=== PATIENT | female | born 1955 | race Caucasian/White ===

== ENCOUNTER 2017-05-30 00:23 | Inpatient (IN) | payer MEDICAID ==
[~2017-05-30] VITALS: Ht 160 cm; Wt 41.1 kg
[2017-05-30] MEDS ORDERED: traMADol 50 MG TAB PO ONE (02:30)
[2017-05-30] MEDS ORDERED: ALPRAZOLAM 1 MG TAB PO ONE (02:30)
--- NOTE | 2017-05-30 02:49 | RADRPT ---
PROCEDURE: CT L-Spine. CLINICAL INDICATION: Back pain TECHNIQUE: Section spiral CT images through the lumbar spine without contrast. Multiplanar recons tructions. .The CTDIvol is 6.56 mGy and the DLP is 194.55 mGycm. One or more of the following dose reduction techniques were used: automated exposure control, adjustment of the mA and/or kV accordin g to patient size, or use of iterative reconstruction technique. COMPARISON: None FINDINGS: Alignment anatomic. There is mottled mixed lytic and sclerotic density of multiple vertebral bodies . Most notable is T10 with associated probable pathologic compression fracture and approximately 55 % loss of vertebral body height. Minimal retropulsion. Mixed lytic and sclerotic density is seen t hroughout all visualized vertebral bodies, however. Minimal endplate depressions of T12 and L1 as w ell as L3-L5 but no other significant compression fracture is seen. Old left 10th rib fracture is s een. Lytic lesion of the left eleventh rib could be metastatic in nature. Slight mottled sclerotic density of the upper sacrum. No gross disk protrusion or extrusion. Small central disk bulges at L4-5 and L5-S1 with bilateral foraminal narrowing. Large staghorn calculus in the inferior left nicole al collecting system extending to the left renal pelvis is seen, measuring 3.2 x 1.1 cm. Slight vas cular calcification. IMPRESSION: Probable widespread bony metastatic disease with minor endplate depressions at multiple levels and a pproximate 55% probable pathologic compression fracture of T10. Large left renal staghorn calculus. RPTAT: [facility] Physician Shaniqua Date Time Electronically viewed and signed by Sima Becker Physician on 05/30/2017 02:48 JANINE/
--- NOTE | 2017-05-30 02:53 | RADRPT ---
PROCEDURE: Left knee. CLINICAL INDICATION: Pain. TECHNIQUE: Three views including AP, lateral and oblique views of the left knee were obtained. T he images reviewed on a PACS workstation. COMPARISON: None. FINDINGS: There is no fracture, dislocation or bone destruction. There is no significant joint space narrowin g or effusion. Bone mineralization is within normal limits. There is no radiopaque foreign body or abnormal calcification. IMPRESSION: No evidence of fracture. .Nazario Sheppard MD, Date Time Electronically viewed and signed by .Nazario Sheppard MD, on 05/30/2017 02:53 .T/
--- NOTE | 2017-05-30 03:03 | ERA ---
ER Documentation Chief Complaint Date/Time DATE: 05/30/17 TIME: 03:03 Chief Complaint Right hip pain and left knee pain HPI The patient is a 61-year-old female, presenting to the ER because of right hip pain and left knee pain for 2 weeks, denies any trauma, denies previous similar symptoms. She denies any fever, chills, chest pain, dyspnea, abdominal pain, vomiting, dysuria, diarrhea. She denies smoking or drinking or using any illicit drug On further questioning, she has had right breast lump and nipple discharge for about a year but did not seek medical attention Past medical/surgical history: None ROS All systems reviewed and are negative except as per history of present illness. Allergies Allergies: Coded Allergies: Penicillins (Verified Allergy, Unknown, 05/30/17) PMhx/Soc History of Surgery: No Hx Neurological Disorder: No Hx Respiratory Disorders: No Hx Cardiac Disorders: No Hx Psychiatric Problems: No Hx Miscellaneous Medical Probl: No Hx Alcohol Use: No Hx Substance Use: No Hx Tobacco Use: No Smoking Status: Current every day smoker Physical Exam Vitals Vital Signs Date Time Temp Pulse Resp B/P Pulse Ox O2 Delivery O2 Flow Rate FiO2 05/30/17 00:29 99.0 122 20 142/67 99 Physical Exam Const: No acute distress. Head: Atraumatic. Eyes: Normal Conjunctiva. ENT: Normal External Ears, Nose and Mouth. Neck: Full range of motion. No meningismus. Breast: Right breast is harden with discoloration, no nipple discharge Resp: Clear to auscultation bilaterally. Cardio: Regular tachycardia Abd: Soft, non distended, normal bowel sounds, non tender. Skin: No petechiae or rashes. Back: No midline or flank tenderness. Ext: Vague and mild left knee tenderness, no effusion, no edema. Mild left calf tenderness Neur: Awake and alert. No focal deficit Psych: Normal Mood and Affect. Result Diagram: 05/30/17 0320 05/30/17 0320 Results 24 hrs Laboratory Tests Test 05/30/17 03:20 White Blood Count 7.010^3/ul Red Blood Count 4.6710^6/ul Hemoglobin 12.7g/dl Hematocrit 38.8% Mean Corpuscular Volume 83.1fl Mean Corpuscular Hemoglobin 27.2pg Mean Corpuscular Hemoglobin Concent 32.7g/dl Red Cell Distribution Width 13.9% Platelet Count 32536^3/UL Mean Platelet Volume 9.0fl Neutrophils % 53.2% Lymphocytes % 32.8% Monocytes % 9.1% Eosinophils % 3.1% Basophils % 0.7% Nucleated Red Blood Cells % 0.0/100WBC Neutrophils # 3.710^3/ul Lymphocytes # 2.310^3/ul Monocytes # 0.610^3/ul Eosinophils # 0.210^3/ul Basophils # 0.110^3/ul Nucleated Red Blood Cells # 0.010^3/ul Prothrombin Time 13.2Sec Prothrombin Time Ratio 1.0 INR International Normalized Ratio 1.00 Activated Partial Thromboplast Time 31.4Sec Sodium Level 145mmol/L Potassium Level 3.9mmol/L Chloride Level 100mmol/L Carbon Dioxide Level 27mmol/L Anion Gap 22 Blood Urea Nitrogen 21mg/dl Creatinine 0.90mg/dl Glucose Level 107mg/dl Calcium Level 10.0mg/dl Total Bilirubin 0.3mg/dl Direct Bilirubin 0.00mg/dl Indirect Bilirubin 0.3mg/dl Aspartate Amino Transf (AST/SGOT) 142IU/L Alanine Aminotransferase (ALT/SGPT) 127IU/L Alkaline Phosphatase 162IU/L Total Protein 8.3g/dl Albumin 4.7g/dl Globulin 3.60g/dl Albumin/Globulin Ratio 1.30 Lipase 160U/L Current Medications Medications (Trade) Dose Ordered Sig/Jonatan Route PRN Reason Start Time Stop Time Status Last Admin Dose Admin Alprazolam (Xanax) 1 mg ONCE ONCE PO 05/30/17 02:30 05/30/17 02:31 DC 05/30/17 02:26 Tramadol HCl (Ultram) 50 mg ONCE ONCE PO 05/30/17 02:30 05/30/17 02:31 DC 05/30/17 02:26 IV Flush 10 ml 10 ml STK-MED ONCE .ROUTE 05/30/17 04:07 05/30/17 04:08 DC 05/30/17 04:24 Sodium Chloride (NS) 100 ml @ ud STK-MED ONCE .ROUTE 05/30/17 04:07 05/30/17 04:08 DC 05/30/17 04:24 Iohexol (Omnipaque 300mg/ ml) 150 ml STK-MED ONCE .ROUTE 05/30/17 04:07 05/30/17 04:08 DC 05/30/17 04:24 Procedures/MDM [place] [id number] Radiology Main Line: [phone] DIAGNOSTIC IMAGING REPORT Patient: DAKOTA GRAHAM : 1955 Age: 61 Sex: F MR #: [id number] DOS: 05/30/17 0202 Ordering MD: AMANDA LUTZ NP Location: E/R Room/Bed: PROCEDURE: CT L-Spine. CLINICAL INDICATION: Back pain TECHNIQUE: Section spiral CT images through the lumbar spine without contrast. Multiplanar reconstructions. .The CTDIvol is 6.56 mGy and the DLP is 194.55 mGycm. One or more of the following dose reduction techniques were used: automated exposure control, adjustment of the mA and/or kV according to patient size, or use of iterative reconstruction technique. COMPARISON: None FINDINGS: Alignment anatomic. There is mottled mixed lytic and sclerotic density of multiple vertebral bodies. Most notable is T10 with associated probable pathologic compression fracture and approximately 55% loss of vertebral body height. Minimal retropulsion. Mixed lytic and sclerotic density is seen throughout all visualized vertebral bodies, however. Minimal endplate depressions of T12 and L1 as well as L3-L5 but no other significant compression fracture is seen. Old left 10th rib fracture is seen. Lytic lesion of the left eleventh rib could be metastatic in nature. Slight mottled sclerotic density of the upper sacrum. No gross disk protrusion or extrusion. Small central disk bulges at L4-5 and L5-S1 with bilateral foraminal narrowing. Large staghorn calculus in the inferior left renal collecting system extending to the left renal pelvis is seen, measuring 3.2 x 1.1 cm. Slight vascular calcification. IMPRESSION: Probable widespread bony metastatic disease with minor endplate depressions at multiple levels and approximate 55% probable pathologic compression fracture of T10. Large left renal staghorn calculus. RPTAT: [facility] Physician Shaniqua Date Time Electronically viewed and signed by Sima Becker Physician on 05/30/2017 02 :48 LE/ CC: AMANDA LUTZ [place] [address] Radiology Main Line: [phone] DIAGNOSTIC IMAGING REPORT Patient: DAKOTA GRAHAM : 1955 Age: 61 Sex: F MR #: [id number] DOS: 05/30/17 0202 Ordering MD: AMANDA LUTZ NP Location: E/R Room/Bed: PROCEDURE: Left knee. CLINICAL INDICATION: Pain. TECHNIQUE: Three views including AP, lateral and oblique views of the left knee were obtained. The images reviewed on a PACS workstation. COMPARISON: None. FINDINGS: There is no fracture, dislocation or bone destruction. There is no significant joint space narrowing or effusion. Bone mineralization is within normal limits. There is no radiopaque foreign body or abnormal calcification. IMPRESSION: No evidence of fracture. .Nazario Sheppard MD, Date Time Electronically viewed and signed by .Nazario Sheppard MD, on 05/30/2017 02:53 .T/ CC: AMANDA LUTZ [place] [address] Radiology Main Line: [phone] DIAGNOSTIC IMAGING REPORT Patient: DAKOTA GRAHAM : 1955 Age: 61 Sex: F MR #: [id number] DOS: 05/30/17 0308 Ordering MD: KENDAL QUAN MD Location: E/R Room/Bed: PROCEDURE: Ultrasound examination of the right lower extremity with Doppler. CLINICAL INDICATION: Right leg pain and swelling. TECHNIQUE: Multiple sonographic images of the right lower extremity were performed with arriola scale and color Doppler. COMPARISON: None. FINDINGS: The right common femoral, superficial femoral and popliteal veins demonstrate normal color flow, waveforms, compression and response augmentation. There is no evidence of deep venous thrombosis. IMPRESSION: No evidence of deep venous thrombosis within the right lower extremity. .Nazario Sheppard MD, Date Time Electronically viewed and signed by .Nazario Sheppard MD, MD on 05/30/2017 03:37 .T/ CC: KENDAL QUAN MD [place] [address] Radiology Main Line: [phone] DIAGNOSTIC IMAGING REPORT Patient: DAKOTA GRAHAM : 1955 Age: 61 Sex: F MR #: [id number] DOS: 05/30/17 0352 Ordering MD: KENDAL QUAN MD Location: E/R Room/Bed: PROCEDURE: CT chest, abdomen and pelvis with contrast. CLINICAL INDICATION: Injury and pain. TECHNIQUE: CT of the chest, abdomen and pelvis was performed on a multi- detector high-resolution CT scanner. Contiguous axial images were obtained after the administration of 90 cc of Omnipaque-300 intravenous contrast. Coronal and sagittal reformatted images were also obtained. Images were reviewed on the PACS workstation. One or more of the following dose reduction techniques were used: - Automated exposure control. - Adjustment of the mA and/or kV according to patient size. - Use of iterative reconstruction technique. Exam CTD/vol = 4.25 mGy. Total exam DLP = 277.13 mGy-cm. COMPARISON: None. FINDINGS: Chest: There is subcutaneous stranding within the right breast with a deep fluid collection measuring 4.7 x 1.2 cm. The visualized thyroid gland is unremarkable. There is an enlarged right axillary lymph node measuring 2.0 x 1.0 cm. There are no enlarged mediastinal or hilar lymph nodes. The heart is normal in size. There is no pericardial thickening or effusion. The aorta is of normal course and caliber. There is biapical scarring. There is mild bibasilar atelectasis. There is no pleural effusion. The central tracheobronchial tree is within normal limits. There is no pneumothorax. Abdomen: The liver is normal in size. There is a 6 mm hypodense lesion within the inferior right lobe of the liver which is too small to further characterize. There is no dilatation of the biliary tree. The gallbladder is not distended. The spleen, pancreas and bilateral adrenal glands are within normal limits. Bilateral kidneys are normal in size with symmetric enhancement. There is a staghorn calculus within the lower pole of the left kidney. There is scarring within the lower pole of the left kidney. There is no focal mass, hydronephrosis or hydroureter. There is no retroperitoneal adenopathy. The abdominal aorta is of normal caliber. There is no abnormal bowel wall thickening or distension. There is no bowel obstruction or free air. A normal appendix is partially visualized. There is no diverticulosis or diverticulitis. There is no ascites. Pelvis: The bladder is unremarkable. The uterus and adnexa are within normal limits. There is no significant pelvic adenopathy or free fluid. Evaluation of the osseous structures demonstrates sclerotic metastases throughout the bony skeleton. There are mild pathologic compression deformities of the C7, T2, T4, T8 and T10 vertebral bodies. IMPRESSION: Subcutaneous stranding within the right breast with a deep fluid collection measuring 4.7 x 1.2 cm. Clinically correlate for neoplastic disease. Diffuse sclerotic metastases throughout the bony skeleton. Mild pathologic compression deformities of C7, T2, T4, T8 and T10 vertebral bodies. Staghorn calculus within the lower pole of the left kidney with cortical scarring. Prominent right axillary lymph node. Biapical pulmonary scarring. .Nazario Sheppard MD, Date Time Electronically viewed and signed by .Nazario Sheppard MD, MD on 05/30/2017 04:43 .T/ CC: KENDAL QUAN MD EKG: Read by emergency physician Rate/Rhythm: Sinus tachycardia 119 beats/min QRS, ST, T-waves: No ST elevation, no T inversion, incomplete right bundle branch block, nonspecific T abnormality Impression: Abnormal EKG MEDICAL MAKING DECISION: The patient is a 61-year-old female, presenting with acute metastatic right breast cancer, acute pathologic fracture of C7, T2, T4, T8, T10, acute right hip pain/ acute left knee pain of unclear etiology The differential diagnoses considered include but are not limited to pneumonia, pulmonary embolism, right hip fracture, left knee fracture Departure Diagnosis: Primary Impression: Primary cancer of right breast with metastasis to other site Additional Impressions: Pathologic compression fracture of cervical vertebra Pathologic compression fracture of spine Right hip pain Left knee pain Condition: Stable Comments I discussed the findings with the patient. I discussed the patient with the on- call hospitalist Dr. Dejesus at who was made aware of the lab, the treatment, the patient condition. The patient is admitted to medical surgery bed The patient's blood pressure was elevated (>120/80) but appears stable without evidence of hypertension emergency or urgency. The patient was counseled about the risks of hypertension and urged to pursue outpatient monitoring and therapy within a week with their primary care physician. KENDAL QUAN MD May 30, 2017 03:03
--- NOTE | 2017-05-30 03:37 | RADRPT ---
PROCEDURE: Ultrasound examination of the right lower extremity with Doppler. CLINICAL INDICATION: Right leg pain and swelling. TECHNIQUE: Multiple sonographic images of the right lower extremity were performed with arriola scal e and color Doppler. COMPARISON: None. FINDINGS: The right common femoral, superficial femoral and popliteal veins demonstrate normal color flow, wav eforms, compression and response augmentation. There is no evidence of deep venous thrombosis. IMPRESSION: No evidence of deep venous thrombosis within the right lower extremity. .Nazario Sheppard MD, Date Time Electronically viewed and signed by .Nazario Sheppard MD, on 05/30/2017 03:37 .T/
[2017-05-30 03:52] LABS: PARTIAL THROMBOPLASTIN TIME 31.4 Sec (25.0-35.0); PROTIME 13.2 Sec (12.2-14.2)
[2017-05-30 03:55] LABS: ALBUMIN 4.7 g/dl (3.3-4.9); ALBUMIN/GLOBULIN RATIO 1.3; BILIRUBIN,INDIRECT 0.3 mg/dl (0-1.1); BILIRUBIN,TOTAL 0.3 mg/dl (0.2-1.3); CREATININE 0.9 mg/dl (0.44-1.00); POTASSIUM 3.9 mmol/L (3.5-5.1); TOTAL PROTEIN 8.3 g/dl (6.1-8.1)
[2017-05-30 04:07] LABS: BASOPHIL # 0.1 10^3/ul (0.0-0.1); BASOPHILS % 0.7 % (0.0-2.0); EOSINOPHILS # 0.2 10^3/ul (0.0-0.5); EOSINOPHILS % 3.1 % (0.0-7.0); HEMATOCRIT 38.8 % (37.0-47.0); HEMOGLOBIN 12.7 g/dl (12.0-16.0); LYMPHOCYTES # 2.3 10^3/ul (0.8-2.9); LYMPHOCYTES % 32.8 % (15.0-51.0); MEAN CORPUSCULAR HEMOGLOBIN 27.2 pg (29.0-33.0); MEAN CORPUSCULAR HGB CONC 32.7 g/dl (32.0-37.0); MEAN CORPUSCULAR VOLUME 83.1 fl (82.0-101.0); MONOCYTE # 0.6 10^3/ul (0.3-0.9); MONOCYTES % 9.1 % (0.0-11.0); NEUTROPHIL # 3.7 10^3/ul (1.6-7.5); NEUTROPHILS % 53.2 % (39.0-77.0); PLATELET COUNT 248 10^3/UL (140-415); RED BLOOD COUNT 4.67 10^6/ul (4.20-5.40); RED CELL DISTRIBUTION WIDTH 13.9 % (11.5-14.5)
[2017-05-30] MEDS ORDERED: SOD CHLORIDE 0.9% 100 ML ONE (04:07)
[2017-05-30] MEDS ORDERED: IOHEXOL 300MG/ML 150 ML BTL ONE (04:07)
--- NOTE | 2017-05-30 04:44 | RADRPT ---
PROCEDURE: CT chest, abdomen and pelvis with contrast. CLINICAL INDICATION: Injury and pain. TECHNIQUE: CT of the chest, abdomen and pelvis was performed on a multi-detector high-resolution CT scanner. Contiguous axial images were obtained after the administration of 90 cc of Omnipaque-30 0 intravenous contrast. Coronal and sagittal reformatted images were also obtained. Images were re viewed on the PACS workstation. One or more of the following dose reduction techniques were used: - Automated exposure control. - Adjustment of the mA and/or kV according to patient size. - Use of iterative reconstruction technique. Exam CTD/vol = 4.25 mGy. Total exam DLP = 277.13 mGy-cm. COMPARISON: None. FINDINGS: Chest: There is subcutaneous stranding within the right breast with a deep fluid collection measuri ng 4.7 x 1.2 cm. The visualized thyroid gland is unremarkable. There is an enlarged right axillary lymph node measuring 2.0 x 1.0 cm. There are no enlarged mediastinal or hilar lymph nodes. The hea rt is normal in size. There is no pericardial thickening or effusion. The aorta is of normal cours e and caliber. There is biapical scarring. There is mild bibasilar atelectasis. There is no pleur al effusion. The central tracheobronchial tree is within normal limits. There is no pneumothorax. Abdomen: The liver is normal in size. There is a 6 mm hypodense lesion within the inferior right l obe of the liver which is too small to further characterize. There is no dilatation of the biliary tree. The gallbladder is not distended. The spleen, pancreas and bilateral adrenal glands are with in normal limits. Bilateral kidneys are normal in size with symmetric enhancement. There is a stag horn calculus within the lower pole of the left kidney. There is scarring within the lower pole of the left kidney. There is no focal mass, hydronephrosis or hydroureter. There is no retroperitonea l adenopathy. The abdominal aorta is of normal caliber. There is no abnormal bowel wall thickening or distension. There is no bowel obstruction or free air . A normal appendix is partially visualized. There is no diverticulosis or diverticulitis. There is no ascites. Pelvis: The bladder is unremarkable. The uterus and adnexa are within normal limits. There is no significant pelvic adenopathy or free fluid. Evaluation of the osseous structures demonstrates sclerotic metastases throughout the bony skeleton. There are mild pathologic compression deformities of the C7, T2, T4, T8 and T10 vertebral bodies. IMPRESSION: Subcutaneous stranding within the right breast with a deep fluid collection measuring 4.7 x 1.2 cm. Clinically correlate for neoplastic disease. Diffuse sclerotic metastases throughout the bony skeleton. Mild pathologic compression deformities of C7, T2, T4, T8 and T10 vertebral bodies. Staghorn calculus within the lower pole of the left kidney with cortical scarring. Prominent right axillary lymph node. Biapical pulmonary scarring. .Nazario Sheppard MD, Date Time Electronically viewed and signed by .Nazario Sheppard MD, on 05/30/2017 04:43 .T/
[2017-05-30] MEDS ORDERED: HYDROCODONE/APAP (5/325) TAB PO PRN (06:00)
[2017-05-30] MEDS ORDERED: morphine 2 MG INJ IV PRN (06:00)
[2017-05-30] MEDS: DOCUSATE SODIUM 100 MG CAP PO SCH ×2 (06:00→17:49)
[2017-05-30] MEDS ORDERED: ACETAMINOPHEN 325 MG TAB PO PRN (06:00)
[2017-05-30] MEDS ORDERED: NACL 0.9% 3 ML SYG IV SCH (06:00)
[2017-05-30] MEDS: PANTOPRAZOLE 40 MG INJ IV SCH (06:13)
[2017-05-30 07:12] LABS: CANCER ANTIGEN 125 24.2 U/ml (0.0-35.0)
[2017-05-30 07:14] LABS: C-REACTIVE PROTEIN 0.6 mg/dl (0.0-0.9)
[2017-05-30 07:16] LABS: CANCER ANTIGEN 19-9 12.2 U/ml (0.0-37.0)
[2017-05-30 07:34] LABS: IRON 54 ug/dl (35-150)
[2017-05-30 07:44] LABS: TOTAL IRON BINDING CAPACITY 283 ug/dl (241-421)
[2017-05-30 08:22] VITALS: BP 130/72; RESP 18
[2017-05-30] MEDS: BISACODYL (EC) 5 MG TAB PO SCH (09:00)
[2017-05-30] MEDS: ENOXAPARIN 40 MG/0.4 ML SYG SC SCH (10:59)
[2017-05-30 11:27] VITALS: Ht 160 cm; Wt 41.1 kg
[2017-05-30] MEDS ORDERED: ALPRAZOLAM 0.25 MG TAB PO PRN (13:00)
--- NOTE | 2017-05-30 13:07 | HP ---
Date/Time of Note Date/Time of Note DATE: 05/30/17 TIME: 12:51 Assessment/Plan VTE Prophylaxis VTE Prophylaxis Intervention: SCD's Lines/Catheters Urinary Cath still in place: No Assessment/Plan Chief Complaint/Hosp Course Assessment and plan 1.Right breast mass. Imaging done suspicious for malignancy. Will get oncologist to follow as well as surgeon. Will get bone scan. 2. Spinal lesion. Patient was suspected metastatic process to spine. Will get pain management physician to follow. Noted with small compression fractures at this time no gross disc protrusion or extrusion. Will provide with analgesics. Will get physical therapy to follow. 3. Transaminitis. Ultrasound of the abdomen is pending. Follow-up on hepatitis panel. 4. Anxiety. Will provide with anxiolytics as needed. Admission process 40 minutes Discussed plan of care with Dr. England Problems: HPI/ROS Admit Date/Time Admit Date/Time May 30, 2017 at 05:17 Hx of Present Illness This is a 61-year-old female with no reported past medical history who came to [facility] due to reports of back pain. According to the patient has been having back pain for 1 month duration. She reported that she was carrying water and subsequently since then has been having worsening back pain making it harder for her to ambulate. She subsequently went to [facility]. She was also found to have a right breast mass with the patient that she has been having for 3 months duration. She reports that she had not had a checkup for biopsy in the past. She reports her last mammogram was 2 years ago which she reports was normal. She did have imaging done with abdominal pelvic ultrasound that did show her to have some cutaneous stranding within the right breast to the deep fluid collection measuring 4.7 x 1.2 cm suspect for neoplastic disease. On physical exam patient was seen with nurse patient noted with hardened right breast with darkish discoloration from bottom portion of right breast. Her back daily and lumbar CT scan that did show her to have probable widespread bony metastatic disease with minor end plate depressions at multiple levels of approximately 55% probable compression fracture of T10. She was also seen with some transaminitis however denies any abdominal pain. We will evaluate her for the aformentiond issues. ROS 12 point review of systems obtained and entirely negative except as mentioned in the history of present illness PMH/Family/Social Past Medical History Medical History: no pertinent history Family History Significant Family History: no pertinent family hx Social History Alcohol Use: none Smoking Status: Never smoker Drug Use: none Exam/Review of Systems Vital Signs Vitals Vital Signs Date Time Temp Pulse Resp B/P Pulse Ox O2 Delivery O2 Flow Rate FiO2 05/30/17 08:22 98.2 98 18 130/72 97 05/30/17 05:41 Room Air Exam Constitutional: alert Psych: anxiety Head: normocephalic Neck: No jvd Respiratory: clear to auscultation Cardiovascular: other (tachycardic) Gastrointestinal: non-tender, soft Extremities: normal pulses Neurological: RESEARCH MICROBIOLOGIST II-XII intact, nl mental status, nl speech Labs Result Diagram: 05/30/17 0320 05/30/17 0320 Medications Medications Current Medications Ondansetron HCl (Zofran Inj) 4 mg Q6H PRN IV NAUSEA AND/OR VOMITING; Start at 06:00 Acetaminophen (Tylenol Tab) 650 mg Q6H PRN PO PAIN LEVEL 1-3 OR FEVER; Start at 06:00 Acetaminophen/ Hydrocodone Bitart ([place]nam (5/325)) 1 tab Q6H PRN PO MODERATE PAIN LEVEL 4-6; Start 05/30/17 at 06:00 Morphine Sulfate (morphine) 2 mg Q4H PRN IV SEVERE PAIN LEVEL 7-10; Start 05/30 at 06:00 Docusate Sodium (Colace) 100 mg Q12H PO ; Start 05/30/17 at 06:00 Bisacodyl (Dulcolax) 5 mg DAILY PO ; Start 05/30/17 at 09:00 Pantoprazole (Protonix Iv) 40 mg DAILY@06 IV Last administered on 05/30/17 06: 13; Admin Dose 40 MG; Start 05/30/17 at 06:00 Enoxaparin Sodium (Lovenox) 40 mg DAILY SC Last administered on 05/30/17 10:59 ; Admin Dose 40 MG; Start 05/30/17 at 09:00 Alprazolam (Xanax) 0.25 mg Q8H PRN PO ANXIETY; Start 05/30/17 at 13:00 SEAN COX May 30, 2017 13:02
--- NOTE | 2017-05-30 13:11 | CONS ---
Date/Time of Note Date/Time of Note DATE: 05/30/17 TIME: 13:06 Assessment/Plan Assessment/Plan Chief Complaint/Hosp Course Female with likely metastatic carcinoma of the right breast * Will order ultrasound-guided core biopsy of right breast mass and right axillary lymph node * Recommend oncology evaluation * Fortunately, there is no indication for surgical intervention for this widely metastatic this point. * Patient will require chemotherapy * Recommend boost/Ensure shakes to help build nutrition The above was discussed with the patient, her son and niece at the bedside as well as her primary care team. Problems: Consultation Date/Type/Reason Admit Date/Time May 30, 2017 at 05:17 Date of Consultation: May 30, 2017 Type of Consultation: GENERAL SURGERY Hx of Present Illness Patient is an unfortunate 61-year-old female who presented to the emergency room complaining of right knee and back pain. She is found to have a large breast mass. Workup which was done showed metastases to the bone. Patient states she has had this mass for several months but is never had it worked up. She had been admitted for pain control. Family also reports significant weight loss. 13 point review of systems was conducted and was negative except for that which is mentioned in HPI Past Medical History Medical History: no pertinent history Past Surgical History Past Surgical Hx: no surgical history Family History Significant Family History: no pertinent family hx Social History Smoking Status: Never smoker Exam/Review of Systems Vital Signs Vitals Vital Signs Date Time Temp Pulse Resp B/P Pulse Ox O2 Delivery O2 Flow Rate FiO2 05/30/17 08:22 98.2 98 18 130/72 97 05/30/17 05:41 Room Air Exam GENERAL: Awake, alert, oriented x 3. No acute distress. Frail and cachectic SKIN: No jaundice. HEENT: PERRLA, EOMI, No Scleral Icterus NECK: Supple without JVD CARDIOVASCULAR: S1S2, regular rate and rhythm. No murmurs appreciated. RESPIRATORY: Clear to auscultation bilaterally. BREASTS: Right breast with large firm mass encompassing the entire lower breast with skin changes. Likely involving chest wall. There is palpable right axillary lymphadenopathy. There is no left breast mass or left axillary lymphadenopathy. ABDOMEN: Soft, bowel sounds present, nondistended, nontender to palpation. EXTREMITIES: Free range of motion x 4. No cyanosis, edema, or clubbing. NEUROLOGIC: Cranial nerves II-XII are intact. Sensation is intact grossly. Results Result Diagram: 05/30/17 0320 05/30/17 0320 Results 24 hrs Laboratory Tests Test 05/30/17 03:20 05/30/17 06:07 White Blood Count 7.0 Red Blood Count 4.67 Hemoglobin 12.7 Hematocrit 38.8 Mean Corpuscular Volume 83.1 Mean Corpuscular Hemoglobin 27.2 L Mean Corpuscular Hemoglobin Concent 32.7 Red Cell Distribution Width 13.9 Platelet Count 248 Mean Platelet Volume 9.0 Neutrophils % 53.2 Lymphocytes % 32.8 Monocytes % 9.1 Eosinophils % 3.1 Basophils % 0.7 Nucleated Red Blood Cells % 0.0 Neutrophils # 3.7 Lymphocytes # 2.3 Monocytes # 0.6 Eosinophils # 0.2 Basophils # 0.1 Nucleated Red Blood Cells # 0.0 Prothrombin Time 13.2 Prothrombin Time Ratio 1.0 INR International Normalized Ratio 1.00 Activated Partial Thromboplast Time 31.4 Sodium Level 145 H Potassium Level 3.9 Chloride Level 100 Carbon Dioxide Level 27 Anion Gap 22 H Blood Urea Nitrogen 21 H Creatinine 0.90 Glucose Level 107 Calcium Level 10.0 Total Bilirubin 0.3 Direct Bilirubin 0.00 Indirect Bilirubin 0.3 Aspartate Amino Transf (AST/SGOT) 142 H Alanine Aminotransferase (ALT/SGPT) 127 H Alkaline Phosphatase 162 H Total Protein 8.3 H Albumin 4.7 Globulin 3.60 H Albumin/Globulin Ratio 1.30 Lipase 160 Erythrocyte Sedimentation Rate 40 H Iron Level 54 Total Iron Binding Capacity 283 Percent Iron Saturation 19 L C-Reactive Protein 0.6 Carcinoembryonic Antigen 926.0 H CA 19-9 Antigen 12.2 CA 125 Antigen 24.2 Thyroid Stimulating Hormone (TSH) Pending Parathyroid Hormone (Intact) Medications Medications Current Medications Ondansetron HCl (Zofran Inj) 4 mg Q6H PRN IV NAUSEA AND/OR VOMITING; Start at 06:00 Acetaminophen (Tylenol Tab) 650 mg Q6H PRN PO PAIN LEVEL 1-3 OR FEVER; Start at 06:00 Acetaminophen/ Hydrocodone Bitart (Otis (5/325)) 1 tab Q6H PRN PO MODERATE PAIN LEVEL 4-6; Start 05/30/17 at 06:00 Morphine Sulfate (morphine) 2 mg Q4H PRN IV SEVERE PAIN LEVEL 7-10; Start 05/30 at 06:00 Docusate Sodium (Colace) 100 mg Q12H PO ; Start 05/30/17 at 06:00 Bisacodyl (Dulcolax) 5 mg DAILY PO ; Start 05/30/17 at 09:00 Pantoprazole (Protonix Iv) 40 mg DAILY@06 IV Last administered on 05/30/17 06: 13; Admin Dose 40 MG; Start 05/30/17 at 06:00 Enoxaparin Sodium (Lovenox) 40 mg DAILY SC Last administered on 05/30/17 10:59 ; Admin Dose 40 MG; Start 05/30/17 at 09:00 Alprazolam (Xanax) 0.25 mg Q8H PRN PO ANXIETY; Start 05/30/17 at 13:00 KENDAL ALEXIS MD May 30, 2017 13:11
--- NOTE | 2017-05-30 14:43 | RADRPT ---
PROCEDURE: US Abdomen. CLINICAL INDICATION: Abdominal pain. TECHNIQUE: Multiple real-time images were acquired of the patient's right upper quadrant utilizing a high resolution transducer. The images were reviewed on a high-resolution PACS workstation. COMPARISON: None FINDINGS: The liver demonstrates normal echogenicity and size and no focal lesions are seen. The liver measure s 13.7 cm in size. No gallstones are identified within the gallbladder. There is no pericholecystic fluid. The gallbladder wall measures 1.3 mm in size. No intrahepatic biliary dilatation is seen. The common bile duct measures 3.1 mm in maximal dimension. The visualized portions of the pancreas are unremarkable. No free fluid is identified. The right kidney is of normal size, and demonstrate normal echogenicity and morphology. The right k idney measures 10.7 cm. There are is no dilatation of the right collecting system. There are no pe rinephric fluid collections. There are no areas of increased echogenicity to suggest nephrolithiasi s. IMPRESSION: Unremarkable right upper quadrant ultrasound. RPTAT: HPNM Physician Corey Date Time Electronically viewed and signed by Physician Corey on 05/30/2017 14:43 /
[2017-05-30 15:18] VITALS: BP 126/69; RESP 19
[2017-05-30 19:20] VITALS: BP 111/56; RESP 18
[2017-05-31] MEDS: DOCUSATE SODIUM 100 MG CAP PO SCH ×2 (05:09→18:00)
[2017-05-31] MEDS: PANTOPRAZOLE 40 MG INJ IV SCH (05:09)
[2017-05-31 06:34] LABS: ALBUMIN 4.2 g/dl (3.3-4.9); ALBUMIN/GLOBULIN RATIO 1.27; BILIRUBIN,INDIRECT 0.5 mg/dl (0-1.1); BILIRUBIN,TOTAL 0.5 mg/dl (0.2-1.3); CREATININE 1.01 mg/dl (0.44-1.00); MAGNESIUM 2.1 mg/dl (1.7-2.5); POTASSIUM 4.3 mmol/L (3.5-5.1); TOTAL PROTEIN 7.5 g/dl (6.1-8.1)
[2017-05-31] MEDS: BISACODYL (EC) 5 MG TAB PO SCH (08:23)
--- NOTE | 2017-05-31 08:23 | CONS ---
Date/Time of Note Date/Time of Note DATE: 05/31/17 TIME: 08:18 Assessment/Plan Assessment/Plan Additional Assessment/Plan Metastatic cancer Breast mass Widespread pathological fractures of thoracic spine and lumbar sacral spine Profound weight loss Severe back pain secondary to metastasis She is very uncomfortable at this time but refused pain control medications yesterday . Today she is much more comfortable her son is at the bedside and is translating for me. Her pain is primarily located in her thoracic lumbar spine with minimal movement. Has had an extensive conversation with patient and her son at this time will begin a HAND STITCHER, steroids and Zometa. Have taken the liberty of ordering the MRI of the brain and CT of the chest. Suggest oncologic consultation. Consultation Date/Type/Reason Admit Date/Time May 30, 2017 at 05:17 Date of Consultation: May 31, 2017 Hx of Present Illness 61-year-old female who presented to emergency room [facility] in pain, primarily lumbosacral spine. Apparently this is been going on for a couple of months prior to his presentation, increase in severity associated with profound weight loss. Pain is described as 10/10 with minimal movement, throbbing pain that does not radiate into her chest wall.. Pain is interfering with her overall physical function and sleeping patterns. She is only received morphine up until this time but has not ask for as needed dosings for unclear reasons. When she does take morphine as needed she has some alleviation of pain but only moderately. Her son states that she is having periodic bouts of nausea but without vomiting. Patient has no past medical history of opioid use abuse smoking or alcohol consumption. Presumptive diagnosis is metastatic breast cancer with metastases to lumbar sacral spine, biopsy pending. MPRESSION: Subcutaneous stranding within the right breast with a deep fluid collection measuring 4.7 x 1.2 cm. Clinically correlate for neoplastic disease. Diffuse sclerotic metastases throughout the bony skeleton. Mild pathologic compression deformities of C7, T2, T4, T8 and T10 vertebral bodies. Staghorn calculus within the lower pole of the left kidney with cortical scarring. Prominent right axillary lymph node. Biapical pulmonary scarring. Eyes: no complaints ENT: no complaints Respiratory: no complaints Cardiovascular: no complaints Neurologic: no complaints Psychological: anxiety Past Medical History Medical History: no pertinent history Past Surgical History Past Surgical Hx: no surgical history Social History Alcohol Use: none Smoking Status: Never smoker Drug Use: none Exam/Review of Systems Vital Signs Vitals Vital Signs Date Time Temp Pulse Resp B/P Pulse Ox O2 Delivery O2 Flow Rate FiO2 05/30/17 19:20 99.2 18 111/56 99 05/30/17 15:18 116 05/30/17 05:41 Room Air Intake and Output 05/30/17 05/30/17 05/31/17 15:00 23:00 07:00 Intake Total 1260 ml 400 ml Output Total 850 ml Balance 410 ml 400 ml Exam Constitutional: distress Psych: nl mood/affect, no complaints Head: atraumatic, normocephalic Eyes: EOMI, PERRL, nl conjunctiva, nl lids, nl sclera ENMT: nl external ears & nose, nl lips & teeth, nl nasal mucosa & septum Respiratory: clear to auscultation, normal air movement Cardiovascular: nl pulses, regular rate and rhythm Neurological: INCIDENT RESPONSE LEAD II-XII intact, nl mental status, nl speech, nl strength Results Result Diagram: 05/30/17 0320 05/31/17 0427 Results 24 hrs Laboratory Tests Test 05/31/17 04:27 Sodium Level 143 Potassium Level 4.3 Chloride Level 99 Carbon Dioxide Level 29 Anion Gap 19 H Blood Urea Nitrogen 20 Creatinine 1.01 H Glucose Level 91 Calcium Level 10.0 Magnesium Level 2.1 Total Bilirubin 0.5 Direct Bilirubin 0.00 Indirect Bilirubin 0.5 Aspartate Amino Transf (AST/SGOT) 139 H Alanine Aminotransferase (ALT/SGPT) 136 H Alkaline Phosphatase 155 H Total Protein 7.5 Albumin 4.2 Globulin 3.30 H Albumin/Globulin Ratio 1.27 Thyroid Stimulating Hormone (TSH) Pending Medications Medications Current Medications Ondansetron HCl (Zofran Inj) 4 mg Q6H PRN IV NAUSEA AND/OR VOMITING; Start at 06:00 Acetaminophen (Tylenol Tab) 650 mg Q6H PRN PO PAIN LEVEL 1-3 OR FEVER; Start at 06:00 Acetaminophen/ Hydrocodone Bitart (Sutton (5/325)) 1 tab Q6H PRN PO MODERATE PAIN LEVEL 4-6 Last administered on 05/30/17 19:38; Admin Dose 1 TAB; Start at 06:00 Morphine Sulfate (morphine) 2 mg Q4H PRN IV SEVERE PAIN LEVEL 7-10; Start 05/30 at 06:00 Docusate Sodium (Colace) 100 mg Q12H PO Last administered on 05/31/17 05:09; Admin Dose 100 MG; Start 05/30/17 at 06:00 Bisacodyl (Dulcolax) 5 mg DAILY PO ; Start 05/30/17 at 09:00 Pantoprazole (Protonix Iv) 40 mg DAILY@06 IV Last administered on 05/31/17 05: 09; Admin Dose 40 MG; Start 05/30/17 at 06:00 Enoxaparin Sodium (Lovenox) 40 mg DAILY SC Last administered on 05/30/17 10:59 ; Admin Dose 40 MG; Start 05/30/17 at 09:00 Alprazolam (Xanax) 0.25 mg Q8H PRN PO ANXIETY Last administered on 05/30/17 14 :46; Admin Dose 0.25 MG; Start 05/30/17 at 13:00 HILLARY GALE May 31, 2017 08:23
[2017-05-31 08:35] VITALS: BP 124/67; RESP 18
[2017-05-31] MEDS: ENOXAPARIN 40 MG/0.4 ML SYG SC SCH (08:41)
[2017-05-31] MEDS ORDERED: morphine 4 MG/ML VIAL IV ONE (09:00)
[2017-05-31] MEDS: DEXAMETHASONE 10 MG/ML 1 ML INJ IV SCH ×2 (09:18→20:27)
[2017-05-31 09:43] LABS: THYROID STIMULATING HORMONE 4.08 MIU/L (0.465-4.680)
[2017-05-31] MEDS: ONDANSETRON 4 MG INJ IV PRN ×2 (10:09→16:46)
[2017-05-31] MEDS: HYDROmorphONE 0.2 MG/ML PCA IV SCH (10:15)
[2017-05-31] MEDS ORDERED: ZOLEDRONIC ACID 3 MG in SOD CHLORIDE 0.9% 100 ML IVPB ONE (10:30)
--- NOTE | 2017-05-31 11:53 | RADRPT ---
PROCEDURE: MRI Brain without and with contrast. CLINICAL INDICATION: Metastatic right breast cancer. TECHNIQUE: An MRI of the brain was performed utilizing the following sequences: Sagittal T1-weigh jesenia, axial T2-weighted, axial FLAIR, axial T1, coronal GRE axial diffusion-weighted with ADC mapping . Following the uneventful administration of 10 cc Magnevist, postcontrast axial and coronal T1-weig hted images axial FSPGR were obtained. Images were viewed on a PACS workstation. COMPARISON: No prior studies are available for comparison. FINDINGS: No diffusion weighted abnormalities are seen to suggest the presence of acute ischemia or recent inf arct. There is no intracranial hemorrhage, mass effect, or midline shift. No extra-axial fluid col lection is seen. The ventricles and sulci are mildly enlarged indicative of volume loss. There are mild scattered foci of T2 and FLAIR hyperintensity in the periventricular, deep, and subco rtical white matter, which are nonspecific in etiology but likely reflect chronic small vessel ische marybel changes. The gradient echo images reveal no areas of susceptibility artifact to suggest blood d egradation products or abnormal calcification. Multiple bilateral calvarial and upper cervical spine lesions, some of which demonstrate enhancement , with adjacent dural involvement and small soft tissue components, for example in the right paramed fito frontal lobe bone measures approximately 3.6 x 3.2 x 1.1 cm (AP x transverse x craniocaudal) and in the left parietal lobe measures 4.0 x 3.8 x 1.2 cm(AP x transverse x craniocaudal). These are mo st compatible with osseous metastasis. Otherwise no abnormal intraparenchymal or ependymal enhancement is seen. No abnormal intracranial vascular flow voids are noted. The pituitary and sella reveal no abnormali ty. The suprasellar cistern is clear. The visualized paranasal sinuses are clear. Focal opacificat ion of right mastoid air cells are noted. IMPRESSION: 1. Osseous metastasis involving bilateral calvarium and partially visualized upper cervical spine. 2. No acute intracranial hemorrhage or infarction. No intracranial parenchymal mass or enhancing le rogelio to suggest metastasis. 3. Mild chronic small vessel ischemic changes. 4. Mild generalized cerebral volume loss. RPTAT: JJ .Farbod Nasseri, MD, MD Date Time Electronically viewed and signed by .Troy Winslow MD, MD on 05/31/2017 11:53 .N/
--- NOTE | 2017-05-31 12:47 | RADRPT ---
PROCEDURE: Bilateral breast ultrasound. CLINICAL INDICATION: Breast pain and tenderness, fibrocystic disease of breast. Right breast mass. TECHNIQUE: Bilateral whole breast, 4 quadrant and retroareolar, and axillary sonography was perfor med. COMPARISON: None FINDINGS: At the right 6 o'clock position; there is a round, circumscribed, avascular, 14 x 13 x 10 mm sonogra phic nodule. There is a mildly prominent, 9 mm right axillary lymph node. Additional evaluation wi th right diagnostic mammography is needed. The left breast and left axilla are negative. IMPRESSION: 1. Right 6 o'clock position 14 mm circumscribed sonographic nodule with a mildly prominent 9 mm rig ht axillary lymph node. Additional evaluation with right diagnostic mammography is needed. 2. The left breast and left axilla are negative. ACR BIRADS 0: Incomplete. Need additional imaging evaluation. RPTAT: EE .Chloe Caldwell MD, Date Time Electronically viewed and signed by .Chloe Caldwell MD, on 05/31/2017 12:47 .F/
[2017-05-31] MEDS ORDERED: LIDOCAINE 1% (MPF) 5 ML VIAL ONE (12:51)
--- NOTE | 2017-05-31 13:13 | RADRPT ---
PROCEDURE: Ultrasound guided right breast biopsy. CLINICAL INDICATION: Right breast mass. TECHNIQUE: Prior to the procedure, informed consent was obtained. Risks including bleeding and in fection were explained to the patient. The patient understood was willing to proceed. A procedural pause was performed. The patient's name, date of , and procedure to be performed were verifie d. Using local anesthetic, sterile technique and ultrasound guidance, a 14-gauge automated core biopsy needle was used to biopsy the mass in the right breast at the 6 o'clock position. Multiple passes w ere made. Adequate tissue was obtained and sent for pathologic analysis. The patient tolerated the procedure well. COMPARISON: Bilateral breast ultrasound done earlier the same day. FINDINGS: Images demonstrate the needle within the mass in 6 o'clock position of the right breast. IMPRESSION: 1. Satisfactory ultrasound-guided right breast biopsy. RPTAT: QQ .Damion Christopher MD, Date Time Electronically viewed and signed by .Damion Christopher MD, on 05/31/2017 13:13 .R/
[2017-05-31] MEDS: D5W-0.45 NACL + KCL 20 MEQ 1,000 ML IV SCH (13:34)
[2017-05-31] MEDS: METOPROLOL (XL) 25 MG TAB PO SCH (13:36)
[2017-05-31 13:38] VITALS: BP 131/67; PULSE 113; RESP 16
--- NOTE | 2017-05-31 14:21 | PN ---
Date/Time of Note Date/Time of Note DATE: 05/31/17 TIME: 14:08 Assessment/Plan VTE Prophylaxis VTE Prophylaxis Intervention: SCD's Lines/Catheters IV Catheter Type (from Nrs): Peripheral IV Urinary Cath still in place: No Assessment/Plan Chief Complaint/Hosp Course Assessment and plan 1.Right breast mass. patient status post right breast biopsy. Follow-up with results. Continue with oncologist recommendations. Tentative plan for bone scan. 2. Spinal lesion. With likely metastasis. Continue with pain management physician regimen. Physical therapy to follow. 3. Osseous metastasis involving bilateral calvarium and partially visualized upper cervical spine per brain MRI. Follow-up with breast biopsy. Follow-up with oncologist recognitions 3. Transaminitis. Etiology unclear. Hepatitis panel pending. Will get interactive designer pending clinical course 4. Anxiety. Will provide with anxiolytics as needed. Disposition and plan: Follow-up on breast biopsy. Continue with analgesics. Follow-up with java consultant recommendations Discussed plan of care with Dr. Crocker Problems: Subjective 24 Hr Interval Summary Free Text/Dictation on test preparer drip. no reports of pain at this time. family at bedside Exam/Review of Systems Vital Signs Vitals Vital Signs Date Time Temp Pulse Resp B/P Pulse Ox O2 Delivery O2 Flow Rate FiO2 05/31/17 13:38 98.0 113 16 131/67 97 Room Air Intake and Output 05/30/17 05/30/17 05/31/17 14:59 22:59 06:59 Intake Total 1260 ml 400 ml Output Total 850 ml Balance 410 ml 400 ml Exam Constitutional: alert, frail, oriented Psych: anxiety Head: normocephalic Neck: No jvd Respiratory: clear to auscultation Cardiovascular: other (tachycardic) Gastrointestinal: non-tender, soft Neurological: PERFORMANCE IMPROVEMENT ANALYST II-XII intact, nl mental status, nl speech Results Result Diagram: 05/30/17 0320 05/31/17 0427 Results 24 hrs Laboratory Tests Test 05/31/17 04:27 Sodium Level 143 Potassium Level 4.3 Chloride Level 99 Carbon Dioxide Level 29 Anion Gap 19 H Blood Urea Nitrogen 20 Creatinine 1.01 H Glucose Level 91 Calcium Level 10.0 Magnesium Level 2.1 Total Bilirubin 0.5 Direct Bilirubin 0.00 Indirect Bilirubin 0.5 Aspartate Amino Transf (AST/SGOT) 139 H Alanine Aminotransferase (ALT/SGPT) 136 H Alkaline Phosphatase 155 H Total Protein 7.5 Albumin 4.2 Globulin 3.30 H Albumin/Globulin Ratio 1.27 Thyroid Stimulating Hormone (TSH) 4.080 Medications Medications Current Medications Ondansetron HCl (Zofran Inj) 4 mg Q6H PRN IV NAUSEA AND/OR VOMITING Last administered on 05/31/17 10:09; Admin Dose 4 MG; Start 05/30/17 at 06:00 Acetaminophen (Tylenol Tab) 650 mg Q6H PRN PO PAIN LEVEL 1-3 OR FEVER; Start at 06:00 Docusate Sodium (Colace) 100 mg Q12H PO Last administered on 05/31/17 05:09; Admin Dose 100 MG; Start 05/30/17 at 06:00 Bisacodyl (Dulcolax) 5 mg DAILY PO Last administered on 05/31/17 08:23; Admin Dose 5 MG; Start 05/30/17 at 09:00 Pantoprazole (Protonix Iv) 40 mg DAILY@06 IV Last administered on 05/31/17 05: 09; Admin Dose 40 MG; Start 05/30/17 at 06:00 Enoxaparin Sodium (Lovenox) 40 mg DAILY SC Last administered on 05/31/17 08:41 ; Admin Dose 40 MG; Start 05/30/17 at 09:00 Alprazolam (Xanax) 0.25 mg Q8H PRN PO ANXIETY Last administered on 05/30/17 14 :46; Admin Dose 0.25 MG; Start 05/30/17 at 13:00 Hydromorphone HCl (Dilaudid LAY OUT MACHINE OPERATOR) 0.2 MG/HR CONTINUOUS R... Q4PCA IV Last administered on 05/31/17 10:15; Admin Dose 6 MG; Start 05/31/17 at 08:30 Dexamethasone 6 mg 6 mg BID IV Last administered on 05/31/17 09:18; Admin Dose 6 MG; Start 05/31/17 at 09:00 Potassium Chloride/Dextrose/ Sod Cl (D5-1/2ns + KCl 20 Meq) 1,000 ml @ 75 mls/ hr [id number] IV Last administered on 05/31/17 13:34; Admin Dose 75 MLS/HR; Start 05/31/17 at 11:00 Metoprolol Succinate (Toprol Xl) 25 mg DAILY PO Last administered on 05/31/17t 13:36; Admin Dose 25 MG; Start 05/31/17 at 11:00 SEAN COX May 31, 2017 14:18
[2017-05-31 14:22] VITALS: BP 131/67; RESP 18
[2017-05-31 15:16] LABS: HAAIG REFLEX REFLEX FILED
--- NOTE | 2017-05-31 15:52 | CONS ---
Date/Time of Note Date/Time of Note DATE: 05/31/17 TIME: 15:32 Assessment/Plan Assessment/Plan Chief Complaint/Hosp Course 61 yo with L breast mass with widespread disease on CT scan which demonstrates subcutaneous stranding within the right breast with a deep fluid collection measuring 4.7 x 1.2 cm , as well as diffuse sclerotic mets, mild pathologic compression of C7, T2, T4, T8 and T10 vertebral bodies as well as a prominent R axillary LN #Breast mass -f/u Breast bx -given that this is likely breast cancer, will need to f/u ER/AR Her2 status to determine the course for treatment #Back Pain - secondary to T spine compression fracture -pt will likely need XRT to spine once a diagnosis has been made #Bone Mets -once a diagnosis has been established, will start bisphosphonate therapy Problems: (1) Left knee pain Status: Acute (2) Pathologic compression fracture of spine Status: Acute (3) Primary cancer of right breast with metastasis to other site Status: Acute Consultation Date/Type/Reason Admit Date/Time May 30, 2017 at 05:17 Date of Consultation: May 31, 2017 Type of Consultation: Oncology Reason for Consultation metastatic cancer Referring Provider: KE GOZNALEZ Hx of Present Illness 61-year-old female with no reported past medical history who presents to [facility] with L lower back pain and L leg pain x 2 months. Pt also endorses a growing L sided breast mass x 2 months as well. She has lost significant weight over this time. She does endorse decreased appetite and nausea. cShe reports her last mammogram was 2 years ago which she reports was normal. She did have imaging done with abdominal pelvic ultrasound that did show her to have some cutaneous stranding within the right breast to the deep fluid collection measuring 4.7 x 1.2 cm suspect for neoplastic disease. A lumbar CT scan that did show her to have probable widespread bony metastatic disease with minor end plate depressions at multiple levels of approximately 55% probable compression fracture of T10. She was also seen with some transaminitis however denies any abdominal pain. We have been consulted given the concern for underlying malignancy Constitutional: other (dizziness), poor po Eyes: no complaints ENT: no complaints Respiratory: no complaints Cardiovascular: no complaints Gastrointestinal: decreased appetite, nausea, pain Musculoskeletal: back pain, bone/joint pain Neurologic: no complaints Psychological: anxiety Past Medical History h/o left sided breast mass Past Surgical History Past Surgical Hx: no surgical history Family History Significant Family History: no pertinent family hx Social History Alcohol Use: none Smoking Status: Never smoker Drug Use: none Exam/Review of Systems Vital Signs Vitals Vital Signs Date Time Temp Pulse Resp B/P Pulse Ox O2 Delivery O2 Flow Rate FiO2 05/31/17 14:22 98.0 113 18 131/67 98 05/31/17 13:38 Room Air Intake and Output 05/30/17 05/30/17 05/31/17 15:00 23:00 07:00 Intake Total 1260 ml 400 ml Output Total 850 ml Balance 410 ml 400 ml Exam Constitutional: alert, frail, oriented Head: atraumatic, normocephalic Eyes: nl conjunctiva ENMT: nl external ears & nose Neck: non-tender, supple Respiratory: clear to auscultation Cardiovascular: nl pulses, regular rate and rhythm Gastrointestinal: soft Musculoskeletal: muscle weakness, nl extremities to inspection Extremities: normal pulses Results Result Diagram: 05/30/17 0320 05/31/17 0427 Results 24 hrs Laboratory Tests Test 05/31/17 04:27 05/31/17 14:30 Sodium Level 143 Potassium Level 4.3 Chloride Level 99 Carbon Dioxide Level 29 Anion Gap 19 H Blood Urea Nitrogen 20 Creatinine 1.01 H Glucose Level 91 Calcium Level 10.0 Magnesium Level 2.1 Total Bilirubin 0.5 Direct Bilirubin 0.00 Indirect Bilirubin 0.5 Aspartate Amino Transf (AST/SGOT) 139 H Alanine Aminotransferase (ALT/SGPT) 136 H Alkaline Phosphatase 155 H Total Protein 7.5 Albumin 4.2 Globulin 3.30 H Albumin/Globulin Ratio 1.27 Thyroid Stimulating Hormone (TSH) 4.080 Hepatitis B Surface Antigen Pending Hepatitis B Core Total Antibody Pending Hepatitis C Antibody Pending Medications Medications Current Medications Ondansetron HCl (Zofran Inj) 4 mg Q6H PRN IV NAUSEA AND/OR VOMITING Last administered on 05/31/17 10:09; Admin Dose 4 MG; Start 05/30/17 at 06:00 Acetaminophen (Tylenol Tab) 650 mg Q6H PRN PO PAIN LEVEL 1-3 OR FEVER; Start at 06:00 Docusate Sodium (Colace) 100 mg Q12H PO Last administered on 05/31/17 05:09; Admin Dose 100 MG; Start 05/30/17 at 06:00 Bisacodyl (Dulcolax) 5 mg DAILY PO Last administered on 05/31/17 08:23; Admin Dose 5 MG; Start 05/30/17 at 09:00 Pantoprazole (Protonix Iv) 40 mg DAILY@06 IV Last administered on 05/31/17 05: 09; Admin Dose 40 MG; Start 05/30/17 at 06:00 Enoxaparin Sodium (Lovenox) 40 mg DAILY SC Last administered on 05/31/17 08:41 ; Admin Dose 40 MG; Start 05/30/17 at 09:00 Alprazolam (Xanax) 0.25 mg Q8H PRN PO ANXIETY Last administered on 05/30/17 14 :46; Admin Dose 0.25 MG; Start 05/30/17 at 13:00 Hydromorphone HCl (Dilaudid PSYCHOLOGIST DEVELOPMENTAL) 0.2 MG/HR CONTINUOUS R... Q4PCA IV Last administered on 05/31/17 10:15; Admin Dose 6 MG; Start 05/31/17 at 08:30 Dexamethasone 6 mg 6 mg BID IV Last administered on 05/31/17 09:18; Admin Dose 6 MG; Start 05/31/17 at 09:00 Potassium Chloride/Dextrose/ Sod Cl (D5-1/2ns + KCl 20 Meq) 1,000 ml @ 75 mls/ hr [id number] IV Last administered on 05/31/17 13:34; Admin Dose 75 MLS/HR; Start 05/31/17 at 11:00 Metoprolol Succinate (Toprol Xl) 25 mg DAILY PO Last administered on 05/31/17 13:36; Admin Dose 25 MG; Start 05/31/17 at 11:00 ZELDA ASHTON M.D. May 31, 2017 15:44
[2017-05-31] MEDS ORDERED: METOCLOPRAMIDE 10 MG INJ IV PRN (16:00)
[2017-05-31 16:44] LABS: HEPATITIS B CORE ANTIBODY NEGATIVE (NEGATIVE)
[2017-05-31] MEDS ORDERED: IOHEXOL 300MG/ML 150 ML BTL ONE (17:31)
[2017-05-31] MEDS ORDERED: SOD CHLORIDE 0.9% 100 ML ONE (17:31)
--- NOTE | 2017-05-31 17:31 | RADRPT ---
PROCEDURE: CT Chest with contrast. CLINICAL INDICATION: Breast cancer. Evaluate for metastases. TECHNIQUE: CT scan of the chest with contrast was performed following the uncomplicated intravenou s administration of 75 cc of Omnipaque-300. Coronal and sagittal reformatted images were obtained f rom the axial source images. Images were reviewed on a high-resolution PACS workstation. CTDIvol (mG y): 3.78; Total Exam DLP (mGy-cm): 130.94. One or more of the following dose reduction techniques were utilized: - Automated exposure control. - Adjustment of the mA and/or kV according to patient size. - Use of iterative reconstruction technique. COMPARISON: CT chest abdomen pelvis 05/30/2017. FINDINGS: Limited imaging of the lower neck is unremarkable. The heart is not enlarged. There is no pericardial effusion. There is no mediastinal or hilar lymp hadenopathy. There is a mildly enlarged right axillary lymph node measuring 9 mm in short axis The t horacic aorta is normal in caliber. The pulmonary arteries are not enlarged. Bilateral apical scarring is observed. The remainder of the lungs are otherwise clear. There is no pulmonary consolidation or concerning pulmonary nodule. The tracheobronchial tree is normal in karen iber. There is no bronchial wall thickening. There is no pleural effusion. Limited imaging of the upper abdomen is unremarkable. Skin and trabecular thickening of the right breast is observed. Thickening of the soft tissues withi n the deep portion of the right breast is observed along with a thin fluid collection, which is unch anged. Numerous faint sclerotic lesions are seen throughout the thoracic spine. Moderate compression fractures of T8 and T10 are present. Multiple sclerotic round lesions are seen bilaterally. IMPRESSION: No evidence of pulmonary metastases. Osseous metastases with moderate pathologic compression fractures of T8 and T10, unchanged. Skin and trabecular thickening of the right breast with a small fluid collection of the deep soft ti ssues, unchanged. Mildly enlarged right axillary lymph node. RPTAT: [facility] .Marissa Luciano MD, Date Time Electronically viewed and signed by .Marissa Luciano MD, on 05/31/2017 17:31 .T/
[2017-05-31 19:16] VITALS: BP 138/65; RESP 17
[2017-06-01] MEDS: D5W-0.45 NACL + KCL 20 MEQ 1,000 ML IV SCH ×2 (02:26→16:54)
[2017-06-01 02:31] VITALS: BP 118/65; RESP 18
[2017-06-01] MEDS: ONDANSETRON 4 MG INJ IV PRN ×2 (02:58→10:13)
[2017-06-01 05:13] LABS: WHITE BLOOD COUNT 8.4 10^3/ul (4.8-10.8)
[2017-06-01 05:14] LABS: BASOPHILS % 0.2 % (0.0-2.0); HEMATOCRIT 37.4 % (37.0-47.0); HEMOGLOBIN 12.4 g/dl (12.0-16.0); LYMPHOCYTES # 1.6 10^3/ul (0.8-2.9); LYMPHOCYTES % 19.1 % (15.0-51.0); MEAN CORPUSCULAR HEMOGLOBIN 27.5 pg (29.0-33.0); MEAN CORPUSCULAR HGB CONC 33.2 g/dl (32.0-37.0); MEAN CORPUSCULAR VOLUME 82.9 fl (82.0-101.0); MEAN PLATELET VOLUME 8.9 fl (7.4-10.4); MONOCYTE # 0.3 10^3/ul (0.3-0.9); MONOCYTES % 3.9 % (0.0-11.0); NEUTROPHIL # 6.4 10^3/ul (1.6-7.5); NEUTROPHILS % 76.1 % (39.0-77.0); PLATELET COUNT 239 10^3/UL (140-415); RED BLOOD COUNT 4.51 10^6/ul (4.20-5.40); RED CELL DISTRIBUTION WIDTH 13.8 % (11.5-14.5)
[2017-06-01 05:44] LABS: CALCIUM 9.7 mg/dl (8.4-10.2); CREATININE 0.79 mg/dl (0.44-1.00); POTASSIUM 4.5 mmol/L (3.5-5.1)
[2017-06-01] MEDS: PANTOPRAZOLE 40 MG INJ IV SCH (05:50)
[2017-06-01] MEDS: DOCUSATE SODIUM 100 MG CAP PO SCH ×2 (05:50→18:59)
[2017-06-01 08:10] VITALS: BP 124/64; RESP 18
[2017-06-01] MEDS: BISACODYL (EC) 5 MG TAB PO SCH (09:00)
[2017-06-01] MEDS: ENOXAPARIN 40 MG/0.4 ML SYG SC SCH (10:09)
[2017-06-01] MEDS: METOPROLOL (XL) 25 MG TAB PO SCH (10:10)
[2017-06-01] MEDS: DEXAMETHASONE 10 MG/ML 1 ML INJ IV SCH ×2 (10:14→20:35)
--- NOTE | 2017-06-01 14:32 | PN ---
Date/Time of Note Date/Time of Note DATE: 06/01/17 TIME: 14:28 Assessment/Plan VTE Prophylaxis VTE Prophylaxis Intervention: LMWH Lines/Catheters IV Catheter Type (from Nrs): Peripheral IV Urinary Cath still in place: No Assessment/Plan Chief Complaint/Hosp Course Assessment and plan 1.Right breast mass. patient status post right breast biopsy. Follow-up with results. Continue with oncologist recommendations. Follow-up with surgeon recommendation. 2. Spinal lesion with pathologic compression fracture. With likely metastasis. Continue with pain management physician regimen. Physical therapy to follow. 3. Osseous metastasis involving bilateral calvarium and partially visualized upper cervical spine per brain MRI. Follow-up with breast biopsy. Follow-up with oncologist r recommendations 3. Transaminitis. Etiology unclear. Hepatitis panel is negative. Did have CT scan of abdomen that did show a 6 mm hypodense lesion within the inferior right lobe of the liver which is too small to further characterize per report. Is downward trending. Will monitor for now. 4. Anxiety. Will provide with anxiolytics as needed. Disposition and plan: Follow-up with breast biopsy as well as bone scan. Follow -up with her oncologist and surgeon recommendations. Past monitoring. Continue with analgesics. Discussed plan of care with Dr. Crocker Problems: Subjective 24 Hr Interval Summary Free Text/Dictation Reports pain controlled at this time. Still has some nausea. Family at bedside per Exam/Review of Systems Vital Signs Vitals Vital Signs Date Time Temp Pulse Resp B/P Pulse Ox O2 Delivery O2 Flow Rate FiO2 06/01/17 08:10 98.0 87 18 124/64 98 05/31/17 13:38 Room Air Intake and Output 05/31/17 05/31/17 06/01/17 15:00 23:00 07:00 Intake Total 1050 ml 787 ml Balance 1050 ml 787 ml Exam Constitutional: alert, oriented Head: normocephalic Respiratory: normal air movement Gastrointestinal: non-tender, soft Musculoskeletal: No nl gait and stance Neurological: NURSING SURGICAL SERVICES DIRECTOR II-XII intact, nl mental status, nl speech Skin: other (Noted with Fatima portion under right breast with darkish discoloration) Results Result Diagram: 06/01/17 0440 06/01/17 0440 Results 24 hrs Laboratory Tests Test 05/31/17 14:30 06/01/17 04:40 Hepatitis B Surface Antigen NEGATIVE Hepatitis B Core Total Antibody NEGATIVE Hepatitis C Antibody NEGATIVE White Blood Count 8.4 Red Blood Count 4.51 Hemoglobin 12.4 Hematocrit 37.4 Mean Corpuscular Volume 82.9 Mean Corpuscular Hemoglobin 27.5 L Mean Corpuscular Hemoglobin Concent 33.2 Red Cell Distribution Width 13.8 Platelet Count 239 Mean Platelet Volume 8.9 Neutrophils % 76.1 Lymphocytes % 19.1 Monocytes % 3.9 Eosinophils % 0.0 Basophils % 0.2 Nucleated Red Blood Cells % 0.0 Neutrophils # 6.4 Lymphocytes # 1.6 Monocytes # 0.3 Eosinophils # 0.0 Basophils # 0.0 Nucleated Red Blood Cells # 0.0 Sodium Level 141 Potassium Level 4.5 Chloride Level 99 Carbon Dioxide Level 27 Anion Gap 20 H Blood Urea Nitrogen 18 Creatinine 0.79 Glucose Level 174 Calcium Level 9.7 Medications Medications Current Medications Ondansetron HCl (Zofran Inj) 4 mg Q6H PRN IV NAUSEA AND/OR VOMITING Last administered on 06/01/17 10:13; Admin Dose 4 MG; Start 05/30/17 at 06:00 Acetaminophen (Tylenol Tab) 650 mg Q6H PRN PO PAIN LEVEL 1-3 OR FEVER; Start at 06:00 Docusate Sodium (Colace) 100 mg Q12H PO Last administered on 06/01/17 05:50; Admin Dose 100 MG; Start 05/30/17 at 06:00 Bisacodyl (Dulcolax) 5 mg DAILY PO Last administered on 05/31/17 08:23; Admin Dose 5 MG; Start 05/30/17 at 09:00 Pantoprazole (Protonix Iv) 40 mg DAILY@06 IV Last administered on 06/01/17 05: 50; Admin Dose 40 MG; Start 05/30/17 at 06:00 Enoxaparin Sodium (Lovenox) 40 mg DAILY SC Last administered on 06/01/17 10:09 ; Admin Dose 40 MG; Start 05/30/17 at 09:00 Alprazolam (Xanax) 0.25 mg Q8H PRN PO ANXIETY Last administered on 05/30/17 14 :46; Admin Dose 0.25 MG; Start 05/30/17 at 13:00 Hydromorphone HCl (Dilaudid DIRECTOR METABOLISM) 0.2 MG/HR CONTINUOUS R... Q4PCA IV Last administered on 05/31/17 10:15; Admin Dose 6 MG; Start 05/31/17 at 08:30 Dexamethasone 6 mg 6 mg BID IV Last administered on 06/01/17 10:14; Admin Dose 6 MG; Start 05/31/17 at 09:00 Potassium Chloride/Dextrose/ Sod Cl (D5-1/2ns + KCl 20 Meq) 1,000 ml @ 75 mls/ hr [id number] IV Last administered on 06/01/17 02:26; Admin Dose 75 MLS/HR; Start 05/31/17 at 11:00 Metoprolol Succinate (Toprol Xl) 25 mg DAILY PO Last administered on 06/01/17 10:10; Admin Dose 25 MG; Start 05/31/17 at 11:00 Metoclopramide HCl (Reglan) 5 mg Q6H PRN IV nausea Last administered on 20:25; Admin Dose 5 MG; Start 05/31/17 at 16:00 SEAN CXO Jun 01, 2017 14:32
[2017-06-01] MEDS: HYDROmorphONE 0.2 MG/ML PCA IV SCH (15:21)
--- NOTE | 2017-06-01 15:23 | RADRPT ---
PROCEDURE: Whole body bone scan study CLINICAL INDICATION: 61 -year-old patient with breast cancer, for evaluation for skeletal metastas es. TECHNIQUE: Following the intravenous injection of 22.1 mCi of Tc-99m MDP, whole body anterior and posterior planar images were obtained along with spot views of the chest, abdomen and pelvis. COMPARISON: No prior bone scans are available for comparison. CT scan of the chest dated May 31, 2017, CT scan of the abdomen and pelvis dated May 30, 2017. FINDINGS: Multiple abnormal focal areas of intensely increased tracer activity are seen in the calvarium, ster num, spine, rib cages bilaterally, both shoulders, left proximal to mid humerus, right distal humeru s, pelvic bones bilaterally, both hips, left femoral head/neck and left mid to distal femur. No other definite abnormal areas of increased activity or asymmetries are visualized in the study an d distribution of radionuclide is homogeneous in the skull, spine, rib cages, sternum, pelvis and vi sualized portions of the upper and lower extremities. Of incidental note, there is no evidence of mass abnormalities of the kidneys. IMPRESSION: Multiple abnormal focal areas of increased radiotracer activity in the axial and appendicular skelet on, as described above, consistent with multiple skeletal metastases. RPTAT: HH .Jessica Guevara MD, Date Time Electronically viewed and signed by .Jessica Guevara MD, MD on 06/01/2017 15:23 .L/
[2017-06-01 15:27] VITALS: BP 134/64; RESP 18
--- NOTE | 2017-06-01 16:48 | CONS ---
Date/Time of Note Date/Time of Note DATE: 06/01/17 TIME: 16:43 Assessment/Plan Assessment/Plan Chief Complaint/Hosp Course 61 yo with L breast mass with widespread disease on CT scan which demonstrates subcutaneous stranding within the right breast with a deep fluid collection measuring 4.7 x 1.2 cm , as well as diffuse sclerotic mets, mild pathologic compression of C7, T2, T4, T8 and T10 vertebral bodies as well as a prominent R axillary LN #Breast mass -this is now confirmed as breast cancer. immunohistochemistry stains are pending which will help determine what treatment is to be given. will talk to patient about the diagnosis tomorrow #Back Pain - secondary to T spine compression fracture -pt will likely need XRT to spine once a diagnosis has been made -pt currently on SALON/SPA MANAGER but she states she is very nauseas from this. will speak with palliative care regarding transitioning to an oral regimen #Bone Mets -once a diagnosis has been established, will start bisphosphonate therapy. can give Zometa tomorrow Problems: Consultation Date/Type/Reason Admit Date/Time May 30, 2017 at 05:17 Initial Consult Date 05/31/17 Type of Consultation: Oncology Reason for Consultation metastatic breast cancer Referring Provider: KE GONZALEZ 24 HR Interval Summary Free Text/Dictation pt tolerated bx well. waiting for results of biopsy. states the dilaudid personnel research psychologist is too strong for her. Exam/Review of Systems Vital Signs Vitals Vital Signs Date Time Temp Pulse Resp B/P Pulse Ox O2 Delivery O2 Flow Rate FiO2 06/01/17 15:27 98.1 77 18 134/64 97 05/31/17 13:38 Room Air Intake and Output 05/31/17 05/31/17 06/01/17 15:00 23:00 07:00 Intake Total 1050 ml 787 ml Balance 1050 ml 787 ml Exam Constitutional: alert, frail, oriented Psych: anxiety, no complaints Head: normocephalic Eyes: nl conjunctiva ENMT: nl external ears & nose Neck: non-tender, supple Respiratory: clear to auscultation, normal air movement Cardiovascular: regular rate and rhythm Gastrointestinal: soft Musculoskeletal: nl extremities to inspection, nl gait and stance Results Result Diagram: 06/01/17 0440 06/01/17 0440 Results 24 hrs Laboratory Tests Test 06/01/17 04:40 White Blood Count 8.4 Red Blood Count 4.51 Hemoglobin 12.4 Hematocrit 37.4 Mean Corpuscular Volume 82.9 Mean Corpuscular Hemoglobin 27.5 L Mean Corpuscular Hemoglobin Concent 33.2 Red Cell Distribution Width 13.8 Platelet Count 239 Mean Platelet Volume 8.9 Neutrophils % 76.1 Lymphocytes % 19.1 Monocytes % 3.9 Eosinophils % 0.0 Basophils % 0.2 Nucleated Red Blood Cells % 0.0 Neutrophils # 6.4 Lymphocytes # 1.6 Monocytes # 0.3 Eosinophils # 0.0 Basophils # 0.0 Nucleated Red Blood Cells # 0.0 Sodium Level 141 Potassium Level 4.5 Chloride Level 99 Carbon Dioxide Level 27 Anion Gap 20 H Blood Urea Nitrogen 18 Creatinine 0.79 Glucose Level 174 Calcium Level 9.7 Medications Medications Current Medications Ondansetron HCl (Zofran Inj) 4 mg Q6H PRN IV NAUSEA AND/OR VOMITING Last administered on 06/01/17 10:13; Admin Dose 4 MG; Start 05/30/17 at 06:00 Acetaminophen (Tylenol Tab) 650 mg Q6H PRN PO PAIN LEVEL 1-3 OR FEVER; Start at 06:00 Docusate Sodium (Colace) 100 mg Q12H PO Last administered on 06/01/17 05:50; Admin Dose 100 MG; Start 05/30/17 at 06:00 Bisacodyl (Dulcolax) 5 mg DAILY PO Last administered on 05/31/17 08:23; Admin Dose 5 MG; Start 05/30/17 at 09:00 Pantoprazole (Protonix Iv) 40 mg DAILY@06 IV Last administered on 06/01/17 05: 50; Admin Dose 40 MG; Start 05/30/17 at 06:00 Enoxaparin Sodium (Lovenox) 40 mg DAILY SC Last administered on 06/01/17 10:09 ; Admin Dose 40 MG; Start 05/30/17 at 09:00 Alprazolam (Xanax) 0.25 mg Q8H PRN PO ANXIETY Last administered on 05/30/17 14 :46; Admin Dose 0.25 MG; Start 05/30/17 at 13:00 Hydromorphone HCl (Dilaudid SALON/SPA MANAGER) 0.2 MG/HR CONTINUOUS R... Q4PCA IV Last administered on 06/01/17 15:21; Admin Dose 6 MG; Start 05/31/17 at 08:30 Dexamethasone 6 mg 6 mg BID IV Last administered on 06/01/17 10:14; Admin Dose 6 MG; Start 05/31/17 at 09:00 Potassium Chloride/Dextrose/ Sod Cl (D5-1/2ns + KCl 20 Meq) 1,000 ml @ 75 mls/ hr [id number] IV Last administered on 06/01/17 02:26; Admin Dose 75 MLS/HR; Start 05/31/17 at 11:00 Metoprolol Succinate (Toprol Xl) 25 mg DAILY PO Last administered on 06/01/17 10:10; Admin Dose 25 MG; Start 05/31/17 at 11:00 Metoclopramide HCl (Reglan) 5 mg Q6H PRN IV nausea Last administered on 20:25; Admin Dose 5 MG; Start 05/31/17 at 16:00 ZELDA ASHTON M.D. Jun 01, 2017 16:48
[2017-06-01 20:17] VITALS: BP 136/63; RESP 20
[2017-06-02 02:20] VITALS: BP 134/67; RESP 19
[2017-06-02] MEDS: D5W-0.45 NACL + KCL 20 MEQ 1,000 ML IV SCH ×3 (03:00→21:47)
[2017-06-02] MEDS: PANTOPRAZOLE 40 MG INJ IV SCH (05:29)
[2017-06-02] MEDS: DOCUSATE SODIUM 100 MG CAP PO SCH ×2 (05:31→18:55)
[2017-06-02 05:35] LABS: BASOPHILS % 0.1 % (0.0-2.0); HEMATOCRIT 37.9 % (37.0-47.0); HEMOGLOBIN 12.5 g/dl (12.0-16.0); LYMPHOCYTES # 1.1 10^3/ul (0.8-2.9); LYMPHOCYTES % 8.2 % (15.0-51.0); MEAN CORPUSCULAR HEMOGLOBIN 27.5 pg (29.0-33.0); MEAN CORPUSCULAR VOLUME 83.5 fl (82.0-101.0); MEAN PLATELET VOLUME 9.1 fl (7.4-10.4); MONOCYTE # 0.5 10^3/ul (0.3-0.9); MONOCYTES % 3.3 % (0.0-11.0); NEUTROPHILS % 87.7 % (39.0-77.0); PLATELET COUNT 262 10^3/UL (140-415); RED BLOOD COUNT 4.54 10^6/ul (4.20-5.40); WHITE BLOOD COUNT 13.7 10^3/ul (4.8-10.8)
[2017-06-02 06:12] LABS: CALCIUM 9.4 mg/dl (8.4-10.2); CREATININE 0.72 mg/dl (0.44-1.00); POTASSIUM 5.1 mmol/L (3.5-5.1)
[2017-06-02 07:58] VITALS: BP 133/67; RESP 16
[2017-06-02] MEDS: BISACODYL (EC) 5 MG TAB PO SCH (08:34)
[2017-06-02] MEDS: DEXAMETHASONE 10 MG/ML 1 ML INJ IV SCH (08:34)
[2017-06-02] MEDS: METOPROLOL (XL) 25 MG TAB PO SCH (08:35)
[2017-06-02] MEDS: ENOXAPARIN 40 MG/0.4 ML SYG SC SCH (08:50)
--- NOTE | 2017-06-02 08:50 | CONS ---
Date/Time of Note Date/Time of Note DATE: 06/02/17 TIME: 08:48 Assessment/Plan Assessment/Plan Chief Complaint/Hosp Course 61-year-old female who presented to emergency room [facility] in pain, primarily lumbosacral spine. Apparently this is been going on for a couple of months prior to his presentation, increase in severity associated with profound weight loss. Pain is described as 10/10 with minimal movement, throbbing pain that does not radiate into her chest wall.. Pain is interfering with her overall physical function and sleeping patterns. She is only received morphine up until this time but has not ask for as needed dosings for unclear reasons. When she does take morphine as needed she has some alleviation of pain but only moderately. Her son states that she is having periodic bouts of nausea but without vomiting. Patient has no past medical history of opioid use abuse smoking or alcohol consumption. Presumptive diagnosis is metastatic breast cancer with metastases to lumbar sacral spine, biopsy pending. MPRESSION: Subcutaneous stranding within the right breast with a deep fluid collection measuring 4.7 x 1.2 cm. Clinically correlate for neoplastic disease. Diffuse sclerotic metastases throughout the bony skeleton. Mild pathologic compression deformities of C7, T2, T4, T8 and T10 vertebral bodies. Staghorn calculus within the lower pole of the left kidney with cortical scarring. Prominent right axillary lymph node. Biapical pulmonary scarring. Problems: Additional Assessment/Plan More comfortable today, denies side effects of opioids. Denies n,v, chest pains , sob pruritus... using the INFANT NANNY appropriately. Start to transition to orals. Consultation Date/Type/Reason Admit Date/Time May 30, 2017 at 05:17 Initial Consult Date 05/31/17 Type of Consultation: Pain Management Referring Provider: KE GONZALEZ Exam/Review of Systems Vital Signs Vitals Vital Signs Date Time Temp Pulse Resp B/P Pulse Ox O2 Delivery O2 Flow Rate FiO2 06/02/17 07:58 98.2 77 16 133/67 97 05/31/17 13:38 Room Air Intake and Output 06/01/17 06/01/17 06/02/17 15:00 23:00 07:00 Intake Total 1000 ml 1200 ml Balance 1000 ml 1200 ml Exam Constitutional: alert, oriented, well developed Neurological: FRUIT LOADER MACHINE OPERATOR II-XII intact, nl mental status, nl speech, nl strength Results Result Diagram: 06/02/176 06/02/176 Results 24 hrs Laboratory Tests Test 06/02/17 04:46 White Blood Count 13.7 #H Red Blood Count 4.54 Hemoglobin 12.5 Hematocrit 37.9 Mean Corpuscular Volume 83.5 Mean Corpuscular Hemoglobin 27.5 L Mean Corpuscular Hemoglobin Concent 33.0 Red Cell Distribution Width 14.0 Platelet Count 262 Mean Platelet Volume 9.1 Neutrophils % 87.7 H Lymphocytes % 8.2 L Monocytes % 3.3 Eosinophils % 0.0 Basophils % 0.1 Nucleated Red Blood Cells % 0.0 Neutrophils # 12.0 H Lymphocytes # 1.1 Monocytes # 0.5 Eosinophils # 0.0 Basophils # 0.0 Nucleated Red Blood Cells # 0.0 Sodium Level 142 Potassium Level 5.1 Chloride Level 97 Carbon Dioxide Level 28 Anion Gap 22 H Blood Urea Nitrogen 16 Creatinine 0.72 Glucose Level 138 Calcium Level 9.4 Medications Medications Current Medications Ondansetron HCl (Zofran Inj) 4 mg Q6H PRN IV NAUSEA AND/OR VOMITING Last administered on 06/01/17 10:13; Admin Dose 4 MG; Start 05/30/17 at 06:00 Acetaminophen (Tylenol Tab) 650 mg Q6H PRN PO PAIN LEVEL 1-3 OR FEVER; Start at 06:00 Docusate Sodium (Colace) 100 mg Q12H PO Last administered on 06/02/17 05:31; Admin Dose 100 MG; Start 05/30/17 at 06:00 Bisacodyl (Dulcolax) 5 mg DAILY PO Last administered on 05/31/17 08:23; Admin Dose 5 MG; Start 05/30/17 at 09:00 Pantoprazole (Protonix Iv) 40 mg DAILY@06 IV Last administered on 06/02/17 05: 29; Admin Dose 40 MG; Start 05/30/17 at 06:00 Enoxaparin Sodium (Lovenox) 40 mg DAILY SC Last administered on 06/01/17 10:09 ; Admin Dose 40 MG; Start 05/30/17 at 09:00 Alprazolam (Xanax) 0.25 mg Q8H PRN PO ANXIETY Last administered on 05/30/17 14 :46; Admin Dose 0.25 MG; Start 05/30/17 at 13:00 Hydromorphone HCl (Dilaudid INFANT NANNY) 0.2 MG/HR CONTINUOUS R... Q4PCA IV Last administered on 06/01/17 15:21; Admin Dose 6 MG; Start 05/31/17 at 08:30 Dexamethasone 6 mg 6 mg BID IV Last administered on 06/01/17 20:35; Admin Dose 6 MG; Start 05/31/17 at 09:00 Potassium Chloride/Dextrose/ Sod Cl (D5-1/2ns + KCl 20 Meq) 1,000 ml @ 75 mls/ hr [id number] IV Last administered on 06/02/17 05:28; Admin Dose 75 MLS/HR; Start 05/31/17 at 11:00 Metoprolol Succinate (Toprol Xl) 25 mg DAILY PO Last administered on 06/01/17 10:10; Admin Dose 25 MG; Start 05/31/17 at 11:00 Metoclopramide HCl (Reglan) 5 mg Q6H PRN IV nausea Last administered on 20:25; Admin Dose 5 MG; Start 05/31/17 at 16:00 HILLARY GALE Jun 02, 2017 08:49
[2017-06-02] MEDS: DEXAMETHASONE 10 MG/ML 1 ML INJ PO SCH ×2 (09:00→20:44)
[2017-06-02] MEDS ORDERED: KETOROLAC 30 MG INJ IV PRN (12:30)
[2017-06-02] MEDS: HYDROmorphONE 2 MG TAB PO PRN ×3 (13:03→23:34)
--- NOTE | 2017-06-02 14:46 | PN ---
Date/Time of Note Date/Time of Note DATE: 06/02/17 TIME: 14:43 Assessment/Plan VTE Prophylaxis VTE Prophylaxis Intervention: LMWH Lines/Catheters IV Catheter Type (from [facility]): Peripheral IV Urinary Cath still in place: No Assessment/Plan Chief Complaint/Hosp Course Assessment and plan 1.Right breast mass. patient status post right breast biopsy. Continue with oncologist recommendations. Patient with noted breast biopsy showing invasive ductal carcinoma moderately differentiated. 2. Spinal lesion with pathologic compression fracture. With likely metastasis. Continue with pain management physician regimen. 3. Osseous metastasis involving bilateral calvarium and partially visualized upper cervical spine per brain MRI. \. Follow-up with oncologist r recommendations. Continue the analgesic 3. Transaminitis. Etiology unclear. Hepatitis panel is negative. Did have CT scan of abdomen that did show a 6 mm hypodense lesion within the inferior right lobe of the liver which is too small to further characterize per report. Is downward trending. Will monitor for now. 4. Anxiety. Will provide with anxiolytics as needed. Disposition and plan: Plan for outpatient follow-up with oncologist. Patient transitioned to oral analgesics. Will monitor for clinical efficacy. Anticipate discharge within the next 24 hours if medically stable and cleared by consultants Discussed plan of care with Dr. Crocker Problems: Subjective 24 Hr Interval Summary Free Text/Dictation Comfortable at present. Family at bedside. No reports of nausea Exam/Review of Systems Vital Signs Vitals Vital Signs Date Time Temp Pulse Resp B/P Pulse Ox O2 Delivery O2 Flow Rate FiO2 06/02/17 09:10 16 06/02/17 07:58 98.2 77 133/67 97 05/31/17 13:38 Room Air Intake and Output 06/01/17 06/01/17 06/02/17 15:00 23:00 07:00 Intake Total 1000 ml 1200 ml Balance 1000 ml 1200 ml Exam Constitutional: alert, oriented Head: normocephalic Respiratory: normal air movement Gastrointestinal: non-tender, soft Musculoskeletal: No nl gait and stance Neurological: DISCOVERY MANAGER II-XII intact, nl mental status, nl speech Results Result Diagram: 06/02/17 0446 06/02/17 0446 Results 24 hrs Laboratory Tests Test 06/02/17 04:46 06/02/17 09:22 White Blood Count 13.7 #H Red Blood Count 4.54 Hemoglobin 12.5 Hematocrit 37.9 Mean Corpuscular Volume 83.5 Mean Corpuscular Hemoglobin 27.5 L Mean Corpuscular Hemoglobin Concent 33.0 Red Cell Distribution Width 14.0 Platelet Count 262 Mean Platelet Volume 9.1 Neutrophils % 87.7 H Lymphocytes % 8.2 L Monocytes % 3.3 Eosinophils % 0.0 Basophils % 0.1 Nucleated Red Blood Cells % 0.0 Neutrophils # 12.0 H Lymphocytes # 1.1 Monocytes # 0.5 Eosinophils # 0.0 Basophils # 0.0 Nucleated Red Blood Cells # 0.0 Sodium Level 142 Potassium Level 5.1 Chloride Level 97 Carbon Dioxide Level 28 Anion Gap 22 H Blood Urea Nitrogen 16 Creatinine 0.72 Glucose Level 138 Calcium Level 9.4 Lab Scanned Report REFERENCE LAB Medications Medications Current Medications Ondansetron HCl (Zofran Inj) 4 mg Q6H PRN IV NAUSEA AND/OR VOMITING Last administered on 06/01/17 10:13; Admin Dose 4 MG; Start 05/30/17 at 06:00 Acetaminophen (Tylenol Tab) 650 mg Q6H PRN PO PAIN LEVEL 1-3 OR FEVER; Start at 06:00 Docusate Sodium (Colace) 100 mg Q12H PO Last administered on 06/02/17 05:31; Admin Dose 100 MG; Start 05/30/17 at 06:00 Bisacodyl (Dulcolax) 5 mg DAILY PO Last administered on 06/02/17 08:34; Admin Dose 5 MG; Start 05/30/17 at 09:00 Pantoprazole (Protonix Iv) 40 mg DAILY@06 IV Last administered on 06/02/17 05: 29; Admin Dose 40 MG; Start 05/30/17 at 06:00 Enoxaparin Sodium (Lovenox) 40 mg DAILY SC Last administered on 06/02/17 08:50 ; Admin Dose 40 MG; Start 05/30/17 at 09:00 Alprazolam 0.25 mg 0.25 mg Q8H PRN PO ANXIETY Last administered on 05/30/17 14 :46; Admin Dose 0.25 MG; Start 05/30/17 at 13:00 Potassium Chloride/Dextrose/ Sod Cl (D5-1/2ns + KCl 20 Meq) 1,000 ml @ 75 mls/ hr [id number] IV Last administered on 06/02/17 05:28; Admin Dose 75 MLS/HR; Start 05/31/17 at 11:00 Metoprolol Succinate (Toprol Xl) 25 mg DAILY PO Last administered on 06/02/17 08:35; Admin Dose 25 MG; Start 05/31/17 at 11:00 Metoclopramide HCl (Reglan) 5 mg Q6H PRN IV nausea Last administered on 20:25; Admin Dose 5 MG; Start 05/31/17 at 16:00 Dexamethasone (Decadron) 6 mg BID PO ; Start 06/02/17 at 09:00 Hydromorphone HCl (Dilaudid) 2 mg Q3H PRN PO PAIN Last administered on 13:03; Admin Dose 2 MG; Start 06/02/17 at 09:00 Ketorolac Tromethamine (Toradol) 30 mg Q6H PRN IV PAIN; Start 06/02/17 at 12:30 ; Stop 06/05/17 at 12:29 SEAN COX Jun 02, 2017 14:46
[2017-06-02 15:19] VITALS: BP 112/78; RESP 14
--- NOTE | 2017-06-02 17:42 | RADRPT ---
PROCEDURE: MRI Cervical spine without and with contrast CLINICAL INDICATION: Metastatic breast cancer TECHNIQUE: An MRI of the cervical spine was performed utilizing the following sequences: Sagittal and axial T1 weighted, sagittal and axial T2 weighted, axial GRE, and sagittal STIR . Additional po st contrast sequences were acquired. 10 cc Magnevist was administered intravenously without reported complication. COMPARISON: Correlation nuclear medicine bone scan yesterday FINDINGS: There is a normal cervical lordosis. Diffuse heterogeneous marrow replacing lesions are seen throug hout the cervical spine. The cervical cord demonstrates normal signal intensity. No evidence of cor d edema or cord compression. C2-3: The disk is preserved height. No significant disk protrusion, spinal canal or foraminal sten osis. C3-4: The disk is preserved height. No significant disk protrusion, spinal canal or foraminal ariel nosis. C4-5: Grade 1 retrolisthesis. 3 mm central disk protrusion narrows the ventral thecal sac with mild spinal canal narrowing. No significant foraminal narrowing. C5-6: Minimal disk bulge without significant spinal canal or foraminal narrowing. Right central dis k annular fissure. C6-7: Minimal disk bulge without significant spinal canal or foraminal narrowing. Right central di sk annular fissure. C7-T1: The disk is preserved height. No significant disk protrusion, spinal canal or foraminal ariel nosis. No abnormal intraspinal mass. IMPRESSION: Diffuse cervical osseous metastasis. No enhancing intraspinal mass identified. No evidence of cord edema or cord compression. Degenerative changes are detailed in the findings. RPTAT: AA .Camilo Nicolas MD, Date Time Electronically viewed and signed by .Camilo Nicolas MD, MD on 06/02/2017 17:42 .T/
--- NOTE | 2017-06-02 17:48 | RADRPT ---
PROCEDURE: MRI Thoracic spine with and without contrast CLINICAL INDICATION: Metastasis TECHNIQUE: An MRI of the thoracic spine was performed on a high resolution MRI scanner utilizing t he following sequences: Sagittal and axial T1 weighted, sagittal and axial T2 weighted, and sagitta l T2 weighted with fat saturation . Additional post contrast sequences were acquired after the intr avenous administration of 10 cc of Magnevist. There were no reported complications. COMPARISON: Correlation nuclear medicine bone scan yesterday FINDINGS: Normal alignment. Heterogeneous marrow replacing lesions are seen throughout the thoracic spine wit h mild pathologic compression fractures of T4, T6, and T10. There is a moderate pathologic compress ion fractures of T8. Additional fractures through T7 and L1 are visualized without significant vertebral height loss. The re is also marrow replacing lesions partially imaged involving the bilateral ribs and upper lumbar s pine. The thoracic cord demonstrates normal contour and signal intensity. No significant disk protrusion, spinal canal or foraminal stenosis. No enhancing intraspinal mass identified. IMPRESSION: Diffuse thoracic vertebral osseous metastasis with partially imaged involvement of bilateral ribs an d lumbar spine. Mild pathologic compression fractures of T4, T6, and T10. There is a moderate pathologic compression fractures of T8. Additional fractures through T7 and L1 are visualized without significant vertebral height loss. No evidence of thoracic vertebral bony retropulsion into the spinal canal. No evidence of cord edema or cord compression. No enhancing intraspinal mass identified. RPTAT: AA .Camilo Nicolas MD, MD Date Time Electronically viewed and signed by .Camilo Nicolas MD, on 06/02/2017 17:48 .T/
[2017-06-02 19:38] VITALS: BP 145/68; RESP 17
--- NOTE | 2017-06-02 21:38 | CONS ---
Date/Time of Note Date/Time of Note DATE: 06/02/17 TIME: 21:29 Assessment/Plan Assessment/Plan Chief Complaint/Hosp Course 61 yo with L breast mass with widespread disease on CT scan which demonstrates subcutaneous stranding within the right breast with a deep fluid collection measuring 4.7 x 1.2 cm , as well as diffuse sclerotic mets, mild pathologic compression of C7, T2, T4, T8 and T10 vertebral bodies as well as a prominent R axillary LN. Extensive family discussion was had with son and patient who understand she has STAGE IV disease. They understand she may need chemotherapy vs targeted therapy but these decisions will made once the IHC stains have come back. #Breast mass -this is now confirmed as breast cancer. immunohistochemistry stains are pending which will help determine what treatment is to be given. 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 will speak with palliative care regarding transitioning to an oral regimen #Bone Mets -once a diagnosis has been established, will start bisphosphonate therapy. can give Zometa tomorrow Problems: (1) Pathologic compression fracture of spine Status: Acute (2) Primary cancer of right breast with metastasis to other site Status: Acute Consultation Date/Type/Reason Admit Date/Time May 30, 2017 at 05:17 Initial Consult Date 05/31/17 Type of Consultation: Oncology Reason for Consultation metastatic breast cancer Referring Provider: KE GONZALEZ 24 HR Interval Summary Free Text/Dictation pt states pain medication is causing nausea. however states pain is under better control. pt and son were told she is confirmed to have metastatic breast cancer. Exam/Review of Systems Vital Signs Vitals Vital Signs Date Time Temp Pulse Resp B/P Pulse Ox O2 Delivery O2 Flow Rate FiO2 06/02/17 19:38 97.9 67 17 145/68 98 05/31/17 13:38 Room Air Intake and Output 06/01/17 06/01/17 06/02/17 15:00 23:00 07:00 Intake Total 1000 ml 1200 ml Balance 1000 ml 1200 ml Exam Constitutional: alert, oriented Psych: anxiety, depression Head: normocephalic Eyes: nl conjunctiva ENMT: nl external ears & nose Neck: supple Respiratory: clear to auscultation Cardiovascular: regular rate and rhythm Gastrointestinal: soft Genitourinary - Female: nl adnexae Musculoskeletal: nl extremities to inspection Extremities: normal pulses Neurological: DEPUTY ADMINISTRATOR II-XII intact Additional Comments L Breast with 4cm breast mass Results Result Diagram: 06/02/17 0446 06/02/17 0446 Results 24 hrs Laboratory Tests Test 06/02/17 04:46 06/02/17 09:22 White Blood Count 13.7 #H Red Blood Count 4.54 Hemoglobin 12.5 Hematocrit 37.9 Mean Corpuscular Volume 83.5 Mean Corpuscular Hemoglobin 27.5 L Mean Corpuscular Hemoglobin Concent 33.0 Red Cell Distribution Width 14.0 Platelet Count 262 Mean Platelet Volume 9.1 Neutrophils % 87.7 H Lymphocytes % 8.2 L Monocytes % 3.3 Eosinophils % 0.0 Basophils % 0.1 Nucleated Red Blood Cells % 0.0 Neutrophils # 12.0 H Lymphocytes # 1.1 Monocytes # 0.5 Eosinophils # 0.0 Basophils # 0.0 Nucleated Red Blood Cells # 0.0 Sodium Level 142 Potassium Level 5.1 Chloride Level 97 Carbon Dioxide Level 28 Anion Gap 22 H Blood Urea Nitrogen 16 Creatinine 0.72 Glucose Level 138 Calcium Level 9.4 Lab Scanned Report REFERENCE LAB Medications Medications Current Medications Ondansetron HCl (Zofran Inj) 4 mg Q6H PRN IV NAUSEA AND/OR VOMITING Last administered on 06/01/17 10:13; Admin Dose 4 MG; Start 05/30/17 at 06:00 Acetaminophen (Tylenol Tab) 650 mg Q6H PRN PO PAIN LEVEL 1-3 OR FEVER; Start at 06:00 Docusate Sodium (Colace) 100 mg Q12H PO Last administered on 06/02/17 18:55; Admin Dose 100 MG; Start 05/30/17 at 06:00 Bisacodyl (Dulcolax) 5 mg DAILY PO Last administered on 06/02/17 08:34; Admin Dose 5 MG; Start 05/30/17 at 09:00 Pantoprazole (Protonix Iv) 40 mg DAILY@06 IV Last administered on 06/02/17 05: 29; Admin Dose 40 MG; Start 05/30/17 at 06:00 Enoxaparin Sodium (Lovenox) 40 mg DAILY SC Last administered on 06/02/17 08:50 ; Admin Dose 40 MG; Start 05/30/17 at 09:00 Alprazolam 0.25 mg 0.25 mg Q8H PRN PO ANXIETY Last administered on 05/30/17 14 :46; Admin Dose 0.25 MG; Start 05/30/17 at 13:00 Potassium Chloride/Dextrose/ Sod Cl (D5-1/2ns + KCl 20 Meq) 1,000 ml @ 75 mls/ hr [id number] IV Last administered on 06/02/17 05:28; Admin Dose 75 MLS/HR; Start 05/31/17 at 11:00 Metoprolol Succinate (Toprol Xl) 25 mg DAILY PO Last administered on 06/02/17 08:35; Admin Dose 25 MG; Start 05/31/17 at 11:00 Metoclopramide HCl (Reglan) 5 mg Q6H PRN IV nausea Last administered on 20:25; Admin Dose 5 MG; Start 05/31/17 at 16:00 Dexamethasone (Decadron) 6 mg BID PO Last administered on 06/02/17 20:44; Admin Dose 6 MG; Start 06/02/17 at 09:00 Hydromorphone HCl (Dilaudid) 2 mg Q3H PRN PO PAIN Last administered on 18:56; Admin Dose 2 MG; Start 06/02/17 at 09:00 Ketorolac Tromethamine (Toradol) 30 mg Q6H PRN IV PAIN; Start 06/02/17 at 12:30 ; Stop 06/05/17 at 12:29 ZELDA ASHTON M.D. Jun 02, 2017 21:38
[2017-06-03 02:55] VITALS: BP 119/60; RESP 18
[2017-06-03] MEDS: DOCUSATE SODIUM 100 MG CAP PO SCH ×2 (05:26→18:28)
[2017-06-03] MEDS: HYDROmorphONE 2 MG TAB PO PRN ×4 (05:27→21:41)
[2017-06-03] MEDS: PANTOPRAZOLE 40 MG INJ IV SCH (05:27)
[2017-06-03 05:32] LABS: BASOPHILS % 0.1 % (0.0-2.0); HEMATOCRIT 37.5 % (37.0-47.0); LYMPHOCYTES # 1.5 10^3/ul (0.8-2.9); LYMPHOCYTES % 11.2 % (15.0-51.0); MEAN CORPUSCULAR HEMOGLOBIN 26.8 pg (29.0-33.0); MEAN CORPUSCULAR VOLUME 83.7 fl (82.0-101.0); MEAN PLATELET VOLUME 9.3 fl (7.4-10.4); MONOCYTE # 0.5 10^3/ul (0.3-0.9); MONOCYTES % 3.9 % (0.0-11.0); NEUTROPHIL # 10.9 10^3/ul (1.6-7.5); NEUTROPHILS % 83.5 % (39.0-77.0); PLATELET COUNT 266 10^3/UL (140-415); RED BLOOD COUNT 4.48 10^6/ul (4.20-5.40); RED CELL DISTRIBUTION WIDTH 14.3 % (11.5-14.5); WHITE BLOOD COUNT 13.1 10^3/ul (4.8-10.8)
[2017-06-03] MEDS: D5W-0.45 NACL + KCL 20 MEQ 1,000 ML IV SCH ×2 (05:40→19:00)
[2017-06-03 05:49] LABS: ALBUMIN 3.8 g/dl (3.3-4.9); BILIRUBIN,INDIRECT 0.1 mg/dl (0-1.1); BILIRUBIN,TOTAL 0.1 mg/dl (0.2-1.3); TOTAL PROTEIN 6.6 g/dl (6.1-8.1)
[2017-06-03 05:55] LABS: CALCIUM 8.9 mg/dl (8.4-10.2); CREATININE 0.71 mg/dl (0.44-1.00); POTASSIUM 4.8 mmol/L (3.5-5.1)
[2017-06-03 08:10] VITALS: BP 134/63; RESP 18
[2017-06-03] MEDS: DEXAMETHASONE 10 MG/ML 1 ML INJ PO SCH ×2 (09:00→09:11)
[2017-06-03] MEDS: BISACODYL (EC) 5 MG TAB PO SCH (09:11)
[2017-06-03] MEDS: METOPROLOL (XL) 25 MG TAB PO SCH (09:11)
[2017-06-03] MEDS: ENOXAPARIN 40 MG/0.4 ML SYG SC SCH (09:12)
[2017-06-03] MEDS: DEXAMETHASONE 2 MG TAB PO SCH ×3 (09:30→21:41)
[2017-06-03] MEDS ORDERED: DOCU-216 PO (11:41)
[2017-06-03] MEDS ORDERED: METO25TA7 PO (11:41)
[2017-06-03] MEDS ORDERED: ALPR0.254 PO (11:41)
[2017-06-03] MEDS ORDERED: ONDA4TAB8 PO (11:41)
[2017-06-03] MEDS ORDERED: HYDR2TAB36 PO (11:41)
--- NOTE | 2017-06-03 11:44 | PDOCDIS ---
Discharge Instructions DIAGNOSIS Discharge Diagnosis 1. Breast Cancer 2. Bone metastasis 3. Pathologic spinal compression fracture CONDITION Patient Condition: Stable HOME CARE INSTRUCTIONS: Diet Instructions: Regular FOLLOW UP/APPOINTMENTS Follow-up Plan 1. Follow up with Dr. Sandra Guerra in one week 2. Follow up with Dr. Killian Banda in one week SEAN COX Jun 03, 2017 11:44
[2017-06-03] MEDS ORDERED: METHADONE 5 MG TAB PO SCH (14:30)
--- NOTE | 2017-06-03 14:32 | CONS ---
Date/Time of Note Date/Time of Note DATE: 06/03/17 TIME: 14:29 Assessment/Plan Assessment/Plan Chief Complaint/Hosp Course 61-year-old female who presented to emergency room [facility] in pain, primarily lumbosacral spine. Apparently this is been going on for a couple of months prior to his presentation, increase in severity associated with profound weight loss. Pain is described as 10/10 with minimal movement, throbbing pain that does not radiate into her chest wall.. Pain is interfering with her overall physical function and sleeping patterns. She is only received morphine up until this time but has not ask for as needed dosings for unclear reasons. When she does take morphine as needed she has some alleviation of pain but only moderately. Her son states that she is having periodic bouts of nausea but without vomiting. Patient has no past medical history of opioid use abuse smoking or alcohol consumption. Presumptive diagnosis is metastatic breast cancer with metastases to lumbar sacral spine, biopsy pending. MPRESSION: Subcutaneous stranding within the right breast with a deep fluid collection measuring 4.7 x 1.2 cm. Clinically correlate for neoplastic disease. Diffuse sclerotic metastases throughout the bony skeleton. Mild pathologic compression deformities of C7, T2, T4, T8 and T10 vertebral bodies. Staghorn calculus within the lower pole of the left kidney with cortical scarring. Prominent right axillary lymph node. Biapical pulmonary scarring. Problems: Additional Assessment/Plan She denies severe pain any longer. On close questioning with friends in the room she does admit she still having back pain in between dosings of Dilaudid currently scheduled at 2 mg every 3 hours. She has no side effects associated however she was nauseous for a short period of time she states that has resolved. Denies other systemic symptoms and she has had a bowel movement. I will begin very low-dose of methadone 2 mg every 8 hours with this combination I believe she will be much more comfortable. Consultation Date/Type/Reason Admit Date/Time May 30, 2017 at 05:17 Initial Consult Date 05/31/17 Type of Consultation: Pain management Referring Provider: KE GONZALEZ Exam/Review of Systems Vital Signs Vitals Vital Signs Date Time Temp Pulse Resp B/P Pulse Ox O2 Delivery O2 Flow Rate FiO2 06/03/17 08:10 98.0 72 18 134/63 98 05/31/17 13:38 Room Air Intake and Output 06/02/17 06/02/17 06/03/17 15:00 23:00 07:00 Intake Total 1575 ml 1162 ml Output Total 750 ml 1100 ml Balance 825 ml 62 ml Exam Constitutional: No alert, No distress, No frail, No non-verbal, No obese, No oriented, No other, No well developed Psych: anxiety Head: atraumatic, normocephalic 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, nl mental status, nl speech, nl strength Results Result Diagram: 06/03/1743206/03/17 0433 Results 24 hrs Laboratory Tests Test 06/03/17 04:33 White Blood Count 13.1 H Red Blood Count 4.48 Hemoglobin 12.0 Hematocrit 37.5 Mean Corpuscular Volume 83.7 Mean Corpuscular Hemoglobin 26.8 L Mean Corpuscular Hemoglobin Concent 32.0 Red Cell Distribution Width 14.3 Platelet Count 266 Mean Platelet Volume 9.3 Neutrophils % 83.5 H Lymphocytes % 11.2 L Monocytes % 3.9 Eosinophils % 0.0 Basophils % 0.1 Nucleated Red Blood Cells % 0.0 Neutrophils # 10.9 H Lymphocytes # 1.5 Monocytes # 0.5 Eosinophils # 0.0 Basophils # 0.0 Nucleated Red Blood Cells # 0.0 Sodium Level 140 Potassium Level 4.8 Chloride Level 102 Carbon Dioxide Level 27 Anion Gap 16 Blood Urea Nitrogen 16 Creatinine 0.71 Glucose Level 130 Calcium Level 8.9 Total Bilirubin 0.1 L Direct Bilirubin 0.00 Indirect Bilirubin 0.1 Aspartate Amino Transf (AST/SGOT) 68 H Alanine Aminotransferase (ALT/SGPT) 99 H Alkaline Phosphatase 119 Total Protein 6.6 Albumin 3.8 Medications Medications Current Medications Ondansetron HCl (Zofran Inj) 4 mg Q6H PRN IV NAUSEA AND/OR VOMITING Last administered on 06/01/17t 10:13; Admin Dose 4 MG; Start 05/30/17 at 06:00 Acetaminophen (Tylenol Tab) 650 mg Q6H PRN PO PAIN LEVEL 1-3 OR FEVER; Start at 06:00 Docusate Sodium (Colace) 100 mg Q12H PO Last administered on 06/03/17 05:26; Admin Dose 100 MG; Start 05/30/17 at 06:00 Bisacodyl (Dulcolax) 5 mg DAILY PO Last administered on 06/03/17 09:11; Admin Dose 5 MG; Start 05/30/17 at 09:00 Pantoprazole (Protonix Iv) 40 mg DAILY@06 IV Last administered on 06/03/17 05: 27; Admin Dose 40 MG; Start 05/30/17 at 06:00 Enoxaparin Sodium (Lovenox) 40 mg DAILY SC Last administered on 06/03/17 09:12 ; Admin Dose 40 MG; Start 05/30/17 at 09:00 Alprazolam 0.25 mg 0.25 mg Q8H PRN PO ANXIETY Last administered on 05/30/17 14 :46; Admin Dose 0.25 MG; Start 05/30/17 at 13:00 Potassium Chloride/Dextrose/ Sod Cl (D5-1/2ns + KCl 20 Meq) 1,000 ml @ 75 mls/ hr [id number] IV Last administered on 06/02/17 21:47; Admin Dose 75 MLS/HR; Start 05/31/17 at 11:00 Metoprolol Succinate (Toprol Xl) 25 mg DAILY PO Last administered on 06/03/17 09:11; Admin Dose 25 MG; Start 05/31/17 at 11:00 Metoclopramide HCl (Reglan) 5 mg Q6H PRN IV nausea Last administered on 20:25; Admin Dose 5 MG; Start 05/31/17 at 16:00 Hydromorphone HCl (Dilaudid) 2 mg Q3H PRN PO PAIN Last administered on 12:18; Admin Dose 2 MG; Start 06/02/17 at 09:00 Ketorolac Tromethamine (Toradol) 30 mg Q6H PRN IV PAIN; Start 06/02/17 at 12:30 ; Stop 06/05/17 at 12:29 Dexamethasone (Decadron) 6 mg BID PO Last administered on 06/03/17 12:18; Admin Dose 6 MG; Start 06/03/17 at 09:30 HILLARY GALE Jun 03, 2017 14:32
--- NOTE | 2017-06-03 15:13 | DS ---
Date/Time of Note Date/Time of Note DATE: 06/03/17 TIME: 15:05 Discharge Summary Admission/Discharge Info Admit Date/Time May 30, 2017 at 05:17 Discharge Date/Time Discharge Diagnosis 1. Breast Cancer 2. Bone metastasis 3. Pathologic spinal compression fracture Patient Condition: Stable Consults 1. Dr. Sandra Guerra 2. Dr. Nam De La Rosa Hx of Present Illness This is a 61-year-old female with no reported past medical history who came to [facility] due to reports of back pain. According to the patient has been having back pain for 1 month duration. She reported that she was carrying water and subsequently since then has been having worsening back pain making it harder for her to ambulate. She subsequently went to [facility]. She was also found to have a right breast mass with the patient that she has been having for 3 months duration. She reports that she had not had a checkup for biopsy in the past. She reports her last mammogram was 2 years ago which she reports was normal. She did have imaging done with abdominal pelvic ultrasound that did show her to have some cutaneous stranding within the right breast to the deep fluid collection measuring 4.7 x 1.2 cm suspect for neoplastic disease. On physical exam patient was seen with nurse patient noted with hardened right breast with darkish discoloration from bottom portion of right breast. Her back daily and lumbar CT scan that did show her to have probable widespread bony metastatic disease with minor end plate depressions at multiple levels of approximately 55% probable compression fracture of T10. She was also seen with some transaminitis however denies any abdominal pain. We will evaluate her for the aformentiond issues. Hospital Course This Is a 61-year-old female with no reported past medical history who came to [facility] due to reports of back pain and weakness. According to report patient was going to case water when she started have worse back pain. Subsequently thereafter she started to have difficulty with walking and worse pain. Patient also reported having a right breast mass for 3 months duration and had not had any check of her biopsy for this. Her last mammogram was done 2 years prior to admission which she reports was normal. She did have abdominal pelvic ultrasound done that did show her to have some cutaneous stranding within the right breast and deep fluid collection measuring 4.7 x 1.2 cm suspect for neoplastic disease. We did get surgeon as well as oncologist to follow. She did have further breast ultrasound done that did show right 6 o' clock position 40 mm circumscribed sonographic nodule with a mildly prominent 9 mm right axillary lymph node. She did have a breast biopsy on the right side that did show invasive ductal carcinoma moderately differentiated. Additionally she did have multiple bone imagings including cervical and thoracic and as well as a bone scan that did show her to have multiple abnormal focal areas consistent with skeletal metastasis. Patient also was seen with spinal compression fracture likely from her metastasis. We did continue with pain management as well as to physical therapy. During the course of stay we did get appropriate pain relief with analgesics. Pain management physician was also following. We did provide the patient with anxiolytics for anxiety. Patient was referred to oncologist for outpatient for further monitoring and care and treatment of her new malignancy. The plan of care was discussed with the patient and patient did verbalize her understanding. On the day of discharge patient was in stable condition Discussed plan of care with Dr. Crocker [facility] Active Scripts Docusate Sodium (Dok) 100 Mg Capsule, 100 MG PO Q12H Y for CONSTIPATION, #40 CAP Prov:REGLILIANERSEAN 06/03/17 Ondansetron Hcl* (Zofran*) 4 Mg Tablet, 4 MG PO Q6H Y for NAUSEA AND OR VOMITING , #30 TAB Prov:REGIDORSEAN 06/03/17 Metoprolol Succinate* (Toprol XL*) 25 Mg Tab.sr.24h, 25 MG PO DAILY for 30 Days Prov:REGIDOSEAN Pineda 06/03/17 Hydromorphone Hcl* (Dilaudid*) 2 Mg Tablet, 2 MG PO Q3H Y for PAIN, #50 TAB Prov:REGSEAN BURGOS 06/03/17 Alprazolam* (Alprazolam*) 0.25 Mg Tablet, 0.25 MG PO Q8H Y for ANXIETY, #20 TAB Prov:SEAN COX 06/03/17 Follow-up Plan CONDITION Patient Condition: Stable HOME CARE INSTRUCTIONS: Diet Instructions: Regular FOLLOW UP/APPOINTMENTS Follow-up Plan 1. Follow up with Dr. Sandra Guerra in one week 2. Follow up with Dr. Killian Banda in one week Primary Care Provider Care Physician No Primary Time spent on discharge: > 30 minutes Pending Labs Laboratory Tests Test 06/03/17 04:33 White Blood Count 13.110^3/ul (4.8-10.8) Red Blood Count 4.4810^6/ul (4.20-5.40) Hemoglobin 12.0g/dl (12.0-16.0) Hematocrit 37.5% (37.0-47.0) Mean Corpuscular Volume 83.7fl (82.0-101.0) Mean Corpuscular Hemoglobin 26.8pg (29.0-33.0) Mean Corpuscular Hemoglobin Concent 32.0g/dl (32.0-37.0) Red Cell Distribution Width 14.3% (11.5-14.5) Platelet Count 42311^3/UL (140-415) Mean Platelet Volume 9.3fl (7.4-10.4) Neutrophils % 83.5% (39.0-77.0) Lymphocytes % 11.2% (15.0-51.0) Monocytes % 3.9% (0.0-11.0) Eosinophils % 0.0% (0.0-7.0) Basophils % 0.1% (0.0-2.0) Nucleated Red Blood Cells % 0.0/100WBC (0.0-0.0) Neutrophils # 10.910^3/ul (1.6-7.5) Lymphocytes # 1.510^3/ul (0.8-2.9) Monocytes # 0.510^3/ul (0.3-0.9) Eosinophils # 0.010^3/ul (0.0-0.5) Basophils # 0.010^3/ul (0.0-0.1) Nucleated Red Blood Cells # 0.010^3/ul (0.0-0.0) Sodium Level 140mmol/L (135-144) Potassium Level 4.8mmol/L (3.5-5.1) Chloride Level 102mmol/L (97-110) Carbon Dioxide Level 27mmol/L (21-31) Anion Gap 16 (8-16) Blood Urea Nitrogen 16mg/dl (7-20) Creatinine 0.71mg/dl (0.44-1.00) Glucose Level 130mg/dl (70-220) Calcium Level 8.9mg/dl (8.4-10.2) Total Bilirubin 0.1mg/dl (0.2-1.3) Direct Bilirubin 0.00mg/dl (0.00-0.20) Indirect Bilirubin 0.1mg/dl (0-1.1) Aspartate Amino Transf (AST/SGOT) 68IU/L (15-46) Alanine Aminotransferase (ALT/SGPT) 99IU/L (13-69) Alkaline Phosphatase 119IU/L (42-121) Total Protein 6.6g/dl (6.1-8.1) Albumin 3.8g/dl (3.3-4.9) SEAN COX Jun 03, 2017 15:13
[2017-06-03 15:32] VITALS: BP 121/65; RESP 18
[2017-06-03] MEDS: METHADONE (1 MG/1 ML PO SYG) PO SCH ×2 (16:17→22:46)
[2017-06-03 19:10] VITALS: BP 126/69; RESP 18
--- NOTE | 2017-06-03 21:40 | CONS ---
Date/Time of Note Date/Time of Note DATE: 06/03/17 TIME: 21:34 Assessment/Plan Assessment/Plan Chief Complaint/Hosp Course 61 yo with L breast mass with widespread disease on CT scan which demonstrates subcutaneous stranding within the right breast with a deep fluid collection measuring 4.7 x 1.2 cm , as well as diffuse sclerotic mets, mild pathologic compression of C7, T2, T4, T8 and T10 vertebral bodies as well as a prominent R axillary LN. Extensive family discussion was had with son and patient who understand she has STAGE IV disease. They understand she may need chemotherapy vs targeted therapy but these decisions will made once the IHC stains have come back. #Breast mass -this is now confirmed as breast cancer. immunohistochemistry stains are pending which will help determine what treatment is to be given. -pt and son understand she is not a surgical candidate -once the IHC stains return we can make our treatment decisions #Back Pain - secondary to T spine compression fracture -pt will likely need XRT to spine once a diagnosis has been made. Dr Lord has seen the patient and will start XRT as an out patient -appreciate pain management recs to start methadone #Bone Mets -once a diagnosis has been established, will start bisphosphonate therapy as an out patient Problems: (1) Pathologic compression fracture of spine Status: Acute (2) Primary cancer of right breast with metastasis to other site Status: Acute Problems: Consultation Date/Type/Reason Admit Date/Time May 30, 2017 at 05:17 Initial Consult Date 05/31/17 Type of Consultation: Oncology Reason for Consultation metastatic breast ca Referring Provider: KE GONZALEZ 24 HR Interval Summary Free Text/Dictation pt still feeling pain between doses of dialudid. pt was started on methadone. pt does want to go home. Exam/Review of Systems Vital Signs Vitals Vital Signs Date Time Temp Pulse Resp B/P Pulse Ox O2 Delivery O2 Flow Rate FiO2 06/03/17 19:10 98.3 89 18 126/69 98 05/31/17 13:38 Room Air Intake and Output 06/02/17 06/02/17 06/03/17 15:00 23:00 07:00 Intake Total 1575 ml 1162 ml Output Total 750 ml 1100 ml Balance 825 ml 62 ml Exam Constitutional: alert, oriented Psych: no complaints Head: atraumatic, normocephalic Eyes: nl conjunctiva ENMT: nl external ears & nose Neck: non-tender, supple Respiratory: clear to auscultation, normal air movement Gastrointestinal: soft Musculoskeletal: nl extremities to inspection Results Result Diagram: 06/03/1743206/03/17432 Results 24 hrs Laboratory Tests Test 06/03/17 04:33 White Blood Count 13.1 H Red Blood Count 4.48 Hemoglobin 12.0 Hematocrit 37.5 Mean Corpuscular Volume 83.7 Mean Corpuscular Hemoglobin 26.8 L Mean Corpuscular Hemoglobin Concent 32.0 Red Cell Distribution Width 14.3 Platelet Count 266 Mean Platelet Volume 9.3 Neutrophils % 83.5 H Lymphocytes % 11.2 L Monocytes % 3.9 Eosinophils % 0.0 Basophils % 0.1 Nucleated Red Blood Cells % 0.0 Neutrophils # 10.9 H Lymphocytes # 1.5 Monocytes # 0.5 Eosinophils # 0.0 Basophils # 0.0 Nucleated Red Blood Cells # 0.0 Sodium Level 140 Potassium Level 4.8 Chloride Level 102 Carbon Dioxide Level 27 Anion Gap 16 Blood Urea Nitrogen 16 Creatinine 0.71 Glucose Level 130 Calcium Level 8.9 Total Bilirubin 0.1 L Direct Bilirubin 0.00 Indirect Bilirubin 0.1 Aspartate Amino Transf (AST/SGOT) 68 H Alanine Aminotransferase (ALT/SGPT) 99 H Alkaline Phosphatase 119 Total Protein 6.6 Albumin 3.8 Medications Medications Current Medications Ondansetron HCl (Zofran Inj) 4 mg Q6H PRN IV NAUSEA AND/OR VOMITING Last administered on 06/01/17 10:13; Admin Dose 4 MG; Start 05/30/17 at 06:00 Acetaminophen (Tylenol Tab) 650 mg Q6H PRN PO PAIN LEVEL 1-3 OR FEVER; Start at 06:00 Docusate Sodium (Colace) 100 mg Q12H PO Last administered on 06/03/17 18:28; Admin Dose 100 MG; Start 05/30/17 at 06:00 Bisacodyl (Dulcolax) 5 mg DAILY PO Last administered on 06/03/17 09:11; Admin Dose 5 MG; Start 05/30/17 at 09:00 Pantoprazole (Protonix Iv) 40 mg DAILY@06 IV Last administered on 06/03/17 05: 27; Admin Dose 40 MG; Start 05/30/17 at 06:00 Enoxaparin Sodium (Lovenox) 40 mg DAILY SC Last administered on 06/03/17 09:12 ; Admin Dose 40 MG; Start 05/30/17 at 09:00 Alprazolam 0.25 mg 0.25 mg Q8H PRN PO ANXIETY Last administered on 05/30/17 14 :46; Admin Dose 0.25 MG; Start 05/30/17 at 13:00 Potassium Chloride/Dextrose/ Sod Cl (D5-1/2ns + KCl 20 Meq) 1,000 ml @ 75 mls/ hr [id number] IV Last administered on 06/02/17 21:47; Admin Dose 75 MLS/HR; Start 05/31/17 at 11:00 Metoprolol Succinate (Toprol Xl) 25 mg DAILY PO Last administered on 06/03/17 09:11; Admin Dose 25 MG; Start 05/31/17 at 11:00 Metoclopramide HCl (Reglan) 5 mg Q6H PRN IV nausea Last administered on 20:25; Admin Dose 5 MG; Start 05/31/17 at 16:00 Hydromorphone HCl (Dilaudid) 2 mg Q3H PRN PO PAIN Last administered on 19:00; Admin Dose 2 MG; Start 06/02/17 at 09:00 Ketorolac Tromethamine (Toradol) 30 mg Q6H PRN IV PAIN; Start 06/02/17 at 12:30 ; Stop 06/05/17 at 12:29 Dexamethasone (Decadron) 6 mg BID PO Last administered on 06/03/17 12:18; Admin Dose 6 MG; Start 06/03/17 at 09:30 Methadone HCl (Methadone Liq (Ped)) 2 mg Q8H PO Last administered on 06/03/17 16:17; Admin Dose 2 MG; Start 06/03/17 at 14:30 ZELDA ASHTON M.D. Jun 03, 2017 21:39
[2017-06-04 02:10] VITALS: BP 134/76; RESP 18
[2017-06-04] MEDS: DOCUSATE SODIUM 100 MG CAP PO SCH ×2 (05:43→18:00)
[2017-06-04] MEDS: PANTOPRAZOLE 40 MG INJ IV SCH (05:44)
[2017-06-04 05:47] LABS: BASOPHILS % 0.2 % (0.0-2.0); HEMATOCRIT 42.5 % (37.0-47.0); HEMOGLOBIN 13.6 g/dl (12.0-16.0); LYMPHOCYTES # 2.3 10^3/ul (0.8-2.9); LYMPHOCYTES % 17.9 % (15.0-51.0); MEAN CORPUSCULAR HEMOGLOBIN 26.9 pg (29.0-33.0); MEAN CORPUSCULAR VOLUME 84.2 fl (82.0-101.0); MONOCYTE # 0.6 10^3/ul (0.3-0.9); MONOCYTES % 4.9 % (0.0-11.0); NEUTROPHIL # 9.4 10^3/ul (1.6-7.5); NEUTROPHILS % 74.5 % (39.0-77.0); NUCLEATED RED BLOOD CELLS% 0.2 /100WBC (0.0-0.0); PLATELET COUNT 314 10^3/UL (140-415); RED BLOOD COUNT 5.05 10^6/ul (4.20-5.40); RED CELL DISTRIBUTION WIDTH 14.2 % (11.5-14.5); WHITE BLOOD COUNT 12.7 10^3/ul (4.8-10.8)
[2017-06-04] MEDS: METHADONE (1 MG/1 ML PO SYG) PO SCH ×2 (06:09→13:59)
[2017-06-04 06:13] LABS: CALCIUM 9.3 mg/dl (8.4-10.2); CREATININE 0.73 mg/dl (0.44-1.00); POTASSIUM 4.3 mmol/L (3.5-5.1)
[2017-06-04 07:47] VITALS: BP 123/72; RESP 20
[2017-06-04] MEDS: D5W-0.45 NACL + KCL 20 MEQ 1,000 ML IV SCH (08:20)
[2017-06-04] MEDS: BISACODYL (EC) 5 MG TAB PO SCH (09:17)
[2017-06-04] MEDS: DEXAMETHASONE 2 MG TAB PO SCH (09:17)
[2017-06-04] MEDS: METOPROLOL (XL) 25 MG TAB PO SCH (09:17)
[2017-06-04] MEDS: ENOXAPARIN 40 MG/0.4 ML SYG SC SCH (09:21)
--- NOTE | 2017-06-04 11:55 | CONS ---
Date/Time of Note Date/Time of Note DATE: 06/04/17 TIME: 11:52 Assessment/Plan Assessment/Plan Chief Complaint/Hosp Course 61-year-old female who presented to emergency room [facility] in pain, primarily lumbosacral spine. Apparently this is been going on for a couple of months prior to his presentation, increase in severity associated with profound weight loss. Pain is described as 10/10 with minimal movement, throbbing pain that does not radiate into her chest wall.. Pain is interfering with her overall physical function and sleeping patterns. She is only received morphine up until this time but has not ask for as needed dosings for unclear reasons. When she does take morphine as needed she has some alleviation of pain but only moderately. Her son states that she is having periodic bouts of nausea but without vomiting. Patient has no past medical history of opioid use abuse smoking or alcohol consumption. Presumptive diagnosis is metastatic breast cancer with metastases to lumbar sacral spine, biopsy pending. Pain is under control with combination of methadone and dilaudid Problems: Consultation Date/Type/Reason Admit Date/Time May 30, 2017 at 05:17 Initial Consult Date 05/31/17 Type of Consultation: Pain management Referring Provider: KE GONZALEZ Exam/Review of Systems Vital Signs Vitals Vital Signs Date Time Temp Pulse Resp B/P Pulse Ox O2 Delivery O2 Flow Rate FiO2 06/04/17 07:47 98.3 85 20 123/72 97 05/31/17 13:38 Room Air Intake and Output 06/03/17 06/03/17 06/04/17 15:00 23:00 07:00 Intake Total 1540 ml 240 ml Balance 1540 ml 240 ml Results Result Diagram: 06/04/17 0446 06/04/17 0446 Results 24 hrs Laboratory Tests Test 06/04/17 04:46 White Blood Count 12.7 H Red Blood Count 5.05 Hemoglobin 13.6 Hematocrit 42.5 Mean Corpuscular Volume 84.2 Mean Corpuscular Hemoglobin 26.9 L Mean Corpuscular Hemoglobin Concent 32.0 Red Cell Distribution Width 14.2 Platelet Count 314 Mean Platelet Volume 9.0 Neutrophils % 74.5 Lymphocytes % 17.9 Monocytes % 4.9 Eosinophils % 0.0 Basophils % 0.2 Nucleated Red Blood Cells % 0.2 H Neutrophils # 9.4 H Lymphocytes # 2.3 Monocytes # 0.6 Eosinophils # 0.0 Basophils # 0.0 Nucleated Red Blood Cells # 0.0 Sodium Level 142 Potassium Level 4.3 Chloride Level 99 Carbon Dioxide Level 28 Anion Gap 19 H Blood Urea Nitrogen 19 Creatinine 0.73 Glucose Level 116 Calcium Level 9.3 Medications Medications Current Medications Ondansetron HCl (Zofran Inj) 4 mg Q6H PRN IV NAUSEA AND/OR VOMITING Last administered on 06/01/17 10:13; Admin Dose 4 MG; Start 05/30/17 at 06:00 Acetaminophen (Tylenol Tab) 650 mg Q6H PRN PO PAIN LEVEL 1-3 OR FEVER; Start at 06:00 Docusate Sodium (Colace) 100 mg Q12H PO Last administered on 06/04/17 05:43; Admin Dose 100 MG; Start 05/30/17 at 06:00 Bisacodyl (Dulcolax) 5 mg DAILY PO Last administered on 06/04/17 09:17; Admin Dose 5 MG; Start 05/30/17 at 09:00 Pantoprazole (Protonix Iv) 40 mg DAILY@06 IV Last administered on 06/03/17 05: 27; Admin Dose 40 MG; Start 05/30/17 at 06:00 Enoxaparin Sodium (Lovenox) 40 mg DAILY SC Last administered on 06/04/17 09:21 ; Admin Dose 40 MG; Start 05/30/17 at 09:00 Alprazolam 0.25 mg 0.25 mg Q8H PRN PO ANXIETY Last administered on 05/30/17 14 :46; Admin Dose 0.25 MG; Start 05/30/17 at 13:00 Potassium Chloride/Dextrose/ Sod Cl (D5-1/2ns + KCl 20 Meq) 1,000 ml @ 75 mls/ hr [id number] IV Last administered on 06/02/17 21:47; Admin Dose 75 MLS/HR; Start 05/31/17 at 11:00 Metoprolol Succinate (Toprol Xl) 25 mg DAILY PO Last administered on 06/04/17 09:17; Admin Dose 25 MG; Start 05/31/17 at 11:00 Metoclopramide HCl (Reglan) 5 mg Q6H PRN IV nausea Last administered on 20:25; Admin Dose 5 MG; Start 05/31/17 at 16:00 Hydromorphone HCl (Dilaudid) 2 mg Q3H PRN PO PAIN Last administered on 21:41; Admin Dose 2 MG; Start 06/02/17 at 09:00 Ketorolac Tromethamine (Toradol) 30 mg Q6H PRN IV PAIN; Start 06/02/17 at 12:30 ; Stop 06/05/17 at 12:29 Dexamethasone (Decadron) 6 mg BID PO Last administered on 06/04/17 09:17; Admin Dose 6 MG; Start 06/03/17 at 09:30 Methadone HCl (Methadone Liq (Ped)) 2 mg Q8H PO Last administered on 06/04/17 06:09; Admin Dose 2 MG; Start 06/03/17 at 14:30 HILLARY GALE Jun 04, 2017 11:55
--- NOTE | 2017-06-04 12:08 | CONS ---
Date/Time of Note Date/Time of Note DATE: 06/04/17 TIME: 11:59 Assessment/Plan Assessment/Plan Chief Complaint/Hosp Course 61-year-old female who presented to emergency room [facility] in pain, primarily lumbosacral spine. Apparently this is been going on for a couple of months prior to his presentation, increase in severity associated with profound weight loss. Pain is described as 10/10 with minimal movement, throbbing pain that does not radiate into her chest wall.. Pain is interfering with her overall physical function and sleeping patterns. She is only received morphine up until this time but has not ask for as needed dosings for unclear reasons. When she does take morphine as needed she has some alleviation of pain but only moderately. Her son states that she is having periodic bouts of nausea but without vomiting. Patient has no past medical history of opioid use abuse smoking or alcohol consumption. Presumptive diagnosis is metastatic breast cancer with metastases to lumbar sacral spine, biopsy pending. Pain is under control with combination of methadone and dilaudid Problems: Additional Assessment/Plan Going home today on a combination methadone and Dilaudid oral. Through an translator/interpreter she told me her pain is completely under control at this time including her lumbosacral spine thoracic spine and bilateral knees. Denies nausea vomiting constipation,drowsiness...she will be discharged dto the care of Oncology consults... Consultation Date/Type/Reason Admit Date/Time May 30, 2017 at 05:17 Initial Consult Date 05/31/17 Type of Consultation: Pain management Referring Provider: KE GONZALEZ Exam/Review of Systems Vital Signs Vitals Vital Signs Date Time Temp Pulse Resp B/P Pulse Ox O2 Delivery O2 Flow Rate FiO2 06/04/17 07:47 98.3 85 20 123/72 97 05/31/17 13:38 Room Air Intake and Output 06/03/17 06/03/17 06/04/17 15:00 23:00 07:00 Intake Total 1540 ml 240 ml Balance 1540 ml 240 ml Results Result Diagram: 06/04/17 0446 06/04/17 0446 Results 24 hrs Laboratory Tests Test 06/04/17 04:46 White Blood Count 12.7 H Red Blood Count 5.05 Hemoglobin 13.6 Hematocrit 42.5 Mean Corpuscular Volume 84.2 Mean Corpuscular Hemoglobin 26.9 L Mean Corpuscular Hemoglobin Concent 32.0 Red Cell Distribution Width 14.2 Platelet Count 314 Mean Platelet Volume 9.0 Neutrophils % 74.5 Lymphocytes % 17.9 Monocytes % 4.9 Eosinophils % 0.0 Basophils % 0.2 Nucleated Red Blood Cells % 0.2 H Neutrophils # 9.4 H Lymphocytes # 2.3 Monocytes # 0.6 Eosinophils # 0.0 Basophils # 0.0 Nucleated Red Blood Cells # 0.0 Sodium Level 142 Potassium Level 4.3 Chloride Level 99 Carbon Dioxide Level 28 Anion Gap 19 H Blood Urea Nitrogen 19 Creatinine 0.73 Glucose Level 116 Calcium Level 9.3 Medications Medications Current Medications Ondansetron HCl (Zofran Inj) 4 mg Q6H PRN IV NAUSEA AND/OR VOMITING Last administered on 06/01/17 10:13; Admin Dose 4 MG; Start 05/30/17 at 06:00 Acetaminophen (Tylenol Tab) 650 mg Q6H PRN PO PAIN LEVEL 1-3 OR FEVER; Start at 06:00 Docusate Sodium (Colace) 100 mg Q12H PO Last administered on 06/04/17 05:43; Admin Dose 100 MG; Start 05/30/17 at 06:00 Bisacodyl (Dulcolax) 5 mg DAILY PO Last administered on 06/04/17 09:17; Admin Dose 5 MG; Start 05/30/17 at 09:00 Pantoprazole (Protonix Iv) 40 mg DAILY@06 IV Last administered on 06/03/17 05: 27; Admin Dose 40 MG; Start 05/30/17 at 06:00 Enoxaparin Sodium (Lovenox) 40 mg DAILY SC Last administered on 06/04/17 09:21 ; Admin Dose 40 MG; Start 05/30/17 at 09:00 Alprazolam 0.25 mg 0.25 mg Q8H PRN PO ANXIETY Last administered on 05/30/17 14 :46; Admin Dose 0.25 MG; Start 05/30/17 at 13:00 Potassium Chloride/Dextrose/ Sod Cl (D5-1/2ns + KCl 20 Meq) 1,000 ml @ 75 mls/ hr [id number] IV Last administered on 06/02/17 21:47; Admin Dose 75 MLS/HR; Start 05/31/17 at 11:00 Metoprolol Succinate (Toprol Xl) 25 mg DAILY PO Last administered on 06/04/17 09:17; Admin Dose 25 MG; Start 05/31/17 at 11:00 Metoclopramide HCl (Reglan) 5 mg Q6H PRN IV nausea Last administered on 20:25; Admin Dose 5 MG; Start 05/31/17 at 16:00 Hydromorphone HCl (Dilaudid) 2 mg Q3H PRN PO PAIN Last administered on 21:41; Admin Dose 2 MG; Start 06/02/17 at 09:00 Ketorolac Tromethamine (Toradol) 30 mg Q6H PRN IV PAIN; Start 06/02/17 at 12:30 ; Stop 06/05/17 at 12:29 Dexamethasone (Decadron) 6 mg BID PO Last administered on 06/04/17 09:17; Admin Dose 6 MG; Start 06/03/17 at 09:30 Methadone HCl (Methadone Liq (Ped)) 2 mg Q8H PO Last administered on 06/04/17 06:09; Admin Dose 2 MG; Start 06/03/17 at 14:30 HILLARY GALE Jun 04, 2017 12:08
--- NOTE | 2017-06-04 14:30 | DS ---
Date/Time of Note Date/Time of Note DATE: 06/04/17 TIME: 14:29 Discharge Summary Admission/Discharge Info Admit Date/Time May 30, 2017 at 05:17 Discharge Date/Time Discharge Diagnosis 1. Breast Cancer 2. Bone metastasis 3. Pathologic spinal compression fracture Hx of Present Illness This is a 61-year-old female with no reported past medical history who came to [facility] due to reports of back pain. According to the patient has been having back pain for 1 month duration. She reported that she was carrying water and subsequently since then has been having worsening back pain making it harder for her to ambulate. She subsequently went to [facility]. She was also found to have a right breast mass with the patient that she has been having for 3 months duration. She reports that she had not had a checkup for biopsy in the past. She reports her last mammogram was 2 years ago which she reports was normal. She did have imaging done with abdominal pelvic ultrasound that did show her to have some cutaneous stranding within the right breast to the deep fluid collection measuring 4.7 x 1.2 cm suspect for neoplastic disease. On physical exam patient was seen with nurse patient noted with hardened right breast with darkish discoloration from bottom portion of right breast. Her back daily and lumbar CT scan that did show her to have probable widespread bony metastatic disease with minor end plate depressions at multiple levels of approximately 55% probable compression fracture of T10. She was also seen with some transaminitis however denies any abdominal pain. We will evaluate her for the aformentiond issues. Hospital Course This Is a 61-year-old female with no reported past medical history who came to [facility] due to reports of back pain and weakness. According to report patient was going to case water when she started have worse back pain. Subsequently thereafter she started to have difficulty with walking and worse pain. Patient also reported having a right breast mass for 3 months duration and had not had any check of her biopsy for this. Her last mammogram was done 2 years prior to admission which she reports was normal. She did have abdominal pelvic ultrasound done that did show her to have some cutaneous stranding within the right breast and deep fluid collection measuring 4.7 x 1.2 cm suspect for neoplastic disease. We did get surgeon as well as oncologist to follow. She did have further breast ultrasound done that did show right 6 o' clock position 40 mm circumscribed sonographic nodule with a mildly prominent 9 mm right axillary lymph node. She did have a breast biopsy on the right side that did show invasive ductal carcinoma moderately differentiated. Additionally she did have multiple bone imagings including cervical and thoracic and as well as a bone scan that did show her to have multiple abnormal focal areas consistent with skeletal metastasis. Patient also was seen with spinal compression fracture likely from her metastasis. We did continue with pain management as well as to physical therapy. During the course of stay we did get appropriate pain relief with analgesics. Pain management physician was also following. We did provide the patient with anxiolytics for anxiety. Patient was referred to oncologist for outpatient for further monitoring and care and treatment of her new malignancy. The plan of care was discussed with the patient and patient did verbalize her understanding. Patient was plan for discharge on June 03, 2017 however patient was placed on methadone and we did monitor her response to it. She did have good response to medication and we did resume this for her for outpatient. She was also evaluated by radiation oncologist. On the day of discharge patient was in stable condition Discussed plan of care with Dr. Crocker [facility] ([facility]) Active Scripts Docusate Sodium (Dok) 100 Mg Capsule, 100 MG PO Q12H Y for CONSTIPATION, #40 CAP Prov:SEAN COX 06/03/17 Ondansetron Hcl* (Zofran*) 4 Mg Tablet, 4 MG PO Q6H Y for NAUSEA AND OR VOMITING , #30 TAB Prov:SEAN COX 06/03/17 Metoprolol Succinate* (Toprol XL*) 25 Mg Tab.sr.24h, 25 MG PO DAILY for 30 Days Prov:SEAN COX 06/03/17 Hydromorphone Hcl* (Dilaudid*) 2 Mg Tablet, 2 MG PO Q3H Y for PAIN, #50 TAB Prov:SEAN COX 06/03/17 Alprazolam* (Alprazolam*) 0.25 Mg Tablet, 0.25 MG PO Q8H Y for ANXIETY, #20 TAB Prov:SEAN COX 06/03/17 Primary Care Provider Care Physician No Primary Pending Labs Laboratory Tests Test 06/04/17 04:46 White Blood Count 12.710^3/ul (4.8-10.8) Red Blood Count 5.0510^6/ul (4.20-5.40) Hemoglobin 13.6g/dl (12.0-16.0) Hematocrit 42.5% (37.0-47.0) Mean Corpuscular Volume 84.2fl (82.0-101.0) Mean Corpuscular Hemoglobin 26.9pg (29.0-33.0) Mean Corpuscular Hemoglobin Concent 32.0g/dl (32.0-37.0) Red Cell Distribution Width 14.2% (11.5-14.5) Platelet Count 44337^3/UL (140-415) Mean Platelet Volume 9.0fl (7.4-10.4) Neutrophils % 74.5% (39.0-77.0) Lymphocytes % 17.9% (15.0-51.0) Monocytes % 4.9% (0.0-11.0) Eosinophils % 0.0% (0.0-7.0) Basophils % 0.2% (0.0-2.0) Nucleated Red Blood Cells % 0.2/100WBC (0.0-0.0) Neutrophils # 9.410^3/ul (1.6-7.5) Lymphocytes # 2.310^3/ul (0.8-2.9) Monocytes # 0.610^3/ul (0.3-0.9) Eosinophils # 0.010^3/ul (0.0-0.5) Basophils # 0.010^3/ul (0.0-0.1) Nucleated Red Blood Cells # 0.010^3/ul (0.0-0.0) Sodium Level 142mmol/L (135-144) Potassium Level 4.3mmol/L (3.5-5.1) Chloride Level 99mmol/L (97-110) Carbon Dioxide Level 28mmol/L (21-31) Anion Gap 19 (8-16) Blood Urea Nitrogen 19mg/dl (7-20) Creatinine 0.73mg/dl (0.44-1.00) Glucose Level 116mg/dl (70-220) Calcium Level 9.3mg/dl (8.4-10.2) SEAN COX Jun 04, 2017 14:30
[2017-06-04 14:47] VITALS: BP 131/64; RESP 18
[2017-06-04] MEDS: HYDROmorphONE 2 MG TAB PO PRN (17:50)
--- NOTE | 2017-06-08 03:59 | CONS ---
DATE OF ADMISSION: 05/30/2017 DATE OF CONSULTATION: 06/03/2017 DIAGNOSIS: Metastatic carcinoma of the right breast, stage 4. REFERRING PHYSICIAN: Sandra Guerra MD. NARRATIVE: The patient is a 61-year-old postmenopausal female with no significant past medical history, no family history of breast cancer, who presented for medical attention with complaints of progressive left lower back pain, radiating into the left leg for 2 months. She also endorsed a history of a left breast mass progressing in size over 2 or 3 months. She has noticed a decreased appetite, weight loss, and nausea as well. She was assessed at [facility] where a physical examination was significant for a large right breast mass, occupying the lower half of the breast with associated skin changes. On May 31, 2017, a right breast ultrasound was performed. At the 6 o'clock position, was an avascular 14-mm nodule. There was also a mildly prominent 9-mm right axillary lymph node. Biopsy confirmed moderately differentiated invasive ductal carcinoma, immunohistochemical staining for markers is pending. On May 30, a CT of the lumbar spine was performed and described a mottled mixed lytic and sclerotic density of multiple vertebral bodies. At T10, there was an associated pathologic compression fracture of approximately 50% loss of height with minimal retropulsion. Mixed lytic and sclerotic densities were seen through all the visualized vertebral bodies. There was a large staghorn calculus in the inferior renal collecting system, extending to the left renal pelvis, measuring [address] abdomen and chest with contrast revealed that within the right breast was a deep fluid collection, measuring nearly 5 cm in greatest dimension, as well as a 2-cm right axillary lymph node. The liver was normal in size with no dominant lesions. Sclerotic metastases were seen throughout the body of the skeleton and mild pathologic compression fracture deformities were noted at C7, T2, T4, T8, and T10. A whole body bone scan on June 01 confirmed intense uptake in the calvarium, sternum, spine, rib cages bilaterally, both shoulders, left proximal to mid humerus, right distal humerus, pelvic bones bilaterally, both hips, the left femoral head and neck, and the left mid to distal femur. MRI imaging of the cervical and thoracic spine confirmed diffuse osseus metastases with mild compression fractures at T4, T6, and T10, and moderate compression fracture of T8. Fractures without vertebral height loss at T7 and L1. Marrow-replacing lesions were also partially imaged, involving the bilateral ribs and upper lumbar spine. There was no definite evidence of cord or neural foraminal compromise. An MRI of the brain on May 31, disclosed no evidence of parenchymal metastases, but multiple bilateral calvarial lesions were observed with adjacent dural involvement and small soft tissue components, including in the right paramedian frontal lobe bone measuring 36 x 32 mm and in the left parietal lobe measuring 40 x 38 mm. The patient's pain control is in the process of being controlled with Dilaudid and Toradol. She is feeling better. PAST MEDICAL HISTORY: Hypertension. PAST SURGICAL HISTORY: Noncontributory. ALLERGIES: NONE. CURRENT MEDICATIONS: 1. Colace. 2. Zofran. 3. Toprol XL. 4. Dilaudid 2 mg q.3 hours. 5. Alprazolam. SOCIAL HISTORY: She is here today with multiple family members. She denies tobacco or alcohol use. FAMILY HISTORY: No pertinent family history. REVIEW OF SYSTEMS: General: Admits significant fatigue. No fevers, chills, or sweats. ENT: No antalgias, hoarseness. Neurologic: No headaches, seizures, extremity weakness or numbness. Respiratory: No shortness of breath, cough, hemoptysis, or wheezing. Cardiovascular: No chest pain or palpitations, heart attacks or strokes. GI: As noted above, nausea, vomiting, decreased appetite, and weight loss. Some constipation. No abdominal pain. No rectal bleeding. : No dysuria, hematuria, or incontinence. Endocrine: No diabetes or thyroid disease. Skin: No scars. Musculoskeletal: Lower back pain as described, radiating to the left lower extremity. PHYSICAL EXAMINATION: GENERAL: This is a somewhat frail-appearing female in no acute distress. HEENT: Normocephalic, atraumatic. Sclerae anicteric. Cranial nerves intact. Pupils are myotic. No facial droop. No palpable cervical or supraclavicular adenopathy. LUNGS: Clear without wheezes. ABDOMEN: Soft and nontender without rebound or guarding. EXTREMITIES: No cyanosis or edema. NEUROLOGIC: No gross focal motor or sensory deficits in the lower extremities. The patient can move all extremities without difficulty or pain. No deficits to soft touch or pin prick. Toes are downgoing. IMPRESSION: The patient is a 61-year-old female who has now been diagnosed with stage 4 carcinoma of the breast with extensive bony metastases. PLAN: Pain control will be optimized, and the patient will likely be discharged home within the next day or 2. If she is in- house tomorrow, we will try to be available to schedule her for an inpatient CT simulation for planning purposes with intent on radiating the lower thoracic and lumbar spine over 3 weeks. Systemic therapy is pending results of the prognostic markers. We reviewed the nature of our services with the treatment. Side effects were discussed. This included, but not limited to, discussion on the potential for fatigue, skin reaction, nausea, vomiting, cramping, diarrhea, pulmonary suppression. Questions were answered. She is amenable to undergoing simulation tomorrow, and we will put her on the schedule. I anticipate treatment to start early next week. Dictated By: Killian Banda MD /wolf/jude /Document#: [id number]
== END 2017-06-04 18:40 | disposition home health service (06) | DRG 542 ==
LOC: FTE 00:23 → MS1 05:17
PROVIDERS: ADMIT Family Medicine; ATTEND Family Medicine
PROC: 0HBT3ZX Excision of Right Breast, Percutaneous Approach, Diagnostic (ICD-10-PCS; principal; 2017-05-30)
DX: M84.58XA Pathological fracture in neoplastic disease, other specified site, initial encounter for fracture (principal); E43 Unspecified severe protein-calorie malnutrition; C79.51 Secondary malignant neoplasm of bone; C50.911 Malignant neoplasm of unspecified site of right female breast; Z68.1 Body mass index [BMI] 19.9 or less, adult; M25.562 Pain in left knee; F41.9 Anxiety disorder, unspecified; R11.0 Nausea
CPT/HCPCS: 36415; 70553; 71260; 72131; 72156; 72157; 73562; 74177; 76705; 76942; 77290; 77334; 78306; 80048; 80053; 80076; 82378; 83540; 83690; 83735; 83970; 84443; 85025; 85610; 85651; 85730; 86140; 86300; 86301; 86304; 86704; 86709; 86803; 87340; 88307; 88313; 93005; 93971; 96374; 97162; A9503; J3487; C9113; J1100; J1170; J1650; J2270; J2405; J2765; J3480; Q9967

== ENCOUNTER 2017-06-22 19:19 | Inpatient (IN) | payer MEDICAID ==
[~2017-06-22] VITALS: Ht 162.6 cm; Wt 38.6 kg
[~2017-06-22 19:19] MED LIST changes: -DOCU-144 PO; -ENOX40DI12 SC; -FAMO20TA18 PO; -HYDR2TAB3 PO; -IBUP800T25 PO; -METH10SO PO; -ONDA-43 PO; -OXYC-209 PO
[2017-06-22] MEDS ORDERED: SOD CHLORIDE 0.9% 500 ML IV STA (20:36)
[2017-06-22] MEDS ORDERED: ONDANSETRON 4 MG INJ IV STA ×2 (20:36→21:39)
[2017-06-22] MEDS ORDERED: HYDROmorphONE 1 MG/ML SYG IV STA (20:36)
[2017-06-22 20:56] LABS: BASOPHILS % 0.8 % (0.0-2.0); EOSINOPHILS # 0.2 10^3/ul (0.0-0.5); HEMATOCRIT 38.3 % (37.0-47.0); HEMOGLOBIN 12.2 g/dl (12.0-16.0); LYMPHOCYTES # 0.9 10^3/ul (0.8-2.9); LYMPHOCYTES % 18.1 % (15.0-51.0); MEAN CORPUSCULAR HEMOGLOBIN 26.8 pg (29.0-33.0); MEAN CORPUSCULAR HGB CONC 31.9 g/dl (32.0-37.0); MEAN CORPUSCULAR VOLUME 84.2 fl (82.0-101.0); MEAN PLATELET VOLUME 8.4 fl (7.4-10.4); MONOCYTE # 0.5 10^3/ul (0.3-0.9); MONOCYTES % 10.3 % (0.0-11.0); PLATELET COUNT 409 10^3/UL (140-415); RED BLOOD COUNT 4.55 10^6/ul (4.20-5.40); RED CELL DISTRIBUTION WIDTH 13.9 % (11.5-14.5)
[2017-06-22 21:25] LABS: CALCIUM 10.3 mg/dl (8.4-10.2); CREATININE 0.84 mg/dl (0.44-1.00); POTASSIUM 3.3 mmol/L (3.5-5.1)
[2017-06-22] MEDS ORDERED: LORAZEPAM 2 MG INJ ONE (21:39)
--- NOTE | 2017-06-22 21:39 | ERA ---
ER Documentation Chief Complaint Date/Time DATE: 06/22/17 TIME: 21:33 Chief Complaint left hip pain hx ca of the bone broken left hip HPI This is a 61-year-old female with known stage IV metastatic breast CA to the bone. The patient presents with an x-ray done today showing a left hip fracture. The patient has not had a fall or injury. Her pain is significant and worse with movement with shortening of the left lower extremity. She is nonambulatory. She is receiving radiation therapy but no chemotherapy. The pain is 10 out of 10 currently. ROS All systems reviewed and are negative except as per history of present illness. Medications Home Meds Active Scripts Oxycodone HCl/Acetaminophen (Percocet 5-325 mg Tablet) 1 Each Tablet, 1 EACH PO Q6, #30 TAB Prov:NICHOLAS JIMENEZ PA-C 06/05/17 Ondansetron (Ondansetron Odt) 8 Mg Tab.rapdis, 8 MG PO Q6H Y for NAUSEA AND/OR VOMITING, #30 TAB Prov:NICHOLAS JIMENEZ PA-C 06/05/17 Reported Medications [No Meds] No Conflict Check 06/29/12 Allergies Allergies: Coded Allergies: Penicillins (Verified Allergy, Unknown, 06/22/17) PMhx/Soc History of Surgery: No Anesthesia Reaction: No Hx Neurological Disorder: No Hx Respiratory Disorders: No Hx Cardiac Disorders: No Hx Psychiatric Problems: No Hx Miscellaneous Medical Probl: Yes (RIGHT BREAST CA METS TO SPINE) Hx Alcohol Use: No Hx Substance Use: No Hx Tobacco Use: No Smoking Status: Never smoker FmHx Family History: No diabetes Physical Exam Vitals Vital Signs Date Time Temp Pulse Resp B/P Pulse Ox O2 Delivery O2 Flow Rate FiO2 06/22/17 21:00 98.9 111 29 145/91 100 Nasal Cannula 2.0 06/22/17 19:21 99.6 111 20 144/64 97 Physical Exam General: Cachectic and malnourished, uncomfortable Head: Normocephalic, atraumatic. Eyes: Pupils equally reactive, EOM intact ENT: Moist mucous membranes Neck: Supple, no lymphadenopathy Respiratory: Lungs clear bilaterally, no distress Cardiovascular: RRR, no murmurs, rubs, or gallops Abdominal: Soft, non-tender, non-distended, no peritoneal signs : Deferred MSK: Shortening of the left lower extremity with limited range of motion and tenderness to the left hip Neurologic: Alert and oriented, generally weak Skin: No rash Psych: Normal mood Result Diagram: 06/22/17203706/22/172037 Results 24 hrs Laboratory Tests Test 06/22/17 20:38 White Blood Count 5.010^3/ul Red Blood Count 4.5510^6/ul Hemoglobin 12.2g/dl Hematocrit 38.3% Mean Corpuscular Volume 84.2fl Mean Corpuscular Hemoglobin 26.8pg Mean Corpuscular Hemoglobin Concent 31.9g/dl Red Cell Distribution Width 13.9% Platelet Count 96515^3/UL Mean Platelet Volume 8.4fl Neutrophils % 66.0% Lymphocytes % 18.1% Monocytes % 10.3% Eosinophils % 3.0% Basophils % 0.8% Nucleated Red Blood Cells % 0.0/100WBC Neutrophils # (Manual) 310^3/ul Lymphocytes # 0.910^3/ul Monocytes # 0.510^3/ul Eosinophils # 0.210^3/ul Basophils # 0.010^3/ul Nucleated Red Blood Cells # 0.010^3/ul Sodium Level 144mmol/L Potassium Level 3.3mmol/L Chloride Level 96mmol/L Carbon Dioxide Level 30mmol/L Anion Gap 21 Blood Urea Nitrogen 22mg/dl Creatinine 0.84mg/dl Glucose Level 94mg/dl Calcium Level 10.3mg/dl Current Medications Medications (Trade) Dose Ordered Sig/Jonatan Route PRN Reason Start Time Stop Time Status Last Admin Dose Admin Sodium Chloride (NS) 500 ml @ 500 mls/hr Q1H STAT IV 06/22/17 20:36 06/22/17 21:35 06/22/17 20:47 Hydromorphone HCl (Dilaudid) 1 mg ONCE STAT IV 06/22/17 20:36 06/22/17 20:37 DC 06/22/17 20:48 Ondansetron HCl (Zofran Inj) 4 mg ONCE STAT IV 06/22/17 20:36 06/22/17 20:37 DC 06/22/17 20:48 Procedures/MDM EKG, MONITORS, & DIAGNOSTIC IMAGING: X-ray left hip from earlier today IMPRESSION: 1. Acute left hip inferior neck fracture with marked varus deformity. 2. Lytic lesion of the left inferior pubic ramus and ischial tuberosity with probable nondisplaced pathologic fracture at this site. 3. Possible small lytic lesions of the proximal left femoral shaft. Call report: A call report of the findings was made to Dr. Killian Banda on 06/22 at 1800 hours. RPTAT: QQ LAB INTERPRETATION: Hypercalcemia of malignancy MEDICAL DECISION MAKING: The patient presents with what appears to be a pathologic left hip fracture. The patient will benefit from pain control. It appears the family has initiated conversations for palliative and hospice care which I believe would be appropriate. Pain control would be appropriate. She is not a very good surgical candidate but I will discuss the case with orthopedic surgery. ER COURSE: The patient was given fluids and pain medication. Patient had a anxiety reaction to the Dilaudid was given Ativan and Zofran with improved symptomatology. I kept the patient and/or family informed of laboratory and diagnostic imaging results throughout the emergency room course. DISPOSITION PLAN: Medical surgical admission for pain control CONSULTATION: Accepting care team and consultations: I discussed the current laboratory data, diagnostic imaging and emergency care provided. Admitting team: Dr. Rehman Admitting team indication: Insurance directed Consulting services: Aziza Marcelino, Dr. Mari salvador. Departure Diagnosis: Primary Impression: Pathological fracture of left hip Qualified Code: M84.452A - Pathological fracture of left hip, unspecified pathological cause, initial encounter Additional Impressions: Metastatic breast cancer Hypercalcemia Condition: Stable YVETTE GAMBINO MD Jun 22, 2017 21:39
[2017-06-22] MEDS ORDERED: ACETAMINOPHEN 325 MG TAB PO PRN (22:00)
[2017-06-22] MEDS ORDERED: ONDANSETRON 4 MG INJ IV PRN (22:00)
[2017-06-22] MEDS ORDERED: LORAZEPAM 2 MG INJ IV ONE (22:00)
--- NOTE | 2017-06-22 22:44 | HP ---
Date/Time of Note Date/Time of Note DATE: 06/22/17 TIME: 22:36 Assessment/Plan VTE Prophylaxis VTE Prophylaxis Intervention: LMWH Assessment/Plan Assessment/Plan 61-year-old female with a recent diagnosis of metastatic breast cancer, currently undergoing radiation therapy to her hips because of metastasis who was sent to the emergency room because of pathologic fractures 1. Acute left hip pathologic fractures secondary to metastasis 2. Multiple lytic lesions consistent with metastatic breast cancer: currently undergoing hip radiation for mets, but is planned for oral treatment with anticipation of good treatment response. PLAN: admit med surg / ortho consulted from ER / Await recs pain control/ antiemetics/ antipyretics/ supportive care Prophylaxis: Lovenox / Pepcid HPI/ROS Admit Date/Time Admit Date/Time 06/22/17 Hx of Present Illness 61-year-old female with a recent diagnosis of breast cancer currently undergoing radiation therapy for metastatic breast cancer but is scheduled to commence oral therapy for breast cancer next week. She was sent to the emergency room by the radiation oncologist because of a pathologic fracture, she is to be seen by orthopedic surgery. Her current complaint is left hip pain. I spoke with oncologist who reports that patient has good prognosis and is anticipated to have good response to oral therapy but she just needs to be stabilized from a pain standpoint and may need a pin in her left hip. ROS 12 point review if systems was done and pertinent findings are as noted. PMH/Family/Social Past Medical History * Metastatic breast cancer on treatment Social History Smoking Status: Never smoker Exam/Review of Systems Vital Signs Vitals Vital Signs Date Time Temp Pulse Resp B/P Pulse Ox O2 Delivery O2 Flow Rate FiO2 06/22/17 21:50 98.9 103 20 146/91 97 Room Air 06/22/17 21:00 2.0 Exam Constitutional: alert, frail, oriented, other (cachectic) Head: normocephalic Eyes: PERRL Neck: non-tender, supple Respiratory: clear to auscultation, diminished breath sounds Cardiovascular: regular rate and rhythm, No murmurs/extra sounds Gastrointestinal: bowel sounds, non-tender, soft Musculoskeletal: other (Shortening of the left lower extremity with limited range of motion and tenderness to the left hip), No nl extremities to inspection Neurological: lethargic, nl mental status, No confused Labs Result Diagram: 8/203706/22/172037 Procedures Procedures Laboratory Tests Test 06/22/17 20:38 White Blood Count 5.010^3/ul Red Blood Count 4.5510^6/ul Hemoglobin 12.2g/dl Hematocrit 38.3% Mean Corpuscular Volume 84.2fl Mean Corpuscular Hemoglobin 26.8pg Mean Corpuscular Hemoglobin Concent 31.9g/dl Red Cell Distribution Width 13.9% Platelet Count 60367^3/UL Mean Platelet Volume 8.4fl Neutrophils % 66.0% Lymphocytes % 18.1% Monocytes % 10.3% Eosinophils % 3.0% Basophils % 0.8% Nucleated Red Blood Cells % 0.0/100WBC Neutrophils # (Manual) 310^3/ul Lymphocytes # 0.910^3/ul Monocytes # 0.510^3/ul Eosinophils # 0.210^3/ul Basophils # 0.010^3/ul Nucleated Red Blood Cells # 0.010^3/ul Sodium Level 144mmol/L Potassium Level 3.3mmol/L Chloride Level 96mmol/L Carbon Dioxide Level 30mmol/L Anion Gap 21 Blood Urea Nitrogen 22mg/dl Creatinine 0.84mg/dl Glucose Level 94mg/dl Calcium Level 10.3mg/dl Current Medications Medications (Trade) Dose Ordered Sig/Jonatan Route PRN Reason Start Time Stop Time Status Last Admin Dose Admin Sodium Chloride (NS) 500 ml @ 500 mls/hr Q1H STAT IV 06/22/17 20:36 06/22/17 21:35 DC 06/22/17 20:47 500 MLS/HR Hydromorphone HCl (Dilaudid) 1 mg ONCE STAT IV 06/22/17 20:36 06/22/17 20:37 DC 06/22/17 20:48 1 MG Ondansetron HCl (Zofran Inj) 4 mg ONCE STAT IV 06/22/17 20:36 06/22/17 20:37 DC 06/22/17 20:48 4 MG Ondansetron HCl (Zofran Inj) 4 mg BRIDGE ORDER PRN IV NAUSEA AND/OR VOMITING 06/22/17 22:00 06/23/17 21:59 06/22/17 22:10 4 MG Acetaminophen (Tylenol Tab) 650 mg ER BRIDGE PRN PO MILD PAIN/FEVER 06/22/17 22:00 06/23/17 21:59 Lorazepam (Ativan) 2 mg STK-MED ONCE .ROUTE 06/22/17 21:39 06/22/17 21:40 DC Ondansetron HCl (Zofran Inj) 4 mg ONCE STAT IV 06/22/17 21:39 06/22/17 21:41 DC Lorazepam (Ativan) 0.5 mg ONCE ONCE IV 06/22/17 22:00 06/22/17 22:01 DC PROCEDURE: XR Left Hip. CLINICAL INDICATION: Left hip pain. TECHNIQUE: Two views. Frontal and lateral. COMPARISON: No prior studies are available for comparison. FINDINGS: There is an acute left hip inferior neck fracture with marked varus deformity. There is no other fracture or dislocation. The soft tissues are normal. Articular surfaces are intact. There is lysis of the left inferior pubic ramus and ischial tuberosity with probable nondisplaced pathologic fracture at this site. There may be small lytic lesions of the proximal left femoral shaft. There is no radiopaque foreign body. IMPRESSION: 1. Acute left hip inferior neck fracture with marked varus deformity. 2. Lytic lesion of the left inferior pubic ramus and ischial tuberosity with probable nondisplaced pathologic fracture at this site. 3. Possible small lytic lesions of the proximal left femoral shaft. Call report: A call report of the findings was made to Dr. Killian Rolon on at 1800 hours. RPTAT: QQ .Damion Christopher MD, MD Date Time Electronically viewed and signed by .Damion Christopher MD, MD on 06/22/2017 18:24 .R/ CC: KILLIAN ROLON PROCEDURE: XR Femur. CLINICAL INDICATION: Left leg pain. TECHNIQUE: AP and lateral views of the left femur were performed. COMPARISON: No prior studies are available for comparison. FINDINGS: There is an acute left hip inferior neck fracture with marked varus deformity. There is no other fracture or dislocation. The soft tissues are normal. Articular surfaces are intact. There is lysis of the left inferior pubic ramus and ischial tuberosity with probable nondisplaced pathologic fracture at this site. There may be small lytic lesions of the proximal left femoral shaft. The remainder of the left femur is 10. There is no radiopaque foreign body. IMPRESSION: 1. Acute left hip inferior neck fracture with marked varus deformity. 2. Lytic lesion of the left inferior pubic ramus and ischial tuberosity with probable nondisplaced pathologic fracture at this site. 3. Possible small lytic lesions of the proximal left femoral shaft. Call report: A call report of the findings was made to Dr. Killian Rolon on at 1800 hours. RPTAT: QQ .Damion Christopher MD, MD Date Time Electronically viewed and signed by .Damion Christopher MD, MD on 06/22/2017 18:25 .R/ CC: KILLIAN ROLON BOLATITO M. Aug 22, 2017 22:44 .R/ CC: KILLIAN ROLON BOLATIT[place] M. Jun 22, 2017 22:44
[2017-06-22 22:45] VITALS: TEMP 98.5
[2017-06-22] MEDS ORDERED: ONDA-43 PO (22:48)
[2017-06-22] MEDS ORDERED: DOCU-144 PO (22:48)
[2017-06-22] MEDS ORDERED: HYDR2TAB3 PO (22:48)
[2017-06-22] MEDS ORDERED: METO25TA7 PO (22:49)
[2017-06-22] MEDS ORDERED: ALPR0.254 PO (22:49)
[2017-06-22] MEDS ORDERED: METH10SO PO (22:50)
[2017-06-22 23:00] VITALS: BP 150/82; PULSE 100; RESP 20; Ht 162.6 cm; Wt 38.6 kg
[2017-06-22] MEDS ORDERED: POTASSIUM CHLORIDE 250 ML IVPB ONE (23:00)
[2017-06-22] MEDS ORDERED: OXYCODONE/ACETAMINOPHEN (5/325) TAB PO PRN (23:00)
[2017-06-22] MEDS ORDERED: SOD CHLORIDE 0.9% 1,000 ML IV SCH (23:00)
[2017-06-23 04:00] VITALS: BP 131/74; RESP 20
[2017-06-23 07:49] LABS: ABNORMAL IP MESSAGE 1; BASOPHILS % 1.2 % (0.0-2.0); EOSINOPHILS # 0.1 10^3/ul (0.0-0.5); EOSINOPHILS % 4.3 % (0.0-7.0); HEMATOCRIT 32.8 % (37.0-47.0); HEMOGLOBIN 10.6 g/dl (12.0-16.0); LYMPHOCYTES # 0.6 10^3/ul (0.8-2.9); LYMPHOCYTES % 17.4 % (15.0-51.0); MEAN CORPUSCULAR HEMOGLOBIN 27.1 pg (29.0-33.0); MEAN CORPUSCULAR HGB CONC 32.3 g/dl (32.0-37.0); MEAN CORPUSCULAR VOLUME 83.9 fl (82.0-101.0); MEAN PLATELET VOLUME 8.5 fl (7.4-10.4); MONOCYTE # 0.4 10^3/ul (0.3-0.9); MONOCYTES % 13.1 % (0.0-11.0); NEUTROPHILS % 62.5 % (39.0-77.0); PLATELET COUNT 343 10^3/UL (140-415); RED BLOOD COUNT 3.91 10^6/ul (4.20-5.40); RED CELL DISTRIBUTION WIDTH 14.2 % (11.5-14.5); WHITE BLOOD COUNT 3.3 10^3/ul (4.8-10.8)
[2017-06-23 08:01] LABS: POSITIVE DIFF @See below
[2017-06-23 08:10] LABS: INR 1.09; PROTIME 14.1 Sec (12.2-14.2); PT RATIO 1.1
[2017-06-23 08:11] LABS: PARTIAL THROMBOPLASTIN TIME 32.8 Sec (25.0-35.0)
[2017-06-23 08:14] LABS: ALBUMIN 3.3 g/dl (3.3-4.9); BILIRUBIN,INDIRECT 0.2 mg/dl (0-1.1); BILIRUBIN,TOTAL 0.2 mg/dl (0.2-1.3); CALCIUM 9.8 mg/dl (8.4-10.2); CREATININE 0.72 mg/dl (0.44-1.00); MAGNESIUM 2.1 mg/dl (1.7-2.5); POTASSIUM 4.5 mmol/L (3.5-5.1); TOTAL PROTEIN 6.6 g/dl (6.1-8.1)
[2017-06-23 08:37] VITALS: BP 127/74; RESP 20
[2017-06-23] MEDS: DOCUSATE SODIUM 100 MG CAP PO SCH ×2 (08:37→21:00)
[2017-06-23] MEDS: SENNA TAB PO SCH (08:37)
[2017-06-23] MEDS ORDERED: ANASTROZOLE 1 MG TAB PO SCH (10:00)
--- NOTE | 2017-06-23 12:25 | PN ---
Date/Time of Note Date/Time of Note DATE: 06/23/17 TIME: 12:22 Assessment/Plan VTE Prophylaxis VTE Prophylaxis Intervention: LMWH Lines/Catheters IV Catheter Type (from Nrsg): Peripheral IV Assessment/Plan Assessment/Plan 1. Acute left hip pathologic fractures secondary to metastasis, follow up with ortho and oncology 2. Breast cancer with multiple bone metes, currently undergoing hip radiation for mets, but is planned for oral treatment with anticipation of good treatment response, follow up with oncology 3. DVT prophylaxis: lovenox Subjective 24 Hr Interval Summary Free Text/Dictation left leg pain Exam/Review of Systems Vital Signs Vitals Vital Signs Date Time Temp Pulse Resp B/P Pulse Ox O2 Delivery O2 Flow Rate FiO2 06/23/17 08:37 98.8 105 20 127/74 96 06/22/17 23:00 Room Air 06/22/17 21:00 2.0 Intake and Output 06/22/17 06/22/17 06/23/17 15:00 23:00 07:00 Intake Total 225 ml Balance 225 ml Exam Constitutional: alert, oriented, well developed Psych: nl mood/affect, no complaints Head: atraumatic, normocephalic Eyes: EOMI, PERRL, nl conjunctiva, nl lids ENMT: mucosa pink and moist, nl external ears & nose, nl lips & teeth, nl nasal mucosa & septum Neck: non-tender, supple Respiratory: clear to auscultation, normal air movement, No congested cough, No crackles/rales, No diminished breath sounds, No intercostal retraction, No labored breathing, No other, No respirations, No tactile fremitus, No wheezing Cardiovascular: nl pulses, regular rate and rhythm, No S3, No S4, No bruits, No diastolic murmur, No edema, No gallop, No irregular rhythm, No jugular venous distention (JVD), No murmurs/extra sounds, No other, No rub, No systolic murmur Gastrointestinal: nl liver, spleen, non-tender, soft, No ascites, No bowel sounds, No distended, No firm, No hepatomegaly, No mass , No other, No rebound or guarding, No splenomegaly, No surgical scars, No tender Musculoskeletal: nl extremities to inspection Extremities: normal pulses, No calf tenderness, No clubbing, No cyanosis, No edema, No other, No palpable cord, No pitting pedal edema 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, nl mental status, nl speech, nl strength Skin: nl turgor Results Result Diagram: 06/23/17 0650 06/23/17 0650 Results 24 hrs Laboratory Tests Test 06/22/17 20:38 06/23/17 06:50 White Blood Count 5.0 3.3 #L Red Blood Count 4.55 3.91 L Hemoglobin 12.2 10.6 L Hematocrit 38.3 32.8 L Mean Corpuscular Volume 84.2 83.9 Mean Corpuscular Hemoglobin 26.8 L 27.1 L Mean Corpuscular Hemoglobin Concent 31.9 L 32.3 Red Cell Distribution Width 13.9 14.2 Platelet Count 409 343 Mean Platelet Volume 8.4 8.5 Neutrophils % 66.0 62.5 Lymphocytes % 18.1 17.4 Monocytes % 10.3 13.1 H Eosinophils % 3.0 4.3 Basophils % 0.8 1.2 Nucleated Red Blood Cells % 0.0 0.0 Neutrophils # (Manual) 3 2 Lymphocytes # 0.9 0.6 L Monocytes # 0.5 0.4 Eosinophils # 0.2 0.1 Basophils # 0.0 0.0 Nucleated Red Blood Cells # 0.0 0.0 Sodium Level 144 146 H Potassium Level 3.3 L 4.5 Chloride Level 96 L 104 Carbon Dioxide Level 30 30 Anion Gap 21 H 17 H Blood Urea Nitrogen 22 H 21 H Creatinine 0.84 0.72 Glucose Level 94 89 Calcium Level 10.3 H 9.8 Prothrombin Time 14.1 Prothrombin Time Ratio 1.1 INR International Normalized Ratio 1.09 Activated Partial Thromboplast Time 32.8 Phosphorus Level 4.0 Magnesium Level 2.1 Total Bilirubin 0.2 Direct Bilirubin 0.00 Indirect Bilirubin 0.2 Aspartate Amino Transf (AST/SGOT) 45 Alanine Aminotransferase (ALT/SGPT) 36 Alkaline Phosphatase 152 H Total Protein 6.6 Albumin 3.3 Medications Medications Current Medications Oxycodone/ Acetaminophen (Percocet (5/ 325)) 1 tab Q6H PRN PO pain; Start 06/22 at 23:00 Morphine Sulfate (morphine) 2 mg Q4H PRN IV breakthrough pain; Start 06/22/17 at 23:00 Docusate Sodium (Colace) 100 mg BID PO Last administered on 06/23/17 08:37; Admin Dose 100 MG; Start 06/23/17 at 09:00 Senna (Senokot) 1 tab DAILY PO Last administered on 06/23/17 08:37; Admin Dose 1 TAB; Start 06/23/17 at 09:00 Ondansetron HCl (Zofran Inj) 4 mg Q6H PRN IV NAUSEA AND/OR VOMITING; Start at 23:00 Enoxaparin Sodium (Lovenox) 40 mg DAILY SC ; Start 06/23/17 at 10:00 Famotidine (Pepcid) 20 mg BID PO ; Start 06/23/17 at 12:00 CAITLIN MONTOYA MD Jun 23, 2017 12:24
[2017-06-23] MEDS: FAMOTIDINE 20 MG TAB PO SCH ×2 (12:41→21:00)
--- NOTE | 2017-06-23 12:41 | RADRPT ---
PROCEDURE: Chest xray. CLINICAL INDICATION: Preop. TECHNIQUE: A portable semi-erect AP view of the chest was obtained. COMPARISON: None. FINDINGS: The cardiomediastinal silhouette is within normal limits. The lungs are well expanded and show norm al vascularity. No focal opacity, pleural effusion, or pneumothorax is identified. There is mild de xtroconvex curvature of the thoracic spine. The soft tissues are unremarkable. IMPRESSION: No acute intrathoracic abnormality. RPTAT:PP .Chloe Killian MD, MD Date Time Electronically viewed and signed by .Chloe Killian MD, MD on 06/23/2017 12:40 .K/
[2017-06-23] MEDS: ENOXAPARIN 40 MG/0.4 ML SYG SC SCH (12:52)
[2017-06-23 15:00] VITALS: BP 146/80; RESP 20
[2017-06-23] MEDS ORDERED: BARIUM SULF 2% 450 ML BTL (BERRY SMOOTHIE) PO ONE (18:00)
[2017-06-23] MEDS: morphine 2 MG INJ IV PRN (18:57)
[2017-06-23 19:03] VITALS: BP 134/94; PULSE 103
[2017-06-23 19:36] VITALS: BP 133/69; RESP 18
--- NOTE | 2017-06-23 22:10 | RADRPT ---
AMENDMENT: 07/03/2017 11:38:02 PM Radha Hsieh M.D One or more of the following dose reduction techniques were used: - Automated exposure control. - Adjustment of the mA and/or kV according to patient size. - Use of iterative reconstruction technique. PROCEDURE: CT left hip without contrast CLINICAL INDICATION: 61 years of age, female. Left hip fracture. History of metastatic breast can cer. TECHNIQUE: A noncontrast CT of the left hip was performed. Coronal and sagittal reformats were ge nerated. CTDIvol: 18.4 mGy. DLP: 564 mGy-cm. COMPARISON: Left hip x-ray June 22, 2017 and spine MRI June 02, 2017 FINDINGS: There is an acute fracture of the left femoral neck that is complete with foreshortening and varus a ngulation. Fracture is similar to the recent x-ray. Negative for an associated soft tissue mass. Negative for evidence of bony destruction. Left hip is in joint. There is a small left hip joint e ffusion.. Bones are osteopenic and there are multiple lytic bone lesions in keeping with metastases. There is a lytic lesion in the inferior femoral head. There are multiple lytic lesions in the anterior post erior keller of the left acetabulum and in the left ischium. Dominant lytic lesion in the left ischi um is associated with bony destruction and a small extraosseous mass. This bone lesion measures 1.7 x 3.5 cm (4/38). There is replacement of the fatty bone marrow in the anterior mid femoral shaft w ith soft tissue concerning for metastatic disease (4/115). The anterior cortex is mildly thinned in this location.. There are varicose veins in the subcutaneous fat of the posterior left leg. IMPRESSION: Acute fracture of the left femoral neck that is complete with foreshortening and varus angulation. It is unclear if this is a pathologic fracture or a fracture related to trauma and osteoporosis. Ne gative for evidence of a soft tissue mass or bony destruction to indicate pathologic fracture. Maza bon, there are multiple additional bone metastases in this patient with metastatic breast cancer. Multiple lytic metastases involving the left acetabulum, ischium, femoral head and mid femoral shaft . RPTAT: HCTS Leonidas Hsieh, Physician Date Time Electronically viewed and signed by Leonidas Hsieh Physician on 07/03/2017 23:39 CS/
--- NOTE | 2017-06-23 22:22 | RADRPT ---
AMENDMENT: 07/03/2017 11:58:23 PM Radha Hsieh M.D One or more of the following dose reduction techniques were used: - Automated exposure control. - Adjustment of the mA and/or kV according to patient size. - Use of iterative reconstruction technique. PROCEDURE: CT Pelvis without contrast. CLINICAL INDICATION: 61 years of age, female. Left hip fracture. Metastatic breast cancer.. TECHNIQUE: A CT scan of the pelvis was performed without intravenous contrast. Coronal and sagitta l reformatted images were obtained from the axial source images. Images were reviewed on a [employer] PACS workstation. CTDIvol: 3.6 mGy. DLP: 111 mGy-cm. COMPARISON: CT left hip from the same day and left hip x-rays June 22, 2017 FINDINGS: There are multiple lytic bone lesions throughout the bony pelvis in keeping with metastatic disease or multiple myeloma. Several of the lesions demonstrate cortical thinning with endosteal scalloping. Sample lesions include a 1.6 cm lesion in the right acetabular tectum (3/56) and 1.7 cm lesion in the left iliac wing (3/30). The largest lesion is in the left ischium and is described on the left hip CT. It measures 1.8 x 3.9 cm with cortical breakthrough and a small extraosseous soft tissue ma ss. Negative for evidence of acute fracture in the bony pelvic ring. Symphysis pubis and sacroilia c joints are unremarkable. Right hip is in joint. There are lytic lesions involving the right femoral head and acetabulum. A lesion in the anterior femoral head measures 1.4 cm. Negative for evidence of acute fracture of the right hip. Left femoral neck fracture and lytic bone lesions involving the left hip are described on left hip C T reported separately. There is bony sclerosis in the lower lumbar spine at L4 that may be seen with treated metastases. A 0.8 cm hypodense lesion in the inferior right hepatic lobe is incompletely characterized (3/14). Limited imaging of the pelvis is unremarkable. There is a small fat containing left indirect inguin al hernia. IMPRESSION: Left femoral neck fracture with foreshortening and varus angulation is described on left hip CT repo rted separately. Multiple lytic bone lesions in the bony pelvis and bilateral hips are present. They likely represen t metastatic breast cancer in this clinical setting. Multiple myeloma could appear similar. Osteopenia. 0.8 cm liver lesion is incompletely characterized but could represent a metastasis in this clinical setting. RPTAT: HCTS Leonidas Hsieh, Physician Date Time Electronically viewed and signed by Leonidas Hsieh Physician on 07/03/2017 23:59 /
--- NOTE | 2017-06-23 23:47 | CONS ---
Date/Time of Note Date/Time of Note DATE: 06/23/17 TIME: 23:29 Assessment/Plan Assessment/Plan Chief Complaint/Hosp Course 61 yo with L breast mass with widespread disease on CT scan which demonstrates subcutaneous stranding within the right breast with a deep fluid collection measuring 4.7 x 1.2 cm , as well as diffuse sclerotic mets, mild pathologic compression of C7, T2, T4, T8 and T10 vertebral bodies as well as a prominent R axillary LN. Extensive family discussion was had with son and patient who understand she has STAGE IV disease. They understand she may need chemotherapy vs targeted therapy but these decisions will made once the IHC stains have come back. #Breast mass -this is now confirmed as breast cancer. immunohistochemistry stains are pending which will help determine what treatment is to be given. -patient is ER+/MA+/Her2 negative breast with bone only mets -I plan to start her on an aromatase inhibitor with Ibrance targeted therapy as an outpatient once radiation begins. Patient with bone only disease can have quite a good and durable response to hormone deprivation therapy. As such I expect this patient to respond well to therapy #L femoral neck fracture -although patient has incurable disease, she has chronic metastatic breast ca to the bones which can be controlled with oral therapy -appreciate orthopedic surgery input as to how and if we can surgically stabilize her femoral fracture to help palliate this patient's pain. AT this time, it does not appear she can weight bare on that extremity -plan would be to radiate the femoral neck after surgery if and when cleared by orthopedic surgery #Back Pain - -pt is currently undergoing radiation treatment to spine. will clarify with rad onc exactly where they are radiating #Bone Mets -pt received 1 dose of bisphosphonate therapy during the last admission -will continue this on a q month basis Problems: Consultation Date/Type/Reason Admit Date/Time 06/22/17 Date of Consultation: Jun 23, 2017 Type of Consultation: Oncology Reason for Consultation metastatic breast cancer Referring Provider: DAMASO KHAN Hx of Present Illness 61-year-old female with no reported past medical history who first presented to [facility] in May with L lower back pain and L leg pain x 2 months. Pt also endorsed a growing L sided breast mass x 2 months as well. She has lost significant weight over this time. A lumbar CT scan that did show her to have probable widespread bony metastatic disease with minor end plate depressions at multiple levels of approximately 55% probable compression fracture of T10. She has since undergone a right breast mass biopsy which confirms ER+ > 99%, MA > 30% and her 2 negative disease. Scans during her last visit noted side spread bony metastasis most notably in the sacrum , Tspine and Left femoral neck fracture . Given patient's lower back pain, she is currently being treated with radiation to the sacrum. Although she was noted to have pathologic L femoral neck fracture. Pt has since been admitted for evaluation and treatment of L femoral neck fracture. Constitutional: poor po Eyes: no complaints ENT: no complaints Respiratory: shortness of breath Cardiovascular: no complaints Gastrointestinal: no complaints Musculoskeletal: back pain, bone/joint pain Psychological: nl mood/affect, no complaints Past Medical History Medical History: no pertinent history Family History Significant Family History: no pertinent family hx Social History Alcohol Use: none Smoking Status: Never smoker Drug Use: none Exam/Review of Systems Vital Signs Vitals Vital Signs Date Time Temp Pulse Resp B/P Pulse Ox O2 Delivery O2 Flow Rate FiO2 06/23/17 19:36 99.1 101 18 133/69 96 06/23/17 19:03 Room Air 06/22/17 21:00 2.0 Intake and Output 06/22/17 06/22/17 06/23/17 15:00 23:00 07:00 Intake Total 225 ml Balance 225 ml Exam Constitutional: frail Psych: depression Head: normocephalic Eyes: nl conjunctiva ENMT: nl external ears & nose Neck: non-tender, supple Respiratory: clear to auscultation Cardiovascular: regular rate and rhythm Musculoskeletal: joint tenderness, muscle tone, muscle weakness Results Result Diagram: 06/23/17 0650 06/23/17 0650 Results 24 hrs Laboratory Tests Test 06/23/17 06:50 White Blood Count 3.3 #L Red Blood Count 3.91 L Hemoglobin 10.6 L Hematocrit 32.8 L Mean Corpuscular Volume 83.9 Mean Corpuscular Hemoglobin 27.1 L Mean Corpuscular Hemoglobin Concent 32.3 Red Cell Distribution Width 14.2 Platelet Count 343 Mean Platelet Volume 8.5 Neutrophils % 62.5 Lymphocytes % 17.4 Monocytes % 13.1 H Eosinophils % 4.3 Basophils % 1.2 Nucleated Red Blood Cells % 0.0 Neutrophils # (Manual) 2 Lymphocytes # 0.6 L Monocytes # 0.4 Eosinophils # 0.1 Basophils # 0.0 Nucleated Red Blood Cells # 0.0 Prothrombin Time 14.1 Prothrombin Time Ratio 1.1 INR International Normalized Ratio 1.09 Activated Partial Thromboplast Time 32.8 Sodium Level 146 H Potassium Level 4.5 Chloride Level 104 Carbon Dioxide Level 30 Anion Gap 17 H Blood Urea Nitrogen 21 H Creatinine 0.72 Glucose Level 89 Calcium Level 9.8 Phosphorus Level 4.0 Magnesium Level 2.1 Total Bilirubin 0.2 Direct Bilirubin 0.00 Indirect Bilirubin 0.2 Aspartate Amino Transf (AST/SGOT) 45 Alanine Aminotransferase (ALT/SGPT) 36 Alkaline Phosphatase 152 H Total Protein 6.6 Albumin 3.3 Medications Medications Current Medications Oxycodone/ Acetaminophen (Percocet (5/ 325)) 1 tab Q6H PRN PO pain; Start 06/22 at 23:00 Morphine Sulfate (morphine) 2 mg Q4H PRN IV breakthrough pain Last administered on 06/23/17 18:57; Admin Dose 2 MG; Start 06/22/17 at 23:00 Docusate Sodium (Colace) 100 mg BID PO Last administered on 06/23/17 08:37; Admin Dose 100 MG; Start 06/23/17 at 09:00 Senna (Senokot) 1 tab DAILY PO Last administered on 06/23/17 08:37; Admin Dose 1 TAB; Start 06/23/17 at 09:00 Ondansetron HCl (Zofran Inj) 4 mg Q6H PRN IV NAUSEA AND/OR VOMITING; Start at 23:00 Enoxaparin Sodium (Lovenox) 40 mg DAILY SC Last administered on 06/23/17 12:52 ; Admin Dose 40 MG; Start 06/23/17 at 10:00 Famotidine (Pepcid) 20 mg BID PO Last administered on 06/23/17 12:41; Admin Dose 20 MG; Start 06/23/17 at 12:00 ZELDA ASHTON M.D. Jun 23, 2017 23:47
[2017-06-24 01:40] VITALS: BP 138/72; RESP 18
--- NOTE | 2017-06-24 04:18 | CONS ---
DATE OF ADMISSION: 06/22/2017 DATE OF CONSULTATION: 06/23/2017 CHIEF COMPLAINT: Left hip pain. HISTORY OF PRESENT ILLNESS: This is a 61-year-old female with a recently diagnosed history of stage IV metastatic breast cancer, undergoing radiation therapy. According to her brother, she was ambulating when she felt pain in her left hip. She denies any history of trauma or falls. The pain is in her left groin. She is a community ambulator. She denies any other history of trauma. PAST MEDICAL HISTORY: Stage IV metastatic breast cancer with current radiation. MEDICATIONS: None. PAST SURGICAL HISTORY: None. SOCIAL HISTORY: Patient denies tobacco, alcohol, or drug use. FAMILY HISTORY: None. ALLERGIES: NO KNOWN DRUG ALLERGIES. REVIEW OF SYSTEMS: Negative except per HPI. PHYSICAL EXAMINATION: VITAL SIGNS: 98.5, 146/80, pulse of 109, respiratory rate of 20. GENERAL: Patient is resting comfortably in bed, in no acute distress. EXTREMITIES: Left lower extremity: There are no open wounds. Patient has pain with axial loading. She is neurovascularly intact with 5/5 function of her gastroc soleus, tibialis anterior. She has intact sensation throughout the left lower extremity with palpable pulses. IMAGING: X-rays of the hip: There is a left femoral neck fracture. There is also a fracture of the inferior pubic rami. The left hip is in varus position. There is also a questionable lytic lesion within the anterior trochanteric region. IMPRESSION: A 61-year-old female with recently diagnosed history of metastatic breast cancer, and a left femoral neck pathologic fracture. PLAN: I discussed treatment options with the patient and her family. I explained to the patient and her family that she would require a left hip hemiarthroplasty for ambulation. I also discussed the risks associated with surgery, which include, but are not limited to, infection, deep venous thrombosis, pulmonary embolism, damage to neurovascular structures, heart attack, stroke, and even . I also discussed with the patient that she is currently undergoing radiation, and therefore, is at a high risk for wound dehiscence, and infection. The patient is currently undergoing radiation tonight. At this time, we would have to hold surgery until radiation is completed. I will continue to follow the patient along. All questions have been answered to her satisfaction. Dictated By: Isha Marcelino MD /[email or web address]/[email or web address] /Document#: [id number]
[2017-06-24 07:39] LABS: BASOPHILS % 0.7 % (0.0-2.0); EOSINOPHILS # 0.2 10^3/ul (0.0-0.5); EOSINOPHILS % 4.2 % (0.0-7.0); HEMOGLOBIN 10.9 g/dl (12.0-16.0); LYMPHOCYTES # 0.7 10^3/ul (0.8-2.9); LYMPHOCYTES % 16.9 % (15.0-51.0); MEAN CORPUSCULAR HEMOGLOBIN 26.7 pg (29.0-33.0); MEAN CORPUSCULAR HGB CONC 32.1 g/dl (32.0-37.0); MEAN CORPUSCULAR VOLUME 83.3 fl (82.0-101.0); MEAN PLATELET VOLUME 8.3 fl (7.4-10.4); MONOCYTE # 0.5 10^3/ul (0.3-0.9); MONOCYTES % 13.4 % (0.0-11.0); NEUTROPHILS % 63.1 % (39.0-77.0); PLATELET COUNT 312 10^3/UL (140-415); RED BLOOD COUNT 4.08 10^6/ul (4.20-5.40); RED CELL DISTRIBUTION WIDTH 14.2 % (11.5-14.5)
[2017-06-24 08:03] VITALS: BP 131/77; RESP 22
--- NOTE | 2017-06-24 08:18 | PN ---
Date/Time of Note Date/Time of Note DATE: 06/24/17 TIME: 08:13 Assessment/Plan Lines/Catheters IV C[facility]ter [facility] (from [facility]): Peripheral IV Assessment/Plan Assessment/Plan I reviewed the CT of pelvis, and left lower extremity. Patient has metastasis to ischium, acetabulum, femoral neck, and femoral shaft. Patient is currently receiving radiation. I spoke with patient and her family. I explained to them that she is at high risk of DVT, PE, wound healing problems due to radiation as well as prosthesis loosening. She requires higher level of care, transfer to a tertiary center for treatment with orthopaedic surgery oncologist due to extent of metastasis. I spoke to Dr. Rehman. Subjective 24 Hr Interval Summary Patient is comfortable. No complaints. Exam/Review of Systems Vital Signs Vitals Vital Signs Date Time Temp Pulse Resp B/P Pulse Ox O2 Delivery O2 Flow Rate FiO2 06/24/17 08:03 98.8 109 22 131/77 98 06/23/17 19:03 Room Air 06/22/17 21:00 2.0 Intake and Output 06/23/17 06/23/17 06/24/17 15:00 23:00 07:00 Intake Total 1865 ml 120 ml Balance 1865 ml 120 ml Results Result Diagram: 06/24/17 0712 06/23/17 0650 KAREN MORALEZ MD Jun 24, 2017 08:18
[2017-06-24 08:40] LABS: CALCIUM 9.5 mg/dl (8.4-10.2); CREATININE 0.66 mg/dl (0.44-1.00); POTASSIUM 3.5 mmol/L (3.5-5.1)
[2017-06-24] MEDS: DOCUSATE SODIUM 100 MG CAP PO SCH ×2 (09:00→20:30)
[2017-06-24] MEDS: SENNA TAB PO SCH (09:00)
[2017-06-24] MEDS: FAMOTIDINE 20 MG TAB PO SCH ×2 (09:00→20:30)
--- NOTE | 2017-06-24 13:44 | PN ---
Date/Time of Note Date/Time of Note DATE: 06/24/17 TIME: 13:39 Assessment/Plan VTE Prophylaxis VTE Prophylaxis Intervention: LMWH Lines/Catheters IV Catheter Type (from Nrsg): Peripheral IV Assessment/Plan Assessment/Plan 1. Acute left hip pathologic fractures secondary to metastasis, reviewed Dr. Agrawal's note, recommends high level of care, case work aide for transfer to higher level of care 2. Breast cancer with multiple bone metes, currently undergoing hip radiation for mets, but is planned for oral treatment with anticipation of good treatment response, follow up with oncology 3. DVT prophylaxis: lovenox Exam/Review of Systems Vital Signs Vitals Vital Signs Date Time Temp Pulse Resp B/P Pulse Ox O2 Delivery O2 Flow Rate FiO2 06/24/17 08:03 98.8 109 22 131/77 98 06/23/17 19:03 Room Air 06/22/17 21:00 2.0 Intake and Output 06/23/17 06/23/17 06/24/17 15:00 23:00 07:00 Intake Total 1865 ml 120 ml Balance 1865 ml 120 ml Exam Constitutional: alert, frail, oriented Psych: nl mood/affect, no complaints Head: atraumatic, normocephalic Eyes: EOMI, nl conjunctiva, nl lids ENMT: nl external ears & nose, nl lips & teeth, nl nasal mucosa & septum Neck: non-tender, supple Respiratory: clear to auscultation, normal air movement, No congested cough, No crackles/rales, No diminished breath sounds, No intercostal retraction, No labored breathing, No other, No respirations, No tactile fremitus, No wheezing Cardiovascular: nl pulses, regular rate and rhythm, No S3, No S4, No bruits, No diastolic murmur, No edema, No gallop, No irregular rhythm, No jugular venous distention (JVD), No murmurs/extra sounds, No other, No rub, No systolic murmur Gastrointestinal: nl liver, spleen, non-tender, soft, No ascites, No bowel sounds, No distended, No firm, No hepatomegaly, No mass , No other, No rebound or guarding, No splenomegaly, No surgical scars, No tender Musculoskeletal: nl extremities to inspection Extremities: normal pulses, No calf tenderness, No clubbing, No cyanosis, No edema, No other, No palpable cord, No pitting pedal edema, No tenderness Neurological: BAFFLE MOUNTER II-XII intact, nl mental status, nl speech, nl strength Results Result Diagram: 06/24/1712 06/24/17 0712 Results 24 hrs Laboratory Tests Test 06/24/17 07:12 White Blood Count 4.0 #L Red Blood Count 4.08 L Hemoglobin 10.9 L Hematocrit 34.0 L Mean Corpuscular Volume 83.3 Mean Corpuscular Hemoglobin 26.7 L Mean Corpuscular Hemoglobin Concent 32.1 Red Cell Distribution Width 14.2 Platelet Count 312 Mean Platelet Volume 8.3 Neutrophils % 63.1 Lymphocytes % 16.9 Monocytes % 13.4 H Eosinophils % 4.2 Basophils % 0.7 Nucleated Red Blood Cells % 0.0 Neutrophils # (Manual) 3 Lymphocytes # 0.7 L Monocytes # 0.5 Eosinophils # 0.2 Basophils # 0.0 Nucleated Red Blood Cells # 0.0 Sodium Level 139 Potassium Level 3.5 Chloride Level 102 Carbon Dioxide Level 26 Anion Gap 15 Blood Urea Nitrogen 13 Creatinine 0.66 Glucose Level 77 Calcium Level 9.5 Medications Medications Current Medications Oxycodone/ Acetaminophen (Percocet (5/ 325)) 1 tab Q6H PRN PO pain; Start 06/22 at 23:00 Morphine Sulfate (morphine) 2 mg Q4H PRN IV breakthrough pain Last administered on 06/23/17 18:57; Admin Dose 2 MG; Start 06/22/17 at 23:00 Docusate Sodium (Colace) 100 mg BID PO Last administered on 06/23/17 08:37; Admin Dose 100 MG; Start 06/23/17 at 09:00 Senna (Senokot) 1 tab DAILY PO Last administered on 06/23/17 08:37; Admin Dose 1 TAB; Start 06/23/17 at 09:00 Ondansetron HCl (Zofran Inj) 4 mg Q6H PRN IV NAUSEA AND/OR VOMITING; Start at 23:00 Enoxaparin Sodium (Lovenox) 40 mg DAILY SC Last administered on 06/23/17 12:52 ; Admin Dose 40 MG; Start 06/23/17 at 10:00 Famotidine (Pepcid) 20 mg BID PO Last administered on 8/23/17at 12:41; Admin Dose 20 MG; Start 06/23/17 at 12:00 CAITLIN MONTOYA MD Jun 24, 2017 13:44
[2017-06-24 14:00] VITALS: BP 135/83; RESP 20
[2017-06-24] MEDS: ENOXAPARIN 40 MG/0.4 ML SYG SC SCH (14:20)
[2017-06-24 19:43] VITALS: BP 127/66; RESP 20
[2017-06-24] MEDS: morphine 2 MG INJ IV PRN (20:30)
[2017-06-24] MEDS: ONDANSETRON 4 MG INJ IV PRN (20:30)
--- NOTE | 2017-06-24 21:51 | CONS ---
Date/Time of Note Date/Time of Note DATE: 06/24/17 TIME: 21:46 Assessment/Plan Assessment/Plan Chief Complaint/Hosp Course 61 yo with L breast mass with widespread disease on CT scan which demonstrates subcutaneous stranding within the right breast with a deep fluid collection measuring 4.7 x 1.2 cm , as well as diffuse sclerotic mets, mild pathologic compression of C7, T2, T4, T8 and T10 vertebral bodies as well as a prominent R axillary LN. Extensive family discussion was had with son and patient who understand she has STAGE IV disease. They understand she may need chemotherapy vs targeted therapy but these decisions will made once the IHC stains have come back. #Breast mass -this is now confirmed as breast cancer. immunohistochemistry stains are pending which will help determine what treatment is to be given. 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 Patient with bone only disease can have quite a good and durable response to hormone deprivation therapy. As such I expect this patient to respond well to therapy #L femoral neck fracture -pt is s/p evaluation by orthopedic surgery who notes the large extent of fracture through ischium, acetabulum, femoral neck, and femoral shaft. -given this cannot be done at this [facility] hospital, pt will need evaluation at a tertiary care center -plan would be to radiate the femoral neck after surgery if and when cleared by orthopedic surgery #Back Pain - -pt is currently undergoing radiation treatment to spine. will clarify with rad onc exactly where they are radiating #Bone Mets -pt received 1 dose of bisphosphonate therapy during the last admission -will continue this on a q month basis Problems: Consultation Date/Type/Reason Admit Date/Time Jun 22, 2017 at 21:32 Initial Consult Date 06/23/17 Type of Consultation: Oncology Reason for Consultation metastatic breast cancer to bones Referring Provider: DAMASO KHAN 24 HR Interval Summary Free Text/Dictation patient's pain is currently under control. continues to receive radiation . pt has been evaluated by orthopedic surgery. Exam/Review of Systems Vital Signs Vitals Vital Signs Date Time Temp Pulse Resp B/P Pulse Ox O2 Delivery O2 Flow Rate FiO2 06/24/17 19:43 99.0 106 20 127/66 96 06/23/17 19:03 Room Air 06/22/17 21:00 2.0 Intake and Output 06/23/17 06/23/17 06/24/17 15:00 23:00 07:00 Intake Total 1865 ml 120 ml Balance 1865 ml 120 ml Exam Constitutional: alert, oriented Psych: no complaints Head: normocephalic Eyes: nl conjunctiva ENMT: nl external ears & nose Neck: non-tender, supple Respiratory: clear to auscultation Cardiovascular: regular rate and rhythm Gastrointestinal: soft Musculoskeletal: joint tenderness, muscle weakness Results Result Diagram: 06/24/17 0712 06/24/17 0712 Results 24 hrs Laboratory Tests Test 06/24/17 07:12 White Blood Count 4.0 #L Red Blood Count 4.08 L Hemoglobin 10.9 L Hematocrit 34.0 L Mean Corpuscular Volume 83.3 Mean Corpuscular Hemoglobin 26.7 L Mean Corpuscular Hemoglobin Concent 32.1 Red Cell Distribution Width 14.2 Platelet Count 312 Mean Platelet Volume 8.3 Neutrophils % 63.1 Lymphocytes % 16.9 Monocytes % 13.4 H Eosinophils % 4.2 Basophils % 0.7 Nucleated Red Blood Cells % 0.0 Neutrophils # (Manual) 3 Lymphocytes # 0.7 L Monocytes # 0.5 Eosinophils # 0.2 Basophils # 0.0 Nucleated Red Blood Cells # 0.0 Sodium Level 139 Potassium Level 3.5 Chloride Level 102 Carbon Dioxide Level 26 Anion Gap 15 Blood Urea Nitrogen 13 Creatinine 0.66 Glucose Level 77 Calcium Level 9.5 Medications Medications Current Medications Oxycodone/ Acetaminophen (Percocet (5/ 325)) 1 tab Q6H PRN PO pain; Start 06/22 at 23:00 Morphine Sulfate (morphine) 2 mg Q4H PRN IV breakthrough pain Last administered on 06/24/17 20:30; Admin Dose 2 MG; Start 06/22/17 at 23:00 Docusate Sodium (Colace) 100 mg BID PO Last administered on 06/24/17 20:30; Admin Dose 100 MG; Start 06/23/17 at 09:00 Senna (Senokot) 1 tab DAILY PO Last administered on 06/23/17 08:37; Admin Dose 1 TAB; Start 06/23/17 at 09:00 Ondansetron HCl (Zofran Inj) 4 mg Q6H PRN IV NAUSEA AND/OR VOMITING Last administered on 06/24/17 20:30; Admin Dose 4 MG; Start 06/22/17 at 23:00 Enoxaparin Sodium (Lovenox) 40 mg DAILY SC Last administered on 06/24/17 14:20 ; Admin Dose 40 MG; Start 06/23/17 at 10:00 Famotidine (Pepcid) 20 mg BID PO Last administered on 06/24/17 20:30; Admin Dose 20 MG; Start 06/23/17 at 12:00 ZELDA ASHTON M.D. Jun 24, 2017 21:51
[2017-06-25 01:51] VITALS: BP 125/67; RESP 20
[2017-06-25 07:41] VITALS: BP 130/69; RESP 18
[2017-06-25] MEDS: DOCUSATE SODIUM 100 MG CAP PO SCH ×3 (08:41→21:00)
[2017-06-25] MEDS: SENNA TAB PO SCH (08:41)
[2017-06-25 08:47] LABS: ABNORMAL IP MESSAGE 1; BASOPHILS % 0.8 % (0.0-2.0); EOSINOPHILS # 0.1 10^3/ul (0.0-0.5); EOSINOPHILS % 3.8 % (0.0-7.0); HEMATOCRIT 36.1 % (37.0-47.0); HEMOGLOBIN 11.5 g/dl (12.0-16.0); LYMPHOCYTES # 0.5 10^3/ul (0.8-2.9); LYMPHOCYTES % 12.8 % (15.0-51.0); MEAN CORPUSCULAR HEMOGLOBIN 26.4 pg (29.0-33.0); MEAN CORPUSCULAR HGB CONC 31.9 g/dl (32.0-37.0); MEAN PLATELET VOLUME 8.8 fl (7.4-10.4); MONOCYTE # 0.6 10^3/ul (0.3-0.9); MONOCYTES % 15.2 % (0.0-11.0); NEUTROPHILS % 65.5 % (39.0-77.0); PLATELET COUNT 324 10^3/UL (140-415); RED BLOOD COUNT 4.35 10^6/ul (4.20-5.40); RED CELL DISTRIBUTION WIDTH 14.4 % (11.5-14.5); WHITE BLOOD COUNT 3.7 10^3/ul (4.8-10.8)
[2017-06-25] MEDS: FAMOTIDINE 20 MG TAB PO SCH ×3 (08:48→21:00)
[2017-06-25] MEDS: ENOXAPARIN 40 MG/0.4 ML SYG SC SCH (08:54)
[2017-06-25 09:03] LABS: CALCIUM 9.8 mg/dl (8.4-10.2); CREATININE 0.63 mg/dl (0.44-1.00); POTASSIUM 3.6 mmol/L (3.5-5.1)
--- NOTE | 2017-06-25 10:14 | CONS ---
Date/Time of Note Date/Time of Note DATE: 06/25/17 TIME: 10:12 Assessment/Plan Assessment/Plan Chief Complaint/Hosp Course 61 yo with L breast mass with widespread disease on CT scan which demonstrates subcutaneous stranding within the right breast with a deep fluid collection measuring 4.7 x 1.2 cm , as well as diffuse sclerotic mets, mild pathologic compression of C7, T2, T4, T8 and T10 vertebral bodies as well as a prominent R axillary LN. Extensive family discussion was had with son and patient who understand she has STAGE IV disease. They understand she may need chemotherapy vs targeted therapy but these decisions will made once the IHC stains have come back. #Breast mass -this is now confirmed as breast cancer. immunohistochemistry stains are pending which will help determine what treatment is to be given. -patient is ER+/MO+/Her2 negative breast with bone only mets -I plan to start her on an aromatase inhibitor with Ibrance targeted therapy as an outpatient once radiation is completed. Patient with bone only disease can have quite a good and durable response to hormone deprivation therapy. As such I expect this patient to respond well to therapy #L femoral neck fracture -pt is s/p evaluation by orthopedic surgery who notes the large extent of fracture through ischium, acetabulum, femoral neck, and femoral shaft. -[facility], pt will need evaluation at a tertiary care center -plan would be to radiate the femoral neck after surgery if and when cleared by orthopedic surgery #Back Pain - -pt is currently undergoing radiation treatment to spine. will clarify with rad onc exactly where they are radiating #Bone Mets -pt received 1 dose of bisphosphonate therapy during the last admission -will continue this on a q month basis Problems: Problems: (1) Metastatic breast cancer Status: Acute (2) Pathological fracture of left hip Status: Acute Qualifiers: Pathology associated with fracture: unspecified disease Encounter type: initial encounter Qualified Code: M84.452A - Pathological fracture of left hip , unspecified pathological cause, initial encounter Consultation Date/Type/Reason Admit Date/Time Jun 22, 2017 at 21:32 Initial Consult Date 06/23/17 Type of Consultation: Oncology Reason for Consultation metastatic breast ca to bones Referring Provider: DAMASO KHAN 24 HR Interval Summary Free Text/Dictation states pain is currently under control. continues to go to radiation daily Exam/Review of Systems Vital Signs Vitals Vital Signs Date Time Temp Pulse Resp B/P Pulse Ox O2 Delivery O2 Flow Rate FiO2 06/25/17 07:41 99.0 108 18 130/69 95 06/23/17 19:03 Room Air 06/22/17 21:00 2.0 Intake and Output 06/24/17 06/24/17 06/25/17 15:00 23:00 07:00 Intake Total 360 ml 120 ml Balance 360 ml 120 ml Exam Constitutional: alert, frail, oriented Head: normocephalic Eyes: nl conjunctiva ENMT: nl external ears & nose Neck: non-tender, supple Respiratory: clear to auscultation Cardiovascular: nl pulses, regular rate and rhythm Gastrointestinal: soft Musculoskeletal: muscle weakness, nl extremities to inspection, nl gait and stance Results Result Diagram: 06/25/17 0753 06/25/17 0753 Results 24 hrs Laboratory Tests Test 06/25/17 07:53 White Blood Count 3.7 L Red Blood Count 4.35 Hemoglobin 11.5 L Hematocrit 36.1 L Mean Corpuscular Volume 83.0 Mean Corpuscular Hemoglobin 26.4 L Mean Corpuscular Hemoglobin Concent 31.9 L Red Cell Distribution Width 14.4 Platelet Count 324 Mean Platelet Volume 8.8 Neutrophils % 65.5 Lymphocytes % 12.8 L Monocytes % 15.2 H Eosinophils % 3.8 Basophils % 0.8 Nucleated Red Blood Cells % 0.0 Neutrophils # (Manual) 2.4 Lymphocytes # 0.5 L Monocytes # 0.6 Eosinophils # 0.1 Basophils # 0.0 Nucleated Red Blood Cells # 0.0 Sodium Level 139 Potassium Level 3.6 Chloride Level 99 Carbon Dioxide Level 28 Anion Gap 16 Blood Urea Nitrogen 12 Creatinine 0.63 Glucose Level 89 Calcium Level 9.8 Medications Medications Current Medications Oxycodone/ Acetaminophen (Percocet (5/ 325)) 1 tab Q6H PRN PO pain; Start 06/22 at 23:00 Morphine Sulfate (morphine) 2 mg Q4H PRN IV breakthrough pain Last administered on 06/24/17 20:30; Admin Dose 2 MG; Start 06/22/17 at 23:00 Docusate Sodium (Colace) 100 mg BID PO Last administered on 06/24/17 20:30; Admin Dose 100 MG; Start 06/23/17 at 09:00 Senna (Senokot) 1 tab DAILY PO Last administered on 06/23/17 08:37; Admin Dose 1 TAB; Start 06/23/17 at 09:00 Ondansetron HCl (Zofran Inj) 4 mg Q6H PRN IV NAUSEA AND/OR VOMITING Last administered on 06/24/17 20:30; Admin Dose 4 MG; Start 06/22/17 at 23:00 Enoxaparin Sodium (Lovenox) 40 mg DAILY SC Last administered on 06/25/17 08:54 ; Admin Dose 40 MG; Start 06/23/17 at 10:00 Famotidine (Pepcid) 20 mg BID PO Last administered on 06/25/17 08:48; Admin Dose 20 MG; Start 06/23/17 at 12:00 ZELDA ASHTON M.D. Jun 25, 2017 10:13
--- NOTE | 2017-06-25 14:09 | PN ---
Date/Time of Note Date/Time of Note DATE: 06/25/17 TIME: 14:05 Assessment/Plan VTE Prophylaxis VTE Prophylaxis Intervention: LMWH Lines/Catheters IV Catheter Type (from Nrsg): Peripheral IV Assessment/Plan Assessment/Plan 1. Acute left hip pathologic fractures secondary to metastasis, ortho recommends high level of care, case resource manager is arranging for transfer to higher level of care facility 2. Breast cancer with multiple bone metes, currently undergoing hip radiation for mets, but is planned for oral treatment with anticipation of good treatment response, follow up with oncology 3. Mild normocytic anemia, malignancy related 4. DVT prophylaxis: lovenox Subjective 24 Hr Interval Summary Free Text/Dictation no event, no pain, no fever Exam/Review of Systems Vital Signs Vitals Vital Signs Date Time Temp Pulse Resp B/P Pulse Ox O2 Delivery O2 Flow Rate FiO2 06/25/17 07:41 99.0 108 18 130/69 95 06/23/17 19:03 Room Air 06/22/17 21:00 2.0 Intake and Output 06/24/17 06/24/17 06/25/17 15:00 23:00 07:00 Intake Total 360 ml 120 ml Balance 360 ml 120 ml Exam Constitutional: alert, frail, oriented Psych: nl mood/affect, no complaints Head: atraumatic, normocephalic Eyes: EOMI, PERRL, nl conjunctiva, nl lids ENMT: nl external ears & nose, nl lips & teeth, nl nasal mucosa & septum Neck: non-tender, supple Respiratory: clear to auscultation, normal air movement, No congested cough, No crackles/rales, No diminished breath sounds, No intercostal retraction, No labored breathing, No other, No respirations, No tactile fremitus, No wheezing Cardiovascular: nl pulses, regular rate and rhythm, No S3, No S4, No bruits, No diastolic murmur, No edema, No gallop, No irregular rhythm, No jugular venous distention (JVD), No murmurs/extra sounds, No other, No rub, No systolic murmur Gastrointestinal: nl liver, spleen, non-tender, soft, No ascites, No bowel sounds, No distended, No firm, No hepatomegaly, No mass , No other, No rebound or guarding, No splenomegaly, No surgical scars, No tender Musculoskeletal: nl extremities to inspection Extremities: normal pulses, No calf tenderness, No clubbing, No cyanosis, No edema, No other, No palpable cord, No pitting pedal edema, No tenderness Neurological: WRAPPER SORTER II-XII intact, nl mental status, nl speech, nl strength Skin: nl turgor Results Result Diagram: 06/25/17 0753 06/25/17 0753 Results 24 hrs Laboratory Tests Test 06/25/17 07:53 White Blood Count 3.7 L Red Blood Count 4.35 Hemoglobin 11.5 L Hematocrit 36.1 L Mean Corpuscular Volume 83.0 Mean Corpuscular Hemoglobin 26.4 L Mean Corpuscular Hemoglobin Concent 31.9 L Red Cell Distribution Width 14.4 Platelet Count 324 Mean Platelet Volume 8.8 Neutrophils % 65.5 Lymphocytes % 12.8 L Monocytes % 15.2 H Eosinophils % 3.8 Basophils % 0.8 Nucleated Red Blood Cells % 0.0 Neutrophils # (Manual) 2.4 Lymphocytes # 0.5 L Monocytes # 0.6 Eosinophils # 0.1 Basophils # 0.0 Nucleated Red Blood Cells # 0.0 Sodium Level 139 Potassium Level 3.6 Chloride Level 99 Carbon Dioxide Level 28 Anion Gap 16 Blood Urea Nitrogen 12 Creatinine 0.63 Glucose Level 89 Calcium Level 9.8 Medications Medications Current Medications Oxycodone/ Acetaminophen (Percocet (5/ 325)) 1 tab Q6H PRN PO pain; Start 06/22 at 23:00 Morphine Sulfate (morphine) 2 mg Q4H PRN IV breakthrough pain Last administered on 06/24/17 20:30; Admin Dose 2 MG; Start 06/22/17 at 23:00 Docusate Sodium (Colace) 100 mg BID PO Last administered on 06/24/17 20:30; Admin Dose 100 MG; Start 06/23/17 at 09:00 Senna (Senokot) 1 tab DAILY PO Last administered on 06/23/17 08:37; Admin Dose 1 TAB; Start 06/23/17 at 09:00 Ondansetron HCl (Zofran Inj) 4 mg Q6H PRN IV NAUSEA AND/OR VOMITING Last administered on 06/24/17 20:30; Admin Dose 4 MG; Start 06/22/17 at 23:00 Enoxaparin Sodium (Lovenox) 40 mg DAILY SC Last administered on 06/25/17 08:54 ; Admin Dose 40 MG; Start 06/23/17 at 10:00 Famotidine (Pepcid) 20 mg BID PO Last administered on 06/25/17 08:48; Admin Dose 20 MG; Start 06/23/17 at 12:00 CAITLIN MONTOYA MD Jun 25, 2017 14:08
[2017-06-25 14:28] VITALS: BP 121/68; RESP 18
--- NOTE | 2017-06-25 17:09 | RADRPT ---
Vent Rate: 115 bpm RR Interval: 0 msec IN Interval: 136 msec QRS Duration: 82 msec QT Interval: 314 msec QTC Interval: 434 msec P-R-T [place]: 77 - 77 - 61 degrees Sinus tachycardia Otherwise normal ECG Electronically Signed By: Hector Nichole [id number]
[2017-06-25 19:27] VITALS: BP 120/72; RESP 18
[2017-06-25 19:35] VITALS: BP 112/70; RESP 18
[2017-06-25] MEDS: ONDANSETRON 4 MG INJ IV PRN (20:00)
[2017-06-25] MEDS: morphine 2 MG INJ IV PRN (20:05)
[2017-06-26 06:31] VITALS: BP 120/65; RESP 18
[2017-06-26 07:33] VITALS: BP 115/65; RESP 16
[2017-06-26] MEDS: DOCUSATE SODIUM 100 MG CAP PO SCH ×2 (08:49→20:19)
[2017-06-26] MEDS: SENNA TAB PO SCH (08:49)
[2017-06-26] MEDS: FAMOTIDINE 20 MG TAB PO SCH ×2 (09:06→20:19)
[2017-06-26] MEDS: ENOXAPARIN 40 MG/0.4 ML SYG SC SCH (09:10)
--- NOTE | 2017-06-26 12:33 | PN ---
Date/Time of Note Date/Time of Note DATE: 06/26/17 TIME: 12:31 Assessment/Plan VTE Prophylaxis VTE Prophylaxis Intervention: heparin Lines/Catheters IV Catheter Type (from Nrsg): Peripheral IV Assessment/Plan Problems: (1) Pathological fracture of left hip Status: Acute Comment: This is a recent event. She has been seen by orthopedics here who recommends due to the extensive disease that she be transferred to a higher level of care-tertiary care center for management. This is hopefully in progress. Qualifiers: Pathology associated with fracture: unspecified disease Encounter type: initial encounter Qualified Code: M84.452A - Pathological fracture of left hip , unspecified pathological cause, initial encounter (2) Metastatic breast cancer Status: Acute Comment: This was diagnosed 4 months ago and the patient's under treatment. Please see the notes from oncology. Regrettably given the stage at this she may have a very difficult course. Subjective 24 Hr Interval Summary Free Text/Dictation Charming female. She reports that her pain is adequately controlled although she is nonambulatory due to the pathologic hip fracture Constitutional: no complaints (Denies fever chills or sweats) Respiratory: no complaints Cardiovascular: no complaints Gastrointestinal: no complaints Exam/Review of Systems Vital Signs Vitals Vital Signs Date Time Temp Pulse Resp B/P Pulse Ox O2 Delivery O2 Flow Rate FiO2 06/26/17 07:33 98.9 106 16 115/65 97 06/23/17 19:03 Room Air 06/22/17 21:00 2.0 Intake and Output 06/25/17 06/25/17 06/26/17 15:00 23:00 07:00 Intake Total 240 ml Balance 240 ml Exam Cachectic female Constitutional: alert, oriented Respiratory: clear to auscultation, normal air movement Cardiovascular: nl pulses, regular rate and rhythm Results Result Diagram: 06/25/17 0753 06/25/17 0753 Medications Medications Current Medications Oxycodone/ Acetaminophen (Percocet (5/ 325)) 1 tab Q6H PRN PO pain; Start 06/22 at 23:00 Morphine Sulfate (morphine) 2 mg Q4H PRN IV breakthrough pain Last administered on 06/25/17t 20:05; Admin Dose 2 MG; Start 06/22/17 at 23:00 Docusate Sodium (Colace) 100 mg BID PO Last administered on 06/24/17 20:30; Admin Dose 100 MG; Start 06/23/17 at 09:00 Senna (Senokot) 1 tab DAILY PO Last administered on 06/23/17 08:37; Admin Dose 1 TAB; Start 06/23/17 at 09:00 Ondansetron HCl (Zofran Inj) 4 mg Q6H PRN IV NAUSEA AND/OR VOMITING Last administered on 06/25/17 20:00; Admin Dose 4 MG; Start 06/22/17 at 23:00 Enoxaparin Sodium (Lovenox) 40 mg DAILY SC Last administered on 06/26/17 09:10 ; Admin Dose 40 MG; Start 06/23/17 at 10:00 Famotidine (Pepcid) 20 mg BID PO Last administered on 06/26/17 09:06; Admin Dose 20 MG; Start 06/23/17 at 12:00 FABIOLA ELLINGTON MD Jun 26, 2017 12:33
[2017-06-26 15:15] VITALS: BP 127/64; RESP 18
[2017-06-26] MEDS: morphine 2 MG INJ IV PRN (15:29)
[2017-06-26 19:34] VITALS: BP 111/63; RESP 18
[2017-06-26] MEDS: ONDANSETRON 4 MG INJ IV PRN (20:18)
[2017-06-27 02:00] VITALS: BP 118/72; RESP 18
[2017-06-27] MEDS: morphine 2 MG INJ IV PRN ×2 (02:02→20:59)
[2017-06-27 07:51] VITALS: BP 120/60; RESP 16
[2017-06-27] MEDS: FAMOTIDINE 20 MG TAB PO SCH ×2 (08:40→20:59)
[2017-06-27] MEDS: ENOXAPARIN 40 MG/0.4 ML SYG SC SCH (08:45)
[2017-06-27] MEDS: DOCUSATE SODIUM 100 MG CAP PO SCH ×2 (08:45→20:59)
[2017-06-27] MEDS: SENNA TAB PO SCH (08:46)
--- NOTE | 2017-06-27 10:39 | PN ---
Date/Time of Note Date/Time of Note DATE: 06/27/17 TIME: 10:36 Assessment/Plan VTE Prophylaxis VTE Prophylaxis Intervention: contraindicated Lines/Catheters IV Catheter Type (from Nrsg): Saline Lock Assessment/Plan Problems: (1) Tachycardia Status: Acute Comment: Will check TSH and also an echocardiogram. I doubt that she has a large pericardial effusion but to be on the safe side given the metastatic breast cancer will check this (2) Metastatic breast cancer Status: Acute Comment: As per therapeutics of Dr. Guerra (3) Pathological fracture of left hip Status: Acute Comment: Receiving radiation therapy. Please see the recommendations of orthopedics for transfer to a higher level of care. Qualifiers: Pathology associated with fracture: unspecified disease Encounter type: initial encounter Qualified Code: M84.452A - Pathological fracture of left hip , unspecified pathological cause, initial encounter Subjective 24 Hr Interval Summary Free Text/Dictation She reports in bed she is without pain although she is not ambulatory obviously. Constitutional: no complaints Respiratory: no complaints Cardiovascular: no complaints Gastrointestinal: no complaints Exam/Review of Systems Vital Signs Vitals Vital Signs Date Time Temp Pulse Resp B/P Pulse Ox O2 Delivery O2 Flow Rate FiO2 06/27/17 07:51 98.6 112 16 120/60 96 06/23/17 19:03 Room Air Exam Constitutional: alert, oriented Neck: non-tender, supple Respiratory: clear to auscultation, normal air movement Cardiovascular: nl pulses, regular rate and rhythm Gastrointestinal: nl liver, spleen, non-tender, soft Results Result Diagram: 06/25/17 0753 06/25/17 0753 Medications Medications Current Medications Oxycodone/ Acetaminophen (Percocet (5/ 325)) 1 tab Q6H PRN PO pain; Start 06/22 at 23:00 Morphine Sulfate (morphine) 2 mg Q4H PRN IV breakthrough pain Last administered on 06/27/17 02:02; Admin Dose 2 MG; Start 06/22/17 at 23:00 Docusate Sodium (Colace) 100 mg BID PO Last administered on 06/24/17 20:30; Admin Dose 100 MG; Start 06/23/17 at 09:00 Senna (Senokot) 1 tab DAILY PO Last administered on 06/23/17 08:37; Admin Dose 1 TAB; Start 06/23/17 at 09:00 Ondansetron HCl (Zofran Inj) 4 mg Q6H PRN IV NAUSEA AND/OR VOMITING Last administered on 06/26/17 20:18; Admin Dose 4 MG; Start 06/22/17 at 23:00 Enoxaparin Sodium (Lovenox) 40 mg DAILY SC Last administered on 06/27/17 08:45 ; Admin Dose 40 MG; Start 06/23/17 at 10:00 Famotidine (Pepcid) 20 mg BID PO Last administered on 06/27/17 08:40; Admin Dose 20 MG; Start 06/23/17 at 12:00 FABIOLA ELLINGTON MD Jun 27, 2017 10:39
[2017-06-27 14:30] VITALS: BP 120/66; RESP 18
[2017-06-27 19:32] VITALS: BP 119/66; RESP 18
[2017-06-27 21:12] VITALS: BP 148/76; PULSE 99
[2017-06-28 02:00] VITALS: BP 116/70; RESP 18
[2017-06-28 05:47] LABS: ABNORMAL IP MESSAGE 1; BASOPHILS % 0.9 % (0.0-2.0); EOSINOPHILS # 0.2 10^3/ul (0.0-0.5); HEMATOCRIT 38.5 % (37.0-47.0); HEMOGLOBIN 12.2 g/dl (12.0-16.0); LYMPHOCYTES # 0.6 10^3/ul (0.8-2.9); LYMPHOCYTES % 16.4 % (15.0-51.0); MEAN CORPUSCULAR HEMOGLOBIN 26.4 pg (29.0-33.0); MEAN CORPUSCULAR HGB CONC 31.7 g/dl (32.0-37.0); MEAN CORPUSCULAR VOLUME 83.3 fl (82.0-101.0); MEAN PLATELET VOLUME 8.7 fl (7.4-10.4); MONOCYTE # 0.6 10^3/ul (0.3-0.9); NEUTROPHILS % 57.3 % (39.0-77.0); PLATELET COUNT 257 10^3/UL (140-415); RED BLOOD COUNT 4.62 10^6/ul (4.20-5.40); WHITE BLOOD COUNT 3.4 10^3/ul (4.8-10.8)
[2017-06-28 05:51] LABS: POSITIVE DIFF @See below
[2017-06-28 06:55] LABS: ALBUMIN 3.8 g/dl (3.3-4.9); ALBUMIN/GLOBULIN RATIO 1.05; BILIRUBIN,INDIRECT 0.4 mg/dl (0-1.1); BILIRUBIN,TOTAL 0.4 mg/dl (0.2-1.3); CREATININE 0.59 mg/dl (0.44-1.00); POTASSIUM 3.7 mmol/L (3.5-5.1); TOTAL PROTEIN 7.4 g/dl (6.1-8.1)
[2017-06-28 07:33] VITALS: BP 112/66; RESP 18
[2017-06-28] MEDS: DOCUSATE SODIUM 100 MG CAP PO SCH ×2 (09:00→20:39)
[2017-06-28] MEDS: SENNA TAB PO SCH (09:00)
[2017-06-28] MEDS: FAMOTIDINE 20 MG TAB PO SCH ×2 (09:11→20:39)
[2017-06-28] MEDS: ENOXAPARIN 40 MG/0.4 ML SYG SC SCH (09:18)
[2017-06-28 10:53] LABS: ADD UMIC YES; UR ASCORBIC ACID 40 mg/dL (NEGATIVE); UR BACTERIA FEW /HPF (NONE SEEN); UR BILIRUBIN (Dip) NEGATIVE (NEGATIVE); UR BLOOD (Dip) NEGATIVE (NEGATIVE); UR CLARITY SLIGHTLY CLOUDY (CLEAR); UR COLOR YELLOW (YELLOW); UR GLUCOSE (Dip) NEGATIVE (NEGATIVE); UR KETONES (Dip) NEGATIVE (NEGATIVE); UR LEUKOCYTE ESTERASE (Dip) 1+ Leu/ul (NEGATIVE); UR MUCUS FEW /HPF (NONE SEEN); UR NITRITE (Dip) NEGATIVE (NEGATIVE); UR RBC 4 /HPF (0-5); UR SPECIFIC GRAVITY (Dip) 1.014 (1.003-1.030); UR SQUAMOUS EPITHELIAL CELL FEW /HPF (FEW); UR TOTAL PROTEIN (Dip) 1+ mg/dl (NEGATIVE); UR URIC ACID CRYSTAL MANY /HPF (NONE SEEN); UR UROBILINOGEN (Dip) NEGATIVE (NEGATIVE)
--- NOTE | 2017-06-28 13:44 | PN ---
Date/Time of Note Date/Time of Note DATE: 06/28/17 TIME: 13:38 Assessment/Plan VTE Prophylaxis VTE Prophylaxis Intervention: LMWH Lines/Catheters IV C[facility]ter [facility] (from [facility] Peripheral IV Urinary Cath still in place: No Assessment/Plan Chief Complaint/Hosp Course Subjective: pain controlled. No dyspnea fever. Denies any chest pain. Most pain with movement from her leg. Pending lateral hospital transfer. Radiation at 2. Objective: Vital signs stable except tachycardia No pallor/adenopathy Reg tachycardia Clear Bs positive, nt nd, no r/r/g No edema. Dimin range of motion Lt hip Assessment and plan 1. Acute comminuted intertrochanteric fracture, lt hip stable, transfer to [place] for probable ORIF. -Tachycardia remains. Intermediate periop risk. Risk-benefit ratio weighs in favor of proceeding directly forward to surgery on any further intervention. 2. Mechanical fall; snf placement at some point 3. Pathological fracture left hip/ femur. 4. Sinus tachycardia probably due to pain/ discomfort. Echo pending. 5. 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 Possible symptomatic anemia. May need transfusion 7. Stage IV metastatic breast Ca. ER/CA positive. HER2 negative. Radiation at 2pm. Problems: Exam/Review of Systems Vital Signs Vitals Vital Signs Date Time Temp Pulse Resp B/P Pulse Ox O2 Delivery O2 Flow Rate FiO2 06/28/17 07:33 97.9 111 18 112/66 96 Intake and Output 06/27/17 06/27/17 06/28/17 15:00 23:00 07:00 Intake Total 320 ml 880 ml 320 ml Output Total 150 ml 400 ml Balance 170 ml 880 ml -80 ml Results Result Diagram: 06/28/17 0515 06/28/17 0515 Results 24 hrs Laboratory Tests Test 06/28/17 05:15 White Blood Count 3.4 L Red Blood Count 4.62 Hemoglobin 12.2 Hematocrit 38.5 Mean Corpuscular Volume 83.3 Mean Corpuscular Hemoglobin 26.4 L Mean Corpuscular Hemoglobin Concent 31.7 L Red Cell Distribution Width 15.0 H Platelet Count 257 # Mean Platelet Volume 8.7 Neutrophils % 57.3 Lymphocytes % 16.4 Monocytes % 17.0 H Eosinophils % 6.0 Basophils % 0.9 Nucleated Red Blood Cells % 0.0 Neutrophils # (Manual) 1.9 Lymphocytes # 0.6 L Monocytes # 0.6 Eosinophils # 0.2 Basophils # 0.0 Nucleated Red Blood Cells # 0.0 Sodium Level 144 Potassium Level 3.7 Chloride Level 101 Carbon Dioxide Level 27 Anion Gap 20 H Blood Urea Nitrogen 13 Creatinine 0.59 Glucose Level 94 Calcium Level 10.0 Total Bilirubin 0.4 Direct Bilirubin 0.00 Indirect Bilirubin 0.4 Aspartate Amino Transf (AST/SGOT) 67 H Alanine Aminotransferase (ALT/SGPT) 43 Alkaline Phosphatase 167 H Total Protein 7.4 Albumin 3.8 Globulin 3.60 H Albumin/Globulin Ratio 1.05 Thyroid Stimulating Hormone (TSH) 1.410 Medications Medications Current Medications Oxycodone/ Acetaminophen (Percocet (5/ 325)) 1 tab Q6H PRN PO pain; Start 06/22 at 23:00 Morphine Sulfate (morphine) 2 mg Q4H PRN IV breakthrough pain Last administered on 06/27/17 20:59; Admin Dose 2 MG; Start 06/22/17 at 23:00 Docusate Sodium (Colace) 100 mg BID PO Last administered on 06/24/17 20:30; Admin Dose 100 MG; Start 06/23/17 at 09:00 Senna (Senokot) 1 tab DAILY PO Last administered on 06/23/17 08:37; Admin Dose 1 TAB; Start 06/23/17 at 09:00 Ondansetron HCl (Zofran Inj) 4 mg Q6H PRN IV NAUSEA AND/OR VOMITING Last administered on 06/26/17 20:18; Admin Dose 4 MG; Start 06/22/17 at 23:00 Enoxaparin Sodium (Lovenox) 40 mg DAILY SC Last administered on 06/28/17 09:18 ; Admin Dose 40 MG; Start 06/23/17 at 10:00 Famotidine (Pepcid) 20 mg BID PO Last administered on 06/28/17 09:11; Admin Dose 20 MG; Start 06/23/17 at 12:00 MISHA IVY MD Jun 28, 2017 13:44
[2017-06-28 14:06] VITALS: BP 117/62; RESP 18
[2017-06-28] MEDS ORDERED: OXYCODONE/ACETAMINOPHEN (5/325) TAB PO PRN (15:00)
[2017-06-28 15:43] VITALS: BP 118/64; RESP 18
[2017-06-28] MEDS: ONDANSETRON 4 MG INJ IV PRN (15:52)
[2017-06-28 20:36] VITALS: BP 113/63; RESP 20
--- NOTE | 2017-06-28 21:26 | CONS ---
Date/Time of Note Date/Time of Note DATE: 06/28/17 TIME: 21:21 Assessment/Plan Assessment/Plan Chief Complaint/Hosp Course 61 yo with L breast mass with widespread disease on CT scan which demonstrates subcutaneous stranding within the right breast with a deep fluid collection measuring 4.7 x 1.2 cm , as well as diffuse sclerotic mets, mild pathologic compression of C7, T2, T4, T8 and T10 vertebral bodies as well as a prominent R axillary LN. Extensive family discussion was had with son and patient who understand she has STAGE IV disease. They understand she may need chemotherapy vs targeted therapy but these decisions will made once the IHC stains have come back. #Breast mass -this is now confirmed as breast cancer. immunohistochemistry stains are pending which will help determine what treatment is to be given. -patient is ER+/[place]+/Her2 negative breast with bone only mets -I plan to start her on an aromatase inhibitor with Ibrance targeted therapy as an outpatient once radiation is completed. Patient with bone only disease can have quite a good and durable response to hormone deprivation therapy. As such I expect this patient to respond well to therapy #L femoral neck fracture -pt is s/p evaluation by orthopedic surgery who notes the large extent of fracture through ischium, acetabulum, femoral neck, and femoral shaft. -given this cannot be done at this [facility], pt will need evaluation at a tertiary care center . plan to transfer patient to hospital in [place] -plan would be to radiate the femoral neck after surgery if and when cleared by orthopedic surgery #Back Pain - -pt is currently undergoing radiation treatment to spine. will clarify with rad onc exactly where they are radiating #Bone Mets -pt received 1 dose of bisphosphonate therapy during the last admission -will continue this on a q month basis Problems: Problems: Consultation Date/Type/Reason Admit Date/Time Jun 22, 2017 at 21:32 Initial Consult Date 06/23/17 Type of Consultation: Oncology Reason for Consultation metastatic breast ca. Left femur fracture Referring Provider: DAMASO KHAN 24 HR Interval Summary Free Text/Dictation pt continues on radiation . pain is under control Exam/Review of Systems Vital Signs Vitals Vital Signs Date Time Temp Pulse Resp B/P Pulse Ox O2 Delivery O2 Flow Rate FiO2 06/28/17 20:36 99.0 107 20 113/63 98 Intake and Output 06/27/17 06/27/17 06/28/17 15:00 23:00 07:00 Intake Total 320 ml 880 ml 320 ml Output Total 150 ml 400 ml Balance 170 ml 880 ml -80 ml Exam Constitutional: alert, oriented Psych: no complaints Head: normocephalic Eyes: nl conjunctiva ENMT: nl external ears & nose Neck: non-tender, supple Respiratory: clear to auscultation Cardiovascular: regular rate and rhythm Gastrointestinal: soft Musculoskeletal: joint tenderness, muscle weakness Results Result Diagram: 06/28/17 0515 06/28/17 0515 Results 24 hrs Laboratory Tests Test 06/28/17 05:15 White Blood Count 3.4 L Red Blood Count 4.62 Hemoglobin 12.2 Hematocrit 38.5 Mean Corpuscular Volume 83.3 Mean Corpuscular Hemoglobin 26.4 L Mean Corpuscular Hemoglobin Concent 31.7 L Red Cell Distribution Width 15.0 H Platelet Count 257 # Mean Platelet Volume 8.7 Neutrophils % 57.3 Lymphocytes % 16.4 Monocytes % 17.0 H Eosinophils % 6.0 Basophils % 0.9 Nucleated Red Blood Cells % 0.0 Neutrophils # (Manual) 1.9 Lymphocytes # 0.6 L Monocytes # 0.6 Eosinophils # 0.2 Basophils # 0.0 Nucleated Red Blood Cells # 0.0 Sodium Level 144 Potassium Level 3.7 Chloride Level 101 Carbon Dioxide Level 27 Anion Gap 20 H Blood Urea Nitrogen 13 Creatinine 0.59 Glucose Level 94 Calcium Level 10.0 Total Bilirubin 0.4 Direct Bilirubin 0.00 Indirect Bilirubin 0.4 Aspartate Amino Transf (AST/SGOT) 67 H Alanine Aminotransferase (ALT/SGPT) 43 Alkaline Phosphatase 167 H Total Protein 7.4 Albumin 3.8 Globulin 3.60 H Albumin/Globulin Ratio 1.05 Thyroid Stimulating Hormone (TSH) 1.410 Medications Medications Current Medications Morphine Sulfate (morphine) 2 mg Q4H PRN IV breakthrough pain Last administered on 06/27/17 20:59; Admin Dose 2 MG; Start 06/22/17 at 23:00 Docusate Sodium (Colace) 100 mg BID PO Last administered on 06/24/17 20:30; Admin Dose 100 MG; Start 06/23/17 at 09:00 Senna (Senokot) 1 tab DAILY PO Last administered on 06/23/17 08:37; Admin Dose 1 TAB; Start 06/23/17 at 09:00 Ondansetron HCl (Zofran Inj) 4 mg Q6H PRN IV NAUSEA AND/OR VOMITING Last administered on 06/28/17 15:52; Admin Dose 4 MG; Start 06/22/17 at 23:00 Enoxaparin Sodium (Lovenox) 40 mg DAILY SC Last administered on 06/28/17 09:18 ; Admin Dose 40 MG; Start 06/23/17 at 10:00 Famotidine (Pepcid) 20 mg BID PO Last administered on 06/28/17 09:11; Admin Dose 20 MG; Start 06/23/17 at 12:00 Oxycodone/ Acetaminophen (Percocet (5/ 325)) 1 tab Q3 PRN PO pain; Start at 15:00 ZELDA ASHTON M.D. Jun 28, 2017 21:26
[2017-06-28] MEDS: morphine 2 MG INJ IV PRN (23:31)
[2017-06-29 03:31] VITALS: BP 110/67; RESP 18
[2017-06-29 06:13] LABS: ABNORMAL IP MESSAGE 1; BASOPHILS % 0.9 % (0.0-2.0); EOSINOPHILS # 0.2 10^3/ul (0.0-0.5); EOSINOPHILS % 5.6 % (0.0-7.0); HEMATOCRIT 38.4 % (37.0-47.0); HEMOGLOBIN 12.5 g/dl (12.0-16.0); LYMPHOCYTES # 0.5 10^3/ul (0.8-2.9); LYMPHOCYTES % 14.4 % (15.0-51.0); MEAN CORPUSCULAR HEMOGLOBIN 27.1 pg (29.0-33.0); MEAN CORPUSCULAR HGB CONC 32.6 g/dl (32.0-37.0); MEAN CORPUSCULAR VOLUME 83.1 fl (82.0-101.0); MEAN PLATELET VOLUME 8.9 fl (7.4-10.4); MONOCYTE # 0.6 10^3/ul (0.3-0.9); MONOCYTES % 18.8 % (0.0-11.0); NEUTROPHILS % 58.2 % (39.0-77.0); PLATELET COUNT 225 10^3/UL (140-415); RED BLOOD COUNT 4.62 10^6/ul (4.20-5.40); RED CELL DISTRIBUTION WIDTH 14.7 % (11.5-14.5); WHITE BLOOD COUNT 3.4 10^3/ul (4.8-10.8)
[2017-06-29 06:19] LABS: POSITIVE DIFF @See below
[2017-06-29 06:58] LABS: CALCIUM 9.8 mg/dl (8.4-10.2); CREATININE 0.61 mg/dl (0.44-1.00); POTASSIUM 3.7 mmol/L (3.5-5.1)
[2017-06-29 07:39] VITALS: BP 106/63; RESP 16
[2017-06-29] MEDS: DOCUSATE SODIUM 100 MG CAP PO SCH ×2 (09:00→21:00)
[2017-06-29] MEDS: SENNA TAB PO SCH (09:00)
[2017-06-29] MEDS: FAMOTIDINE 20 MG TAB PO SCH ×2 (09:03→21:34)
[2017-06-29] MEDS: ENOXAPARIN 40 MG/0.4 ML SYG SC SCH (09:19)
--- NOTE | 2017-06-29 10:53 | PN ---
Date/Time of Note Date/Time of Note DATE: 06/29/17 TIME: 10:51 Assessment/Plan VTE Prophylaxis VTE Prophylaxis Intervention: LMWH Lines/Catheters IV [facility]from [facility] Saline Lock Urinary Cath still in place: No Assessment/Plan Chief Complaint/Hosp Course S 06/28: pain controlled. No dyspnea fever. Denies any chest pain. Most pain with movement from her leg. Pending lateral hospital transfer. Radiation at 2. 06/29: no events O: Vital signs stable except tachycardia No pallor Reg tachycardia Clear Bs positive, nt nd, no r/r/g No edema. Dimin range of motion Lt hip A/P 1. Acute comminuted intertrochanteric fracture, lt hip stable, transfer to [facility]. Needs Total Femur. -Tachycardia remains. Intermediate periop risk. Risk-benefit ratio weighs in favor of proceeding directly forward to surgery on any further intervention. 2. Mechanical fall; snf placement at some point 3. Pathological fracture left hip/ femur. cont XRT. 4. Sinus tachycardia probably due to pain/ discomfort. Echo pending. 5. 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 Possible symptomatic anemia. May need transfusion 7. Stage IV metastatic breast Ca. ER/OR positive. HER2 negative. Radiation at 2pm. outpt chemo. Problems: Exam/Review of Systems Vital Signs Vitals Vital Signs Date Time Temp Pulse Resp B/P Pulse Ox O2 Delivery O2 Flow Rate FiO2 06/29/17 07:39 98.8 108 16 106/63 95 Intake and Output 06/28/17 06/28/17 06/29/17 15:00 23:00 07:00 Intake Total 1000 ml 300 ml Balance 1000 ml 300 ml Results Result Diagram: 06/29/17 0529 06/29/17 0529 Results 24 hrs Laboratory Tests Test 06/29/17 05:29 White Blood Count 3.4 L Red Blood Count 4.62 Hemoglobin 12.5 Hematocrit 38.4 Mean Corpuscular Volume 83.1 Mean Corpuscular Hemoglobin 27.1 L Mean Corpuscular Hemoglobin Concent 32.6 Red Cell Distribution Width 14.7 H Platelet Count 225 Mean Platelet Volume 8.9 Neutrophils % 58.2 Lymphocytes % 14.4 L Monocytes % 18.8 H Eosinophils % 5.6 Basophils % 0.9 Nucleated Red Blood Cells % 0.0 Neutrophils # (Manual) 2.0 Lymphocytes # 0.5 L Monocytes # 0.6 Eosinophils # 0.2 Basophils # 0.0 Nucleated Red Blood Cells # 0.0 Sodium Level 144 Potassium Level 3.7 Chloride Level 100 Carbon Dioxide Level 28 Anion Gap 20 H Blood Urea Nitrogen 16 Creatinine 0.61 Glucose Level 94 Calcium Level 9.8 Medications Medications Current Medications Morphine Sulfate (morphine) 2 mg Q4H PRN IV breakthrough pain Last administered on 06/28/17 23:31; Admin Dose 2 MG; Start 06/22/17 at 23:00 Docusate Sodium (Colace) 100 mg BID PO Last administered on 06/24/17 20:30; Admin Dose 100 MG; Start 06/23/17 at 09:00 Senna (Senokot) 1 tab DAILY PO Last administered on 06/23/17 08:37; Admin Dose 1 TAB; Start 06/23/17 at 09:00 Ondansetron HCl (Zofran Inj) 4 mg Q6H PRN IV NAUSEA AND/OR VOMITING Last administered on 06/28/17 15:52; Admin Dose 4 MG; Start 06/22/17 at 23:00 Enoxaparin Sodium (Lovenox) 40 mg DAILY SC Last administered on 06/29/17 09:19 ; Admin Dose 40 MG; Start 06/23/17 at 10:00 Famotidine (Pepcid) 20 mg BID PO Last administered on 06/29/17 09:03; Admin Dose 20 MG; Start 06/23/17 at 12:00 Oxycodone/ Acetaminophen (Percocet (5/ 325)) 1 tab Q3 PRN PO pain; Start at 15:00 MISHA IVY MD Jun 29, 2017 10:53
[2017-06-29 14:42] VITALS: BP 115/65; RESP 18
[2017-06-29] MEDS: morphine 2 MG INJ IV PRN (14:49)
[2017-06-29] MEDS: ONDANSETRON 4 MG INJ IV PRN (15:35)
--- NOTE | 2017-06-29 18:06 | RADRPT ---
Echocardiogram Report Patient Name: DAKOTA NIETO Gender: Female Date: 1955 Study Date: 28-Jun-2017 Child Advocate: Amrita [facility] Location: 622 Ref. Physician: FABIOLA ELLINGTON Quality: Technically Difficult Study Procedures: Transthoracic echocardiogram examination. Indications: R/O Pericardial Effusion. 2D/M Mode Doppler Measurement Value Normal Range Measurement Value Normal Range LVIDd 2D 3.7 3.5 - 5.6 cm AV Peak Aydin 0.9 m/sec LVIDs 2D 2.5 2.1 - 4.1 cm AV Peak PG 3.0 mmHg FS 2D 32.6 % LVOT Peak Aydin 1.0 m/sec LVPWd 2D 0.8 0.6 - 1.1 cm LVOT Peak PG 4.0 mmHg IVSd 2D 0.9 0.6 - 1.1 cm MV E Peak Aydin 1.2 m/sec IVS/LVPW 2D 1.0 TR Peak Aydin 2.1 m/sec AoR Diam 2D 1.9 2.0 - 3.7 cm TR Peak PG 18.0 mmHg LA/Ao 2D 2 0 - 1 RA Pressure 21.0 mmHg EDV 2D 48.6 cm3 ESV 2D 14.9 cm3 LA Dimen 2D 3.0 2.3 - 4.0 cm Findings Left Ventricle: Normal left ventricular cavity size. Normal left ventricular systolic function. Normal left ventricular wall thickness. The left ventricular ejection fraction is visually estimated at 65 %. Right Ventricle: The right ventricle is not well visualized. Left Atrium: The left atrium is normal in size and appearance. Right Atrium: The right atrium is not well visualized. Mitral Valve: Anterior mitral valve leaflet appear mildly thickened. Posterior mitral valve leaflet appear mildly thickened. Mild mitral annular calcification. Trivial mitral regurgitation. Aortic Valve: The aortic valve is not well visualized. No hemodynamically significant aortic stenosis by Doppler. No aortic regurgitation. Tricuspid Valve: Normal appearance of the tricuspid valve. The estimated Peak PA Systolic Pressure is 21 mmHg. There is trivial tricuspid regurgitation. Pulmonic Valve: The pulmonic valve is not well visualized. There is trace pulmonic regurgitation. Pericardium: Normal pericardium with no significant pericardial effusion. IVC: Normal inferior vena cava appearance and respiratory collapse. Conclusions 1.Normal left ventricular cavity size. Normal left ventricular systolic function. Normal left ventricular wall thickness. The left ventricular ejection fraction is visually estimated at 65 %. 2.Normal pericardium with no significant pericardial effusion. Electronically Signed By: Harvey Sutton 29-Jun-2017 18:05:54 -0700 Patient Name: DAKOTA NIETO Study Date: 28-Jun-2017 [id number]
--- NOTE | 2017-06-29 19:07 | RADRPT ---
PROCEDURE: US bilateral lower extremity veins. CLINICAL INDICATION: Bilateral leg pain and swelling. TECHNIQUE: Multiple longitudinal and transverse images of the bilateral lower extremity veins were obtained with arriola scale and color Doppler imaging. The common femoral vein, femoral vein, and popl iteal vein were evaluated. 2D grayscale measurements with compression sonography, color Doppler, and pulsed Doppler with augmentation. COMPARISON: No prior studies are available for comparison. FINDINGS: The bilateral common femoral, femoral and popliteal veins are normally compressible throughout. Col or flow demonstrates normal filling of the vessels. Normal waveforms are visualized and there is no rmal response to augmentation. IMPRESSION: 1. No evidence of deep vein thrombosis involving either lower extremity. RPTAT: QQ .Damion Christopher MD, MD Date Time Electronically viewed and signed by .Damion Christopher MD, on 06/29/2017 19:06 .R/
[2017-06-29 20:10] VITALS: BP 119/70; RESP 18
[2017-06-30 01:57] VITALS: BP 113/68; RESP 18
[2017-06-30 07:30] VITALS: BP 110/68; RESP 18
[2017-06-30] MEDS: FAMOTIDINE 20 MG TAB PO SCH (08:50)
[2017-06-30] MEDS: DOCUSATE SODIUM 100 MG CAP PO SCH ×2 (08:50→21:00)
[2017-06-30] MEDS: SENNA TAB PO SCH (08:50)
--- NOTE | 2017-06-30 13:19 | PN ---
Date/Time of Note Date/Time of Note DATE: 06/30/17 TIME: 13:16 Assessment/Plan VTE Prophylaxis VTE Prophylaxis Intervention: LMWH Lines/Catheters IV Catheter Type (from Nrs): Saline Lock Urinary Cath still in place: No Assessment/Plan Chief Complaint/Hosp Course S 06/28: pain controlled. No dyspnea fever. Denies any chest pain. Most pain w movement from her leg. Pending lateral hospital transfer. Radiation at 2. 06/29: no events 06/30: O: Vss; except tachycardia PE No pallor Reg tachycardia Clear Bs positive, nt nd, no r/r/g No edema. Dimin range of motion Lt hip A/P 1. Ac comminuted intertrochanteric fracture, lt hip stable, transfer to tertiary care. Needs Total Femur. -Tachycardia remains. Intermediate periop risk. Risk-benefit ratio weighs in favor of proceeding directly forward to surgery on any further intervention. 2. Mechanical fall; snf placement at some point 3. Pathological fracture left hip/ femur. cont XRT. 4. Sinus tachycardia probably due to pain/ discomfort. Echo pending. 5. 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 Possible symptomatic anemia. transfusion prn. 7. Stage IV metastatic breast Ca. ER/AR positive. HER2 negative. Radiation at 2pm. outpt chemo. Problems: Exam/Review of Systems Vital Signs Vitals Vital Signs Date Time Temp Pulse Resp B/P Pulse Ox O2 Delivery O2 Flow Rate FiO2 06/30/17 07:30 98.9 117 18 110/68 96 Intake and Output 06/29/17 06/29/17 06/30/17 14:59 22:59 06:59 Intake Total 760 ml 120 ml Balance 760 ml 120 ml Results Result Diagram: 06/29/1729 06/29/17 0529 Medications Medications Current Medications Morphine Sulfate (morphine) 2 mg Q4H PRN IV breakthrough pain Last administered on 06/29/17 14:49; Admin Dose 2 MG; Start 06/22/17 at 23:00 Docusate Sodium (Colace) 100 mg BID PO Last administered on 06/24/17 20:30; Admin Dose 100 MG; Start 06/23/17 at 09:00 Senna (Senokot) 1 tab DAILY PO Last administered on 06/23/17 08:37; Admin Dose 1 TAB; Start 06/23/17 at 09:00 Ondansetron HCl (Zofran Inj) 4 mg Q6H PRN IV NAUSEA AND/OR VOMITING Last administered on 06/29/17 15:35; Admin Dose 4 MG; Start 06/22/17 at 23:00 Enoxaparin Sodium (Lovenox) 40 mg DAILY SC Last administered on 06/29/17 09:19 ; Admin Dose 40 MG; Start 06/23/17 at 10:00 Famotidine (Pepcid) 20 mg BID PO Last administered on 06/30/17 08:50; Admin Dose 20 MG; Start 06/23/17 at 12:00 Oxycodone/ Acetaminophen (Percocet (5/ 325)) 1 tab Q3 PRN PO pain; Start at 15:00 MISHA IVY MD Jun 30, 2017 13:19
--- NOTE | 2017-06-30 13:28 | DS ---
Date/Time of Note Date/Time of Note DATE: 06/30/17 TIME: 13:21 Discharge Summary Admission/Discharge Info Admit Date/Time Jun 22, 2017 at 21:32 Discharge Date/Time Discharge Diagnosis Left femur fracture Patient Condition: Stable Procedures 2D ECHO 1. Normal left ventricular cavity size. Normal left ventricular systolic function. Normal left ventricular wall thickness. The left ventricular ejection fraction is visually estimated at 65 %. 2. Normal pericardium with no significant pericardial effusion. Electronically Signed By: Harvey Sutton 29-Jun-2017 18:05:54 -0700 Hx of Present Illness 61-year-old female with a recent diagnosis of breast cancer currently undergoing radiation therapy for metastatic breast cancer but is scheduled to commence oral therapy for breast cancer next week. She was sent to the emergency room by the radiation oncologist because of a pathologic fracture, she is to be seen by orthopedic surgery. Her current complaint is left hip pain. I spoke with oncologist who reports that patient has good prognosis and is anticipated to have good response to oral therapy but she just needs to be stabilized from a pain standpoint and may need a pin in her left hip. Hospital Course During hospital course patient was evaluate by orthopedic surgery and oncology. Due to her extensive disease burden burden/pathological fracture, orthopedic surgery recommended she transfer to tertiary care. She and family are aware and agree. Additionally patient continued radiation therapy w transportation to radiation center. Sinus tachycardia remains, possibly due to discomfort. No evidence of heart issues such as malignant pericardial effusion. No evidence of DVT in lower extremities. No hypoxia, fever, or dyspnea. Presently stable and fit for discharge. A/P 1. Ac comminuted intertrochanteric fracture, lt femur. stable, transfer to tertiary care. Needs Total Femur. -Tachycardia remains. Intermediate periop risk. Risk-benefit ratio weighs in favor of proceeding directly forward to surgery on any further intervention. 2. Mechanical fall; snf placement at some point 3. Pathological fracture left hip/ femur. cont XRT. Femoral neck at the minimum when appropriate. 4. Sinus tachycardia probably due to pain/ discomfort. Echo/venous Doppler- no metastatic disease/pericardial effusion; no lower extremity DVT. 5. 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 Possible symptomatic anemia. transfusion prn. 7. Stage IV metastatic breast Ca. ER/LA positive. HER2 negative. Radiation at 2pm. outpt chemo. Home Meds Active Scripts Docusate Sodium (Dok) 100 Mg Capsule, 100 MG PO Q12H Y for CONSTIPATION, #40 CAP Prov:SEAN COX 06/03/17 Ondansetron Hcl* (Zofran*) 4 Mg Tablet, 4 MG PO Q6H Y for NAUSEA AND OR VOMITING , #30 TAB Prov:SEAN OCX 06/03/17 Metoprolol Succinate* (Toprol XL*) 25 Mg Tab.sr.24h, 25 MG PO DAILY for 30 Days Prov:SEAN COX 06/03/17 Hydromorphone Hcl* (Dilaudid*) 2 Mg Tablet, 2 MG PO Q3H Y for PAIN, #50 TAB Prov:SEAN COX 06/03/17 Alprazolam* (Alprazolam*) 0.25 Mg Tablet, 0.25 MG PO Q8H Y for ANXIETY, #20 TAB Prov:SEAN COX 06/03/17 Reported Medications Methadone Hcl* (Methadone Hcl*) 10 Mg/5 Ml Solution, 1 ML PO Q8H, ML 06/22/17 Alprazolam* (Alprazolam*) 0.25 Mg Tablet, 0.25 MG PO TID Y for ANXIETY, TAB 06/22/17 Metoprolol Succinate* (Toprol XL*) 25 Mg Tab.sr.24h, 25 MG PO DAILY, #30 TAB 06/22/17 Hydromorphone Hcl* (Hydromorphone Hcl*) 2 Mg Tablet, 2 MG PO Q3H Y for PAIN, TAB 06/22/17 Docusate Sodium* (Colace*) 100 Mg Capsule, 100 MG PO Q12H, #60 CAP 06/22/17 Ondansetron Hcl* (Zofran*) 4 Mg Tab, 4 MG PO Q6H Y for NAUSEA AND OR VOMITING, TAB 06/22/17 Follow-up Plan PCP & Oncology 1 wk post discharge Primary Care Provider MISHA IVY MD Jun 30, 2017 13:28
[2017-06-30] MEDS: ONDANSETRON 4 MG INJ IV PRN (15:32)
[2017-06-30 15:41] VITALS: BP 110/61; RESP 18
[2017-06-30] MEDS: ENOXAPARIN 40 MG/0.4 ML SYG SC SCH (16:27)
[2017-06-30 19:50] VITALS: BP 120/67; RESP 18
[2017-06-30] MEDS: morphine 2 MG INJ IV PRN (20:53)
[2017-07-01 02:00] VITALS: BP 113/74; RESP 18
[2017-07-01 06:27] LABS: ABNORMAL IP MESSAGE 1; BASOPHILS % 1.1 % (0.0-2.0); EOSINOPHILS # 0.1 10^3/ul (0.0-0.5); HEMATOCRIT 39.1 % (37.0-47.0); HEMOGLOBIN 12.5 g/dl (12.0-16.0); LYMPHOCYTES # 0.4 10^3/ul (0.8-2.9); LYMPHOCYTES % 12.2 % (15.0-51.0); MEAN CORPUSCULAR HEMOGLOBIN 26.6 pg (29.0-33.0); MEAN CORPUSCULAR VOLUME 83.2 fl (82.0-101.0); MONOCYTE # 0.7 10^3/ul (0.3-0.9); MONOCYTES % 19.5 % (0.0-11.0); NEUTROPHILS % 60.9 % (39.0-77.0); PLATELET COUNT 195 10^3/UL (140-415); RED CELL DISTRIBUTION WIDTH 15.3 % (11.5-14.5); WHITE BLOOD COUNT 3.5 10^3/ul (4.8-10.8)
[2017-07-01 06:54] LABS: POSITIVE DIFF @See below
[2017-07-01 07:16] LABS: CREATININE 0.56 mg/dl (0.44-1.00); MAGNESIUM 2.3 mg/dl (1.7-2.5); PHOSPHORUS 4.1 mg/dl (2.5-4.9); POTASSIUM 3.5 mmol/L (3.5-5.1)
[2017-07-01 07:38] VITALS: BP 113/69; RESP 18
[2017-07-01] MEDS: DOCUSATE SODIUM 100 MG CAP PO SCH ×2 (09:00→20:11)
[2017-07-01] MEDS ORDERED: FAMOTIDINE 20 MG TAB PO SCH (09:00)
[2017-07-01] MEDS: SENNA TAB PO SCH (09:16)
[2017-07-01] MEDS: ENOXAPARIN 40 MG/0.4 ML SYG SC SCH (09:35)
[2017-07-01] MEDS: morphine 2 MG INJ IV PRN (10:49)
[2017-07-01] MEDS: ONDANSETRON 4 MG INJ IV PRN (12:28)
[2017-07-01 14:36] VITALS: BP 123/62; RESP 18
--- NOTE | 2017-07-01 14:53 | PN ---
Date/Time of Note Date/Time of Note DATE: 07/01/17 TIME: 14:51 Assessment/Plan VTE Prophylaxis VTE Prophylaxis Intervention: LMWH Lines/Catheters IV Catheter Type (from [facility]): Saline Lock Urinary Cath still in place: No Assessment/Plan Chief Complaint/Hosp Course S- no events O- vss Future XRT Schedule: Wednesday07/02/17 tx at 12:45pm; Med Response pickup at 12:15pm Weekend: None Wednesday: Wednesday: tx at 12:45pm. Med Response pickup at 12:15pm. Ryan CM [id number] PE no pallor reg, no m/r/g ctab bs+ nt nd no r/r/g no edema A/P 1. Ac comminuted intertrochanteric fracture, lt femur. stable, transfer to tertiary care. Needs Total Femur. -Tachycardia remains. Intermediate periop risk. Risk-benefit ratio weighs in favor of proceeding directly forward to surgery on any further intervention. 2. Mechanical fall; snf placement at some point 3. Pathological fracture left hip/ femur. cont XRT - Femoral neck at the minimum when appropriate. 4. Sinus tachycardia probably due to pain/ discomfort. Echo/venous Doppler- no metastatic disease/pericardial effusion; no lower extremity DVT. 5. 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 Possible symptomatic anemia. transfusion prn. 7. Stage IV metastatic breast Ca. ER/MS positive. HER2 negative. Radiation at 2pm. outpt chemo. Problems: Exam/Review of Systems Vital Signs Vitals Vital Signs Date Time Temp Pulse Resp B/P Pulse Ox O2 Delivery O2 Flow Rate FiO2 07/01/17 14:36 98.0 116 18 123/62 96 Intake and Output 06/30/17 06/30/17 07/01/17 15:00 23:00 07:00 Intake Total 760 ml 400 ml Output Total 500 ml Balance 260 ml 400 ml Results Result Diagram: 07/01/17 0545 07/01/17 0545 Results 24 hrs Laboratory Tests Test 07/01/17 05:45 White Blood Count 3.5 L Red Blood Count 4.70 Hemoglobin 12.5 Hematocrit 39.1 Mean Corpuscular Volume 83.2 Mean Corpuscular Hemoglobin 26.6 L Mean Corpuscular Hemoglobin Concent 32.0 Red Cell Distribution Width 15.3 H Platelet Count 195 Mean Platelet Volume 9.0 Neutrophils % 60.9 Lymphocytes % 12.2 L Monocytes % 19.5 H Eosinophils % 4.0 Basophils % 1.1 Nucleated Red Blood Cells % 0.0 Neutrophils # (Manual) 2.2 Lymphocytes # 0.4 L Monocytes # 0.7 Eosinophils # 0.1 Basophils # 0.0 Nucleated Red Blood Cells # 0.0 Sodium Level 140 Potassium Level 3.5 Chloride Level 99 Carbon Dioxide Level 28 Anion Gap 17 H Blood Urea Nitrogen 17 Creatinine 0.56 Glucose Level 96 Calcium Level 10.0 Phosphorus Level 4.1 Magnesium Level 2.3 Medications Medications Current Medications Morphine Sulfate (morphine) 2 mg Q4H PRN IV breakthrough pain Last administered on 07/01/17 10:49; Admin Dose 2 MG; Start 06/22/17 at 23:00 Docusate Sodium (Colace) 100 mg BID PO Last administered on 06/24/17 20:30; Admin Dose 100 MG; Start 06/23/17 at 09:00 Senna (Senokot) 1 tab DAILY PO Last administered on 07/01/17 09:16; Admin Dose 1 TAB; Start 06/23/17 at 09:00 Ondansetron HCl (Zofran Inj) 4 mg Q6H PRN IV NAUSEA AND/OR VOMITING Last administered on 07/01/17 12:28; Admin Dose 4 MG; Start 06/22/17 at 23:00 Enoxaparin Sodium (Lovenox) 40 mg DAILY SC Last administered on 07/01/17 09:35 ; Admin Dose 40 MG; Start 06/23/17 at 10:00 Oxycodone/ Acetaminophen (Percocet (5/ 325)) 1 tab Q3 PRN PO pain; Start at 15:00 Famotidine (Pepcid) 20 mg DAILY PO Last administered on 07/01/17 09:16; Admin Dose 20 MG; Start 07/01/17 at 09:00 MISHA IVY MD Jul 01, 2017 14:53
[2017-07-01] MEDS ORDERED: HYDROCODONE/APAP (10/325) TAB PO PRN (15:30)
[2017-07-01] MEDS ORDERED: LOPERAMIDE 2 MG CAP PO PRN (15:30)
[2017-07-01 19:34] VITALS: BP 117/67; RESP 18
[2017-07-01] MEDS: FAMOTIDINE 20 MG TAB PO SCH (20:16)
[2017-07-01] MEDS: IBUPROFEN 800 MG TAB PO PRN (22:57)
[2017-07-02 02:00] VITALS: BP 108/62; RESP 18
[2017-07-02 08:09] VITALS: BP 105/64; RESP 18
[2017-07-02] MEDS: FAMOTIDINE 20 MG TAB PO SCH ×2 (09:01→21:14)
[2017-07-02] MEDS: ENOXAPARIN 40 MG/0.4 ML SYG SC SCH (09:05)
--- NOTE | 2017-07-02 09:47 | CONS ---
Date/Time of Note Date/Time of Note DATE: 07/02/17 TIME: 09:45 Assessment/Plan Assessment/Plan Chief Complaint/Hosp Course 61 yo with L breast mass with widespread disease on CT scan which demonstrates subcutaneous stranding within the right breast with a deep fluid collection measuring 4.7 x 1.2 cm , as well as diffuse sclerotic mets, mild pathologic compression of C7, T2, T4, T8 and T10 vertebral bodies as well as a prominent R axillary LN. Extensive family discussion was had with son and patient who understand she has STAGE IV disease. They understand she may need chemotherapy vs targeted therapy but these decisions will made once the IHC stains have come back. #Breast mass -this is now confirmed as breast cancer. immunohistochemistry stains are pending which will help determine what treatment is to be given. -patient is ER+/TX+/Her2 negative breast with bone only mets -I plan to start her on an aromatase inhibitor with Ibrance targeted therapy as an outpatient once radiation is completed. Patient with bone only disease can have quite a good and durable response to hormone deprivation therapy. As such I expect this patient to respond well to therapy #L femoral neck fracture -pt is s/p evaluation by orthopedic surgery who notes the large extent of fracture through ischium, acetabulum, femoral neck, and femoral shaft. -given this cannot be done at this [facility], pt will need evaluation at a tertiary care center . pt has been accepted at [facility]. awaiting bed -plan would be to radiate the femoral neck after surgery if and when cleared by orthopedic surgery #Back Pain - -pt is currently undergoing radiation treatment to spine. will clarify with rad onc exactly where they are radiating #Bone Mets -pt received 1 dose of bisphosphonate therapy during the last admission -will continue this on a q month basis Problems: Problems: Consultation Date/Type/Reason Admit Date/Time Jun 22, 2017 at 21:32 Initial Consult Date 06/23/17 Type of Consultation: Oncology Reason for Consultation metastatic ER+ breast cancer Referring Provider: DAMASO KHAN 24 HR Interval Summary Free Text/Dictation patient's pain is controlled. continues with radiation Exam/Review of Systems Vital Signs Vitals Vital Signs Date Time Temp Pulse Resp B/P Pulse Ox O2 Delivery O2 Flow Rate FiO2 07/02/17 08:09 98.1 109 18 105/64 96 Intake and Output 07/01/17 07/01/17 07/02/17 15:00 23:00 07:00 Intake Total 300 ml 350 ml Output Total 200 ml Balance 300 ml 150 ml Exam Constitutional: alert, frail, oriented Psych: no complaints Head: normocephalic Eyes: nl conjunctiva ENMT: nl external ears & nose, nl lips & teeth Neck: non-tender, supple Respiratory: clear to auscultation, normal air movement Cardiovascular: nl pulses Gastrointestinal: soft Genitourinary - Female: nl adnexae Musculoskeletal: nl extremities to inspection Extremities: normal pulses Neurological: DOCUMENT REVIEWER II-XII intact Results Result Diagram: 07/01/1754407/01/17544 Medications Medications Current Medications Morphine Sulfate (morphine) 2 mg Q4H PRN IV breakthrough pain Last administered on 07/01/17 10:49; Admin Dose 2 MG; Start 06/22/17 at 23:00 Enoxaparin Sodium (Lovenox) 40 mg DAILY SC Last administered on 07/02/17 09:05 ; Admin Dose 40 MG; Start 06/23/17 at 10:00 Docusate Sodium (Colace) 200 mg HS PO ; Start 07/01/17 at 21:00 Famotidine (Pepcid) 20 mg BID PO Last administered on 07/02/17 09:01; Admin Dose 20 MG; Start 07/01/17 at 21:00 Ondansetron HCl (Zofran Inj) 4 mg Q4 PRN IV NAUSEA AND/OR VOMITING; Start 07/01 at 17:00 Acetaminophen/ Hydrocodone Bitart ([place] (10/325)) 1 tab Q4 PRN PO MODERATE PAIN LEVEL 4-6; Start 07/01/17 at 15:30 Ibuprofen (Motrin) 800 mg Q6H PRN PO MILD PAIN LEVEL 1-3 Last administered on 22:57; Admin Dose 800 MG; Start 07/01/17 at 15:30 Loperamide HCl (Imodium Cap) 2 mg Q8 PRN PO DIARRHEA; Start 07/01/17 at 15:30 ZELDA ASHTON M.D. Jul 02, 2017 09:47
[2017-07-02 14:09] VITALS: BP 107/67; RESP 18
--- NOTE | 2017-07-02 17:30 | PDOCDIS ---
Discharge Instructions DIAGNOSIS Discharge Diagnosis Left femur fracture CONDITION Patient Condition: Stable HOME CARE INSTRUCTIONS: Special Diet: regular diet ACTIVITY: Activity Restrictions: No Weight Bearing FOLLOW UP/APPOINTMENTS Follow-up Plan [facility] pcp 1wMISHA Blankenship MD Jul 02, 2017 17:30
[2017-07-02] MEDS ORDERED: ENOX40DI12 SC (17:32)
[2017-07-02] MEDS ORDERED: IBUP800T25 PO (17:32)
[2017-07-02] MEDS ORDERED: FAMO20TA18 PO (17:32)
--- NOTE | 2017-07-02 18:47 | PN ---
Date/Time of Note Date/Time of Note DATE: 07/02/17 TIME: 18:45 Assessment/Plan VTE Prophylaxis VTE Prophylaxis Intervention: LMWH Lines/Catheters IV Catheter Type (from Nrs): Saline Lock Urinary Cath still in place: No Assessment/Plan Chief Complaint/Hosp Course S- 07/02: No events. Going to [facility] today O- vss Future XRT Schedule: Wednesday07/02/17 tx at 12:45pm; Med Response pickup at 12:15pm Weekend: None Wednesday: Holiday Wednesday: tx at 12:45pm. Med Response pickup at 12:15pm. Ryan CM [id number] PE no pallor reg, no m/r/g ctab bs+ nt nd no r/r/g no edema A/P 1. Ac comminuted intertrochanteric fracture, lt femur. stable, transfer to [facility]. Needs Total Femur. -Tachycardia remains. Intermediate periop risk. Risk-benefit ratio weighs in favor of proceeding directly forward to surgery on any further intervention. 2. Mechanical fall; snf placement at some point 3. Pathological fracture left hip/ femur. cont XRT - Femoral neck at the minimum when appropriate. 4. Sinus tachycardia probably due to pain/ discomfort. Echo/venous Doppler- no metastatic disease/pericardial effusion; no lower extremity DVT. 5. 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 Possible symptomatic anemia. transfusion prn. 7. Stage IV metastatic breast Ca. ER/ID positive. HER2 negative. Radiation at 2pm. outpt chemo. Problems: Exam/Review of Systems Vital Signs Vitals Vital Signs Date Time Temp Pulse Resp B/P Pulse Ox O2 Delivery O2 Flow Rate FiO2 07/02/17 14:09 97.3 111 18 107/67 95 Intake and Output 07/01/17 07/01/17 07/02/17 14:59 22:59 06:59 Intake Total 300 ml 350 ml Output Total 200 ml Balance 300 ml 150 ml Results Result Diagram: 07/01/17 0545 07/01/17 0545 Medications Medications Current Medications Morphine Sulfate (morphine) 2 mg Q4H PRN IV breakthrough pain Last administered on 07/01/17t 10:49; Admin Dose 2 MG; Start 06/22/17 at 23:00 Enoxaparin Sodium (Lovenox) 40 mg DAILY SC Last administered on 07/02/17 09:05 ; Admin Dose 40 MG; Start 06/23/17 at 10:00 Docusate Sodium (Colace) 200 mg HS PO ; Start 07/01/17 at 21:00 Famotidine (Pepcid) 20 mg BID PO Last administered on 07/02/17 09:01; Admin Dose 20 MG; Start 07/01/17 at 21:00 Ondansetron HCl (Zofran Inj) 4 mg Q4 PRN IV NAUSEA AND/OR VOMITING; Start 07/01 at 17:00 Acetaminophen/ Hydrocodone Bitart ([place] ()) 1 tab Q4 PRN PO MODERATE PAIN LEVEL 4-6; Start 07/01/17 at 15:30 Ibuprofen (Motrin) 800 mg Q6H PRN PO MILD PAIN LEVEL 1-3 Last administered on 22:57; Admin Dose 800 MG; Start 07/01/17 at 15:30 Loperamide HCl (Imodium Cap) 2 mg Q8 PRN PO DIARRHEA; Start 07/01/17 at 15:30 MISHA IVY MD Jul 02, 2017 18:47
[2017-07-02 20:06] VITALS: BP 114/63; RESP 18
[2017-07-02] MEDS: IBUPROFEN 800 MG TAB PO PRN (21:13)
[2017-07-02] MEDS: DOCUSATE SODIUM 100 MG CAP PO SCH (21:14)
[2017-07-02] MEDS: ONDANSETRON 4 MG INJ IV PRN (21:14)
[2017-07-03 02:00] VITALS: BP 112/65; RESP 18
[2017-07-03 07:31] VITALS: BP 108/64; RESP 18
[2017-07-03] MEDS: FAMOTIDINE 20 MG TAB PO SCH ×2 (08:55→22:08)
[2017-07-03] MEDS: ENOXAPARIN 40 MG/0.4 ML SYG SC SCH (08:59)
--- NOTE | 2017-07-03 12:37 | PN ---
Date/Time of Note Date/Time of Note DATE: 07/03/17 TIME: 12:35 Assessment/Plan VTE Prophylaxis VTE Prophylaxis Intervention: LMWH Lines/Catheters IV Catheter Type (from Nrs): Saline Lock Urinary Cath still in place: No Assessment/Plan Chief Complaint/Hosp Course S- 07/02: No events. Going to [facility] today 07/03: Pain controlled no dyspnea fever. Probably going to [facility] on Wednesday O- vss Future XRT Schedule: Wednesday07/02/17 tx at 12:45pm; Med Response pickup at 12:15pm Weekend: None Wednesday: [place] Wednesday: tx at 12:45pm. Med Response pickup at 12:15pm. Ryan CM [id number] PE no pallor reg, no m/r/g ctab bs+ nt nd no r/r/g no edema; diminished rom lt leg. A/P 1. Ac comminuted intertrochanteric fracture, Lt femur. stable, transfer to [facility] when bed available. Needs Total Femur. -Tachycardia remains. Intermediate periop risk. Risk-benefit ratio weighs in favor of proceeding directly forward to surgery. 2. Mechanical fall; snf placement at some point 3. Pathological fracture left hip/ femur. cont XRT - Femoral neck at the minimum when appropriate. 4. Sinus tachycardia probably due to pain/ discomfort. Echo/venous Doppler- no metastatic disease/pericardial effusion; no lower extremity DVT. 5. 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 Possible symptomatic anemia. transfusion prn. 7. Stage IV metastatic breast Ca. ER/GA positive. HER2 negative. Radiation at 2pm. outpt chemo. Problems: Exam/Review of Systems Vital Signs Vitals Vital Signs Date Time Temp Pulse Resp B/P Pulse Ox O2 Delivery O2 Flow Rate FiO2 07/03/17 07:31 98.8 107 18 108/64 97 Intake and Output 07/02/17 07/02/17 07/03/17 15:00 23:00 07:00 Intake Total 740 ml Balance 740 ml Results Result Diagram: 07/01/17 0545 07/01/17 0545 Medications Medications Current Medications Morphine Sulfate (morphine) 2 mg Q4H PRN IV breakthrough pain Last administered on 07/01/17t 10:49; Admin Dose 2 MG; Start 06/22/17 at 23:00 Enoxaparin Sodium (Lovenox) 40 mg DAILY SC Last administered on 07/03/17 08:59 ; Admin Dose 40 MG; Start 06/23/17 at 10:00 Docusate Sodium (Colace) 200 mg HS PO Last administered on 07/02/17 21:14; Admin Dose 200 MG; Start 07/01/17 at 21:00 Famotidine (Pepcid) 20 mg BID PO Last administered on 07/03/17 08:55; Admin Dose 20 MG; Start 07/01/17 at 21:00 Ondansetron HCl (Zofran Inj) 4 mg Q4 PRN IV NAUSEA AND/OR VOMITING Last administered on 07/02/17 21:14; Admin Dose 4 MG; Start 07/01/17 at 17:00 Acetaminophen/ Hydrocodone Bitart ([place] (10/325)) 1 tab Q4 PRN PO MODERATE PAIN LEVEL 4-6; Start 07/01/17 at 15:30 Ibuprofen (Motrin) 800 mg Q6H PRN PO MILD PAIN LEVEL 1-3 Last administered on 21:13; Admin Dose 800 MG; Start 07/01/17 at 15:30 Loperamide HCl (Imodium Cap) 2 mg Q8 PRN PO DIARRHEA; Start 07/01/17 at 15:30 MISHA IVY MD Jul 03, 2017 12:37
[2017-07-03] MEDS: LACTOBACILLUS RHAMNOSUS CAP PO SCH ×2 (13:56→22:08)
[2017-07-03] MEDS: CHOLECALCIFEROL 2,000 UNIT CAP PO SCH (13:56)
[2017-07-03 14:10] VITALS: BP 115/64; RESP 18
[2017-07-03 20:10] VITALS: BP 121/56; RESP 18
[2017-07-03] MEDS: DOCUSATE SODIUM 100 MG CAP PO SCH (22:08)
[2017-07-04] MEDS: ONDANSETRON 4 MG INJ IV PRN (00:19)
[2017-07-04] MEDS: IBUPROFEN 800 MG TAB PO PRN (00:19)
[2017-07-04 02:02] VITALS: BP 108/63; RESP 18
[2017-07-04 07:00] LABS: ABNORMAL IP MESSAGE 1; BASOPHILS % 0.5 % (0.0-2.0); EOSINOPHILS # 0.1 10^3/ul (0.0-0.5); EOSINOPHILS % 3.8 % (0.0-7.0); HEMATOCRIT 33.8 % (37.0-47.0); HEMOGLOBIN 10.9 g/dl (12.0-16.0); LYMPHOCYTES # 0.3 10^3/ul (0.8-2.9); LYMPHOCYTES % 8.7 % (15.0-51.0); MEAN CORPUSCULAR HEMOGLOBIN 26.9 pg (29.0-33.0); MEAN CORPUSCULAR HGB CONC 32.2 g/dl (32.0-37.0); MEAN CORPUSCULAR VOLUME 83.5 fl (82.0-101.0); MEAN PLATELET VOLUME 9.4 fl (7.4-10.4); MONOCYTE # 0.6 10^3/ul (0.3-0.9); MONOCYTES % 16.8 % (0.0-11.0); NEUTROPHILS % 65.1 % (39.0-77.0); PLATELET COUNT 166 10^3/UL (140-415); RED BLOOD COUNT 4.05 10^6/ul (4.20-5.40); RED CELL DISTRIBUTION WIDTH 15.3 % (11.5-14.5); WHITE BLOOD COUNT 3.7 10^3/ul (4.8-10.8)
[2017-07-04 07:21] LABS: POSITIVE DIFF @See below
[2017-07-04 07:44] LABS: CALCIUM 9.4 mg/dl (8.4-10.2); CREATININE 0.64 mg/dl (0.44-1.00); POTASSIUM 3.6 mmol/L (3.5-5.1)
[2017-07-04 07:51] VITALS: BP 108/62; RESP 20
[2017-07-04] MEDS: CHOLECALCIFEROL 2,000 UNIT CAP PO SCH (09:52)
[2017-07-04] MEDS: LACTOBACILLUS RHAMNOSUS CAP PO SCH (09:52)
[2017-07-04] MEDS: FAMOTIDINE 20 MG TAB PO SCH (09:52)
[2017-07-04] MEDS: ENOXAPARIN 40 MG/0.4 ML SYG SC SCH (09:57)
--- NOTE | 2017-07-04 12:52 | PN ---
Date/Time of Note Date/Time of Note DATE: 07/04/17 TIME: 12:51 Assessment/Plan VTE Prophylaxis VTE Prophylaxis Intervention: LMWH Lines/Catheters IV Catheter Type (from [facility]): Saline Lock Urinary Cath still in place: No Assessment/Plan Chief Complaint/Hosp Course S- 07/02: No events. Going to [facility] today 07/03: Pain controlled no dyspnea fever. Probably going to [facility] on Wednesday. 07/04: No events. Pending transfer to [facility] tomorrow or Wednesday. O- vss PE no pallor reg, no m/r/g ctab bs+ nt nd no r/r/g no edema; diminished rom lt leg. A/P 1. Ac comminuted intertrochanteric fracture, Lt femur. stable, transfer to [facility] when bed available. Needs Total Femur. -Tachycardia remains. Intermediate periop risk. Risk-benefit ratio weighs in favor of proceeding directly forward to surgery. 2. Mechanical fall; snf placement at some point 3. Pathological fracture left hip/ femur. cont XRT - Femoral neck at the minimum when appropriate. 4. Sinus tachycardia probably due to pain/ discomfort. Echo/venous Doppler- no metastatic disease/pericardial effusion; no lower extremity DVT. 5. 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 Possible symptomatic anemia. transfusion prn. 7. Stage IV metastatic breast Ca. ER/AK positive. HER2 negative. s/p Radiation. outpt chemo. Problems: Exam/Review of Systems Vital Signs Vitals Vital Signs Date Time Temp Pulse Resp B/P Pulse Ox O2 Delivery O2 Flow Rate FiO2 07/04/17 07:51 98.1 101 20 108/62 97 Intake and Output 07/03/17 07/03/17 07/04/17 15:00 23:00 07:00 Intake Total 840 ml 400 ml Output Total 2 ml Balance 840 ml 398 ml Results Result Diagram: 07/04/17 0542 07/04/17 0542 Results 24 hrs Laboratory Tests Test 07/04/17 05:42 White Blood Count 3.7 L Red Blood Count 4.05 L Hemoglobin 10.9 L Hematocrit 33.8 L Mean Corpuscular Volume 83.5 Mean Corpuscular Hemoglobin 26.9 L Mean Corpuscular Hemoglobin Concent 32.2 Red Cell Distribution Width 15.3 H Platelet Count 166 Mean Platelet Volume 9.4 Neutrophils % 65.1 Lymphocytes % 8.7 L Monocytes % 16.8 H Eosinophils % 3.8 Basophils % 0.5 Nucleated Red Blood Cells % 0.0 Neutrophils # (Manual) 2.4 Lymphocytes # 0.3 L Monocytes # 0.6 Eosinophils # 0.1 Basophils # 0.0 Nucleated Red Blood Cells # 0.0 Sodium Level 136 Potassium Level 3.6 Chloride Level 101 Carbon Dioxide Level 28 Anion Gap 11 Blood Urea Nitrogen 13 Creatinine 0.64 Glucose Level 85 Calcium Level 9.4 Medications Medications Current Medications Morphine Sulfate (morphine) 2 mg Q4H PRN IV breakthrough pain Last administered on 07/01/17 10:49; Admin Dose 2 MG; Start 06/22/17 at 23:00 Enoxaparin Sodium (Lovenox) 40 mg DAILY SC Last administered on 07/04/17 09:57 ; Admin Dose 40 MG; Start 06/23/17 at 10:00 Docusate Sodium (Colace) 200 mg HS PO Last administered on 07/03/17 22:08; Admin Dose 200 MG; Start 07/01/17 at 21:00 Famotidine (Pepcid) 20 mg BID PO Last administered on 07/04/17 09:52; Admin Dose 20 MG; Start 07/01/17 at 21:00 Ondansetron HCl (Zofran Inj) 4 mg Q4 PRN IV NAUSEA AND/OR VOMITING Last administered on 07/04/17 00:19; Admin Dose 4 MG; Start 07/01/17 at 17:00 Acetaminophen/ Hydrocodone Bitart ([place] (10/325)) 1 tab Q4 PRN PO MODERATE PAIN LEVEL 4-6; Start 07/01/17 at 15:30 Ibuprofen (Motrin) 800 mg Q6H PRN PO MILD PAIN LEVEL 1-3 Last administered on 00:19; Admin Dose 800 MG; Start 07/01/17 at 15:30 Loperamide HCl (Imodium Cap) 2 mg Q8 PRN PO DIARRHEA; Start 07/01/17 at 15:30 Lactobacillus Acidophilus/ Rhamnosus (Culturelle) 1 cap BID PO Last administered on 07/04/17 09:52; Admin Dose 1 CAP; Start 07/03/17 at 14:00 Cholecalciferol (Vitamin D) 2,000 unit DAILY PO Last administered on 07/04/17 09:52; Admin Dose 2,000 UNIT; Start 07/03/17 at 13:00 MISHA IVY MD Jul 04, 2017 12:52
[2017-07-04 13:14] VITALS: BP 113/56; RESP 20
[2017-07-05] MEDS ORDERED: FAMOTIDINE 20 MG TAB PO SCH (09:00)
--- NOTE | 2017-07-09 13:27 | PQ ---
Date/Time of Note Date/Time of Note DATE: 07/09/17 TIME: 13:[address] Ivy, A review of the medical record found a need for documentation clarification. Pt with severe malnutrition r/t wt loss 26%/2 months, BMI: 14.5, PO intake <50% x 1 month. Director Epidemiology Assessment---------06/25 Please clarify if you concur with the above assessment.. To facilitate accurate and complete coding, please catrachito ( x ) the suspected diagnosis that apply: ( ) Yes , Severe protein- calorie malnutrition ( x ) No ( ) Others [ ] mild protein calorie malnutrition [ ] moderate protein calorie malnutrition Please provide your response by clicking edit document, making your choice ( x ), click ok/save and finally click sign. You may also document your response on your progress notes. Thank you for your time. With appreciation, Kings Pike, RN, BSN, CCS, CCDS Clinical Manager Product Design Health Information Management, CDI and Coding Services [phone] Room # 1525 - [address]~ [id number] [place] Jul 09, 2017 13:27 MISHA IVY MD Jul 12, 2017 11:18
== END 2017-07-04 14:49 | disposition short-term general hospital (02) | DRG 543 ==
LOC: E/R 19:19 → MERGE 21:32 → MS2 21:32
PROVIDERS: ADMIT Family Medicine; ATTEND Family Medicine
DX: M84.552A Pathological fracture in neoplastic disease, left femur, initial encounter for fracture (principal); C79.51 Secondary malignant neoplasm of bone; R64 Cachexia; E83.52 Hypercalcemia; M84.58XA Pathological fracture in neoplastic disease, other specified site, initial encounter for fracture; Z68.1 Body mass index [BMI] 19.9 or less, adult; C50.919 Malignant neoplasm of unspecified site of unspecified female breast; D64.89 Other specified anemias; Z17.0 Estrogen receptor positive status [ER+]; R00.0 Tachycardia, unspecified
CPT/HCPCS: 71010; 72192; 73700; 77014; 77412; 80048; 80053; 80076; 81001; 82306; 83735; 84100; 84443; 85025; 85610; 85730; 87081; 93005; 93306; 93970; 96374; 96375; 96376; J1170; J1650; J2060; J2270; J2405; J3480; J7030; J7040

== ENCOUNTER → 2017-06-22 | Outpatient (CLI) | payer MEDICAID ==
[~2017-06-22] MED LIST: ALPR0.254 PO; DOCU-144 PO; DOCU-216 PO; ENOX40DI12 SC; FAMO20TA18 PO; HYDR2TAB3 PO; HYDR2TAB36 PO; IBUP800T25 PO; METH10SO PO; METO25TA7 PO; NO MEDS; ONDA-43 PO; ONDA4TAB8 PO; ONDA8TAB14 PO; OXYC-209 PO; OXYC-279 PO
--- NOTE | 2017-06-22 18:24 | RADRPT ---
PROCEDURE: XR Left Hip. CLINICAL INDICATION: Left hip pain. TECHNIQUE: Two views. Frontal and lateral. COMPARISON: No prior studies are available for comparison. FINDINGS: There is an acute left hip inferior neck fracture with marked varus deformity. There is no other fr acture or dislocation. The soft tissues are normal. Articular surfaces are intact. There is lysis of the left inferior pubic ramus and ischial tuberosity with probable nondisplaced pa thologic fracture at this site. There may be small lytic lesions of the proximal left femoral shaft . There is no radiopaque foreign body. IMPRESSION: 1. Acute left hip inferior neck fracture with marked varus deformity. 2. Lytic lesion of the left inferior pubic ramus and ischial tuberosity with probable nondisplaced pathologic fracture at this site. 3. Possible small lytic lesions of the proximal left femoral shaft. Call report: A call report of the findings was made to Dr. Killian Banda on 06/22/2017 at 1800 hours . RPTAT: QQ .Damion Christopher MD, MD Date Time Electronically viewed and signed by .Damion Christopher MD, on 06/22/2017 18:24 .R/
--- NOTE | 2017-06-22 18:25 | RADRPT ---
PROCEDURE: XR Femur. CLINICAL INDICATION: Left leg pain. TECHNIQUE: AP and lateral views of the left femur were performed. COMPARISON: No prior studies are available for comparison. FINDINGS: There is an acute left hip inferior neck fracture with marked varus deformity. There is no other fr acture or dislocation. The soft tissues are normal. Articular surfaces are intact. There is lysis of the left inferior pubic ramus and ischial tuberosity with probable nondisplaced pa thologic fracture at this site. There may be small lytic lesions of the proximal left femoral shaft . The remainder of the left femur is 10. There is no radiopaque foreign body. IMPRESSION: 1. Acute left hip inferior neck fracture with marked varus deformity. 2. Lytic lesion of the left inferior pubic ramus and ischial tuberosity with probable nondisplaced pathologic fracture at this site. 3. Possible small lytic lesions of the proximal left femoral shaft. Call report: A call report of the findings was made to Dr. Killian Banda on 06/22/2017 at 1800 hours . RPTAT: QQ .Damion Christopher MD, MD Date Time Electronically viewed and signed by .Damion Christopher MD, on 06/22/2017 18:25 .R/
== END | disposition home or self-care (01) ==
LOC: RAD 14:25 → MERGE 14:25
PROVIDERS: ATTEND Specialist
DX: C79.51 Secondary malignant neoplasm of bone (principal)
CPT/HCPCS: 73510; 73550

== ENCOUNTER 2018-03-06 18:32 | Inpatient (IN) | END 2018-03-14 21:33 | disposition home health service (06) | DRG 871 ==